=== PATIENT | female | born 1955 | race Caucasian/White ===

== ENCOUNTER → 2020-05-09 10:31 | Outpatient (CLI) | payer OTHER, SELFPAY ==
--- NOTE | ~2020-05-09 | MM_ITS ---
EXAMINATION: MM screening [facility] BI w nicky HISTORY: Screening mammogram TECHNIQUE: Craniocaudal and mediolateral oblique 3-D tomosynthesis images were obtained and synthetic 2-D images were generated. CAD analysis was submitted and interpreted. COMPARISON: 05/07/2019, 04/10/2018, 04/08/2017 BREAST PARENCHYMAL COMPOSITION: There are scattered areas of fibroglandular density. FINDINGS: There is no evidence of suspicious mass, calcification, or architectural distortion to sugg est malignancy in either breast. There has been no suspicious interval change. IMPRESSION: 1. No mammographic evidence of malignancy. 2. Recommend routine screening mammography in one year. BI-RADS Category 1: Negative Reviewed, dictated and finalized at location A. L SUPERINTENDENT
== END ==
PROVIDERS: PCP Family Medicine Adolescent Medicine; Visit Provider Obstetrics & Gynecology
DX: Z12.31 Encounter for screening mammogram for malignant neoplasm of breast (principal)
CPT/HCPCS: 77063; 77067

== ENCOUNTER 2020-08-06 09:36 | Emergency (ER) | payer MEDICARE, OTHER, SELFPAY ==
--- NOTE | ~2020-08-06 | CT_ITS ---
EXAMINATION: CT abdomen pelvis w con DATE: 08/06/2020 10:52 INDICATION: Abdominal pain. Diarrhea. Hematochezia. TECHNIQUE: Computed tomography (CT) of the abdomen and pelvis was performed with 100 mL Omnipaque 350 intravenous contrast. Automated exposure control and iterative reconstruction technique were employe d. The dose-length product was 187.22 mGy-cm. COMPARISON: None. FINDINGS: The visualized portions of the lung bases are clear without pneumonia or pleural effusion. The heart size is normal. No pericardial effusion. There is mild intrahepatic biliary duct dilatation , likely secondary to cholecystectomy. The spleen, pancreas, adrenal glands, and kidneys are normal. There is wall thickening from the transverse colon to the rectum, consistent with colitis. The append ix is normal. There are no dilated loops of bowel. There are no pathologically enlarged lymph nodes. There is no free intraperitoneal fluid. There is severe lumbar spondylosis. IMPRESSION: 1. Wall thickening from the transverse colon to the rectum, consistent with colitis. Reviewed, dictated and finalized at location A. BAKER IMPRESSION: 1. Wall thickening from the transverse colon to the rectum, consistent with col itis.
[2020-08-06 09:40] VITALS: BP 109/63; PULSE 76; RESP 20; TEMP 36.2; O2SAT 100
[2020-08-06 09:56] LABS: Basophils Absolute Auto 0.1 K/mm3 (0.0-0.1); Basophils Percent Auto 0.5 % (0.2-1.2); Eosinophils Absolute Auto 0.2 K/mm3 (0-0.3); Eosinophils Percent Auto 1.3 % (0-4.4); Hemoglobin 13.5 g/dL (12.0-15.0); Immature Granulocyte Absolute 0.04 K/mm3 (0.00-0.031); Immature Granulocyte Percent A 0.3 % (0-0.5); Lymphocytes Absolute Auto 2.29 K/mm3 (0.9-3.2); Lymphocytes Percent Auto 18.1 % (18.3-44.2); Mean Corpuscular HGB Conc 31.4 g/dl (32-36); Mean Corpuscular Hemoglobin 30.4 pg (26-34); Mean Corpuscular Volume 96.8 fl (80-100); Mean Platelet Volume 10.1 fl (7.4-10.4); Monocytes Absolute Auto 0.9 K/mm3 (0.1-0.6); Monocytes Percent Auto 6.7 % (2.6-8.5); Neutrophils Absolute Auto 9.3 K/mm3 (1.3-6.7); Neutrophils Percent Auto 73.1 % (45.5-73.1); Platelet Count Result 291 k/mm3 (150-375); Red Blood Count 4.44 M/mm3 (4.2-5.4); Red Cell Distribution Width 13.3 % (11.5-14.5); White Blood Count 12.7 K/mm3 (4.5-10.0)
[2020-08-06 10:19] LABS: Add Urine Microscopic? YES; Appearance Urine Cloudy (Clear); Bacteria Urine Trace /hpf; Bilirubin Urine Negative (Negative); Blood Urine Negative (Negative); Color Urine Yellow (Yellow); Glucose Urine UA Negative (Negative); Ketones Urine Negative (Negative); Leukocyte Esterase Ur Negative LEU/UL (Negative); Mucus Urine Heavy /lpf; Nitrate Urine Negative (Negative); Protein Urine Negative (Negative); RBC Urine 0-2 /hpf (0-2); Specific Grav Ur 1.013 (1.001-1.035); Squamous Epithelial Cell Urine Many /hpf (Few); Urobilinogen Urine Negative mg/dL (<2.0); WBC Urine 0-3 /hpf
[2020-08-06 10:24] LABS: Alanine Aminotransferase 17 U/L (4-35); Albumin Level 3.7 g/dL (3.5-5.1); Alkaline Phosphatase 57 U/L (38-126); Anion Gap 5 mmol/L (8-16); Aspartate Amino Transferase 20 U/L (14-36); Bilirubin,Total 0.5 mg/dL (0.2-1.3); Blood Urea Nitrogen 10 mg/dL (7-17); Calcium 8.9 mg/dL (8.4-10.2); Carbon Dioxide 27 mmol/L (22-30); Chloride 108 mmol/L (98-107); Estimated CRCL calculation 58 ml/min; Estimated Glomerular Filt Rate > 60; Glucose 137 mg/dL (65-105); Lipase 68 U/L (23-300); Potassium 3.9 mmol/L (3.4-5.0); Sodium 140 mmol/L (137-145)
--- NOTE | 2020-08-06 10:28 | ED.NAVMDI ---
HPI - Nausea/Vomiting/Diarrhea General Chief complaint: Nausea/Vomiting/Diarrhea Stated complaint: diarrhea Time Seen by Provider: 08/06/20 10:09 Source: patient Mode of arrival: ambulatory Limitations: no limitations History of Present Illness HPI Narrative: This is a 64-year-old female that presents the emergency department for diarrhea x3 days. Associated with crampy abdominal pain and blood in the stool. Reports she is having multiple episodes of loose stools a day. Reports nausea and vomiting as well. Denies fever, or dysuria. Related Data Home Medications Medication Instructions Recorded Confirmed diclofenac sodium 75 mg 75 mg PO BID 03/13/20 03/13/20 tablet,delayed release escitalopram oxalate 20 mg tablet 20 mg PO DAILY 03/13/20 03/13/20 methimazole 10 mg tablet 10 mg PO DAILY 03/13/20 03/13/20 omeprazole 20 mg capsule,delayed 20 mg PO DAILY 03/13/20 03/13/20 release Allergies Allergy/AdvReac Type Severity Reaction Status Date / Time No Known Allergies Allergy Verified 08/06/20 09:47 Review of Systems Review of Systems: Narrative: CONSTITUTIONAL: Denies fever GASTROINTESTINAL: Reports abdominal pain, nausea, vomiting, and diarrhea. GENITOURINARY: Denies dysuria All systems reviewed & are unremarkable except as noted in HPI and below PMFSH Past Medical History Medical History (Updated 08/06/20 @ 12:10 by Bharti Gallegos PA-C) History of depression History of gastroesophageal reflux (GERD) Surgical History Surgical History (Updated 08/06/20 @ 10:30 by Bharti Gallegos PA-C) History of cholecystectomy History of hysterectomy Family History Family History Sibling Family history of coronary artery disease Mother Family history of malignant neoplasm of breast in first degree relative Hypertension Social History Social History Smoking status: Former smoker Second hand tobacco smoke exposure: No Smoking end date: 06/30/14 Alcohol intake: current Gender identity (if verbalized by the patient): Female Exam Narrative: Exam Narrative: GENERAL: Well-appearing, well-nourished, and in no acute distress. HEAD: Normocephalic, atraumatic. EYES: EOMI. ENT: Mucous membranes moist. Oropharynx without tonsillar hypertrophy exudate or other lesions. CHEST: Clear to auscultation. No respiratory distress. No wheezes rales or rhonchi HEART: Regular rate and rhythm. No murmur heard. Normal peripheral pulses. ABDOMEN: Soft, nondistended, normal active bowel sounds. Mild tenderness to palpation throughout the abdomen, without guarding EXTREMITIES: Normal range of motion. No edema. SKIN: Warm, dry, no rash. NEURO: No focal deficits. Alert and oriented x3. PSYCH: Normal mood and affect RECTAL: Several external hemorrhoids, nonthrombosed. No active bleeding. Hemoccult negative Course Consultations Consultation #1: Spoke with Dr. Bartlett about patient and workup. Patient will be started on Levaquin and Flagyl. Instructed on clear liquid diet for the next day or two. Will call to make an appointment for follow up. Would like stool studies sent Date: 08/06/20 Time: 12:06 Vital Signs Vital signs: Vital Signs Temperature 97.1 F L 08/06/20 09:40 Pulse Rate 76 08/06/20 09:40 Respiratory Rate 20 08/06/20 09:40 Blood Pressure 109/63 08/06/20 09:40 Pulse Oximetry 100 08/06/20 09:40 Temperature 97.1 F L 08/06/20 09:40 Pulse Rate 83 08/06/20 10:34 Respiratory Rate 20 08/06/20 09:40 Blood Pressure 101/70 08/06/20 10:34 Pulse Oximetry 100 08/06/20 09:40 MDM - Nausea/Vomiting/Diarrhea MDM Narrative Medical decision making narrative: Patient presents to the ER for crampy abdominal pain and diarrhea. Was also reporting blood in stool. She is afebrile and nontoxic-appearing. Patient was orthostatic on arrival, hydrated while in the ED. CBC with mild leuko
[2020-08-06 10:32] VITALS: BP 117/52; PULSE 65
[2020-08-06 10:33] VITALS: BP 113/58; PULSE 72
[2020-08-06 10:34] VITALS: BP 101/70; PULSE 83
[2020-08-06 10:46] LABS: Prothrombin Time 13.3 Seconds (11.1-14.7)
[2020-08-06 10:47] LABS: Partial Thromboplastin Time 27.9 SECONDS (22.3-36.8)
[2020-08-06] MEDS: ONDANSETRON INJ 4 MG/2 ML VIAL IV PUSH (11:09)
[2020-08-06] MEDS: SODIUM CHLORIDE 0.9% IV 1,000 ML 999 ML IV CONT (11:09)
== END 2020-08-06 12:22 | disposition home or self-care (01) ==
PROVIDERS: Physician Assistant; Emergency Provider Emergency Medicine; PCP Family Medicine Adolescent Medicine
DX: K52.9 Noninfective gastroenteritis and colitis, unspecified (principal); K21.9 Gastro-esophageal reflux disease without esophagitis; F32.9 Major depressive disorder, single episode, unspecified; Z87.891 Personal history of nicotine dependence
CPT/HCPCS: 36415; 74177; 80053; 81001; 83690; 85025; 85610; 85730; 96361; 96374; 96375; 99284; J0131; J2405; J7030; Q9967

== ENCOUNTER → 2021-05-11 13:33 | Outpatient (CLI) | payer MEDICARE, OTHER, SELFPAY ==
--- NOTE | ~2021-05-11 | MM_ITS ---
EXAMINATION: MM screening [facility] BI w nicky HISTORY: Screening mammogram TECHNIQUE: Craniocaudal and mediolateral oblique 3-D tomosynthesis images were obtained and synthetic 2-D images were generated. Bilateral rotated lateral cc views. CAD analysis was submitted and interp reted. COMPARISON: 05/09/2020, 05/07/2019, 04/10/2018 bilateral screening mammogram examinations BREAST PARENCHYMAL COMPOSITION: The breasts are heterogeneously dense, which may obscure small masses . FINDINGS: There is no evidence of suspicious mass, calcification, or architectural distortion to sugg est malignancy in either breast. There has been no suspicious interval change. IMPRESSION: 1. No mammographic evidence of malignancy. 2. Recommend routine screening mammography in one year. BI-RADS Category 1: Negative Reviewed, dictated and finalized at location A. ING FASTENER
== END ==
PROVIDERS: PCP Family Medicine Adolescent Medicine; Visit Provider Obstetrics & Gynecology
DX: Z12.31 Encounter for screening mammogram for malignant neoplasm of breast (principal)
CPT/HCPCS: 77063; 77067

== ENCOUNTER 2021-05-16 10:00 | Outpatient (RCR) | payer MEDICARE, OTHER, SELFPAY ==
--- NOTE | 2021-04-12 15:02 | PTOPEVAL ---
INITIAL PHYSICAL THERAPY EVALUATION and PLAN OF CARE Thank you for referring Vilma Carlisle to [facility].? Vilma is scheduled to be seen for physical therapy? 1x/week for 5 weeks. Please review, sign, date and return this plan of care SO. I agree with and certify that the following plan of care is medically necessary. Referring Physician Date Admitting Provider: Attending Provider: Munir Holman MD Referring Provider: *PT Outpatient Evaluation Start: 04/12/21 13:30 Freq: Status: Active Protocol: Document 04/12/21 13:30 BAILEY (Rec: 04/12/21 15:01 BAILEY [id number]) Therapy Assessment Status Assessment Status Assessment Status Evaluation Outpatient Past Medical History Past Medical History Source of Past Medical History Recalled from Previous Visit, Confirmed with Patient/Family Neurological History Hx Neurological Disorders No Significant History Cardiovascular History Hx Cardiac Disorders No Significant History Respiratory History Hx Respiratory Disorders No Significant History Gastrointestinal History Hx Cholecystectomy Yes Hx Diverticulitis Yes Hx Gastroesophageal Reflux Disease Yes Hx Irritable Bowel Yes Genitourinary History Hx Genitourinary Disorders No Significant History Musculoskeletal History Hx Arthritis Yes: ankylosis spondylitis Hx Spinal Surgery Yes: 2 back surgeries Endocrine History Hx Hyperthyroidism Yes Reproductive History Hx Other Reproductive Disorders Yes: hysterectomy Psychosocial History Hx Anxiety Yes Hx Depression Yes Evaluation Information Problem Diagnosis other difficulties with micturition, pelvic and perineal pain Onset couple of months ago Subjective Information Vilma reports noticing a couple Query Text:As Reported By Patient/ of months ago - that she had Family the sensation that she needed to go bathroom all of the time . MD had her decrease urinary frequency - which has helped. She does have IBS - lately more loose stool than constipation - but she does have hemorrhoids. Does do exercises regularly for her back - pelvic pressure not as bad. But after her walk/run - ~4 miles 6 days/wk - will feel increase in sensation with pelvic floor region.
--- NOTE | 2021-05-16 10:57 | PTOPEVAL ---
PHYSICAL THERAPY DISCHARGE SUMMARY Thank you for referring Vilma Carlisle to [facility].? Vilma has completed 6 treatments in PT for pelvic floor strengthening and urge incontinence strategies. She has met goals set. She is to continue with her HEP as well as continue to perform levator ani contraction with current work out routine for her back. I agree with and certify that the following plan of care is medically necessary. Referring Physician Date Admitting Provider: Attending Provider: Munir Holman MD Referring Provider: Therapy Assessment Status Assessment Status Assessment Status Discharge Evaluation Information Problem Diagnosis other difficulties with micturition, pelvic and perineal pain Subjective Information Vilma reports that urination is Query Text:As Reported By Patient/ 99.9% better. Sleeping Family through the night - not getting up. Vaginal pressure sensation - varies - notices it more when up walking, shopping, etc. Did notice the sensation in the morning one time this week - which is unusual - mornings are usually the best time of day for her. Pain Assessment Timing of Pain Assessment Timing of Pain Assessment Assessment Self Report Self Report Pain Level 0 Pain Score Pain Score 0: Self Report Pelvic Health Evaluation Pelvic Floor Assessment Sustained Levator Ani Strength 3/5 - 10 ct hold Quick Levator Ani Contraction in 15 20 Seconds Rehab Teaching Rehab Teaching Teaching Topic Rehab Teaching Topic Components Anatomy/Physiology,Exercise, Home Program,Positioning As Pertains To Safety,Technique Recipient Patient Learning Preferences Demonstration,Discussion Barriers to Learning None Readiness to Learn Excellent Response Verbalizes Understanding Method Demonstration,Discussion Additional Rehab Teaching Comments review of HEP - which she is to continue with PT Clinical Summary Clinical Summary Protocol: PTEVCODE PT Clinical Summary Pelvic Organ Prolapse Distress Inventory - 33.3% Urinary Distress Inventory - 17% Vilma has done well in PT. She has increased levator ani strength and is doing well with urge strategies. She is
== END 2021-06-15 10:01 | disposition home or self-care (01) ==
LOC: ANHHIPT 10:00
PROVIDERS: PCP Family Medicine Adolescent Medicine; Visit Provider Obstetrics & Gynecology
DX: R10.2 Pelvic and perineal pain (principal); R39.198 Other difficulties with micturition
CPT/HCPCS: 97110; 97161

== ENCOUNTER → 2021-07-06 13:21 | Outpatient (CLI) | payer MEDICARE, OTHER, SELFPAY ==
--- NOTE | ~2021-07-06 | DEXA_ITS ---
Bone Density Report Name: VIJAYA KOEHLER Age: 65 Sex: Female Ethnicity: White Date of : 1955 Indication: osteopenia; monitoring treatment; height loss; hysterectomy; Referring Provider: OZIEL LOPES Study: Bone densitometry was performed. Exam Date: July 06, 2021 Accession number: [id number] Bone Density: Region BMD T-score Z-score Classification AP Spine (L1-L4) 1.007 -0.4 1.5 Normal Femoral Neck (Left) 0.592 -2.3 -0.8 Osteopenia Total Hip (Left) 0.808 -1.1 0.2 Osteopenia Femoral Neck (Right) 0.606 -2.2 -0.6 Osteopenia Total Hip (Right) 0.835 -0.9 0.4 Normal Total Hip Mean 0.822 -1.0 0.3 Normal World Health Organization criteria for BMD impression classify patients as: Normal (T-score at or above -1.0), Osteopenia (T-score between -1.0 and -2.5), or Osteoporosis (T-score at or below -2.5). 10-year Fracture Risk: FRAX not reported because: Treated for osteoporosis Previous Exams: Region Exam Age BMD T-score BMD Change BMD Change Date g/cm2 vs Baseline vs Previous AP Spine(L1-L4) 07/06/2021 65 1.007 -0.4 0.015 -0.057* 05/07/2019 63 1.064 0.2 0.072* -0.003 04/08/2017 61 1.067 0.2 0.075* 0.020 03/08/2015 59 1.047 0.0 0.055* 0.061* 02/27/2013 57 0.986 -0.6 -0.006 -0.056* 02/25/2011 55 1.042 0.0 0.050* 0.050* 01/11/2009 53 0.992 -0.5 Total Hip(Left) 07/06/2021 65 0.808 -1.1 0.026 -0.004 05/07/2019 63 0.812 -1.1 0.030* -0.018 04/08/2017 61 0.830 -0.9 0.048* 0.018 03/08/2015 59 0.812 -1.1 0.030* 0.024 02/27/2013 57 0.788 -1.3 0.006 -0.015 02/25/2011 55 0.803 -1.1 0.021 0.021 01/11/2009 53 0.782 -1.3 Total Hip(Right) 07/06/2021 65 0.835 -0.9 0.067* 0.039* 05/07/2019 63 0.796 -1.2 0.028* -0.022 04/08/2017 61 0.818 -1.0 0.050* 0.032* 03/08/2015 59 0.786 -1.3 0.018 0.004 02/27/2013 57 0.782 -1.3 0.014 0.001 02/25/2011 55 0.780 -1.3 0.013 0.013 01/11/2009 53 0.768 -1.4 *Denotes significance at 95% confidence level, LSC for AP Spine = 0.022 g/cm2, LSC for Total Hip = 0.027 g/cm2 Clinical Information Provided by Patient: Is being treated for osteoporosis Has used
== END ==
PROVIDERS: Visit Provider Obstetrics & Gynecology
DX: Z78.0 Asymptomatic menopausal state (principal); M85.852 Other specified disorders of bone density and structure, left thigh; M85.851 Other specified disorders of bone density and structure, right thigh
CPT/HCPCS: 77080

== ENCOUNTER 2022-05-10 11:47 | Outpatient (CLI) | payer MEDICARE, OTHER, SELFPAY ==
--- NOTE | 2022-05-10 12:50 | ECG_ITS ---
Measurements Intervals [place] Rate: 55 P: 56 [place]: 151 QRS: 55 QRSD: 89 T: 45 QT: 425 QTc: 410 Interpretive Statements SINUS BRADYCARDIA BASELINE ARTIFACT- I, III BORDERLINE ECG NO PREVIOUS ECG AVAILABLE FOR COMPARISON Electronically Signed On 05-10-2022 13:26:13 LIME MIXER by William Enrique D.O.
[2022-05-10 13:11] LABS: Basophils Absolute Auto 0.1 K/mm3 (0.0-0.1); Basophils Percent Auto 0.6 % (0.2-1.2); Eosinophils Absolute Auto 0.2 K/mm3 (0-0.3); Eosinophils Percent Auto 2.4 % (0-4.4); Hematocrit 38.6 % (37.0-47.0); Hemoglobin 12.2 g/dL (12.0-15.0); Immature Granulocyte Absolute 0.02 K/mm3 (0.00-0.031); Immature Granulocyte Percent A 0.2 % (0-0.5); Lymphocytes Absolute Auto 3.55 K/mm3 (0.9-3.2); Lymphocytes Percent Auto 38.1 % (18.3-44.2); Mean Corpuscular HGB Conc 31.6 g/dl (32-36); Mean Corpuscular Hemoglobin 30.4 pg (26-34); Mean Corpuscular Volume 96.3 fl (80-100); Mean Platelet Volume 9.8 fl (7.4-10.4); Monocytes Absolute Auto 0.7 K/mm3 (0.1-0.6); Monocytes Percent Auto 7.7 % (2.6-8.5); Neutrophils Absolute Auto 4.8 K/mm3 (1.3-6.7); Platelet Count Result 273 k/mm3 (150-375); Red Blood Count 4.01 M/mm3 (4.2-5.4); Red Cell Distribution Width 13.7 % (11.5-14.5); White Blood Count 9.3 K/mm3 (4.5-10.0)
[2022-05-10 13:25] LABS: Alanine Aminotransferase 25 U/L (6-35); Albumin Level 4.1 g/dL (3.5-5.1); Alkaline Phosphatase 60 U/L (38-126); Anion Gap 6 mmol/L (8-16); Aspartate Amino Transferase 27 U/L (14-36); Bilirubin,Total 0.8 mg/dL (0.2-1.3); Blood Urea Nitrogen 20 mg/dL (7-17); Calcium 8.5 mg/dL (8.4-10.2); Carbon Dioxide 28 mmol/L (22-30); Chloride 101 mmol/L (98-107); Estimated Glomerular Filt Rate > 60; Glucose 86 mg/dL (65-110); Potassium 4.1 mmol/L (3.4-5.0); Sodium 135 mmol/L (137-145)
[2022-05-10 13:28] LABS: INR 1.1; Prothrombin Time 13.3 Seconds (11.1-14.7)
[2022-05-10 13:29] LABS: Partial Thromboplastin Time 29.2 SECONDS (22.3-36.8)
== END 2022-05-10 11:48 | disposition home or self-care (01) ==
LOC: ANHSURGERY 11:52
PROVIDERS: PCP Family Medicine Adolescent Medicine; Visit Provider Urology
DX: N81.10 Cystocele, unspecified (principal); E78.00 Pure hypercholesterolemia, unspecified; Z01.818 Encounter for other preprocedural examination; R94.31 Abnormal electrocardiogram [ECG] [EKG]
CPT/HCPCS: 36415; 80053; 85025; 85610; 85730; 86850; 86900; 86901; 87086; 93005

== ENCOUNTER 2022-05-20 00:55 | Day surgery (SDC) | payer MEDICARE, OTHER, SELFPAY ==
[2022-05-10 12:11] VITALS: BP 123/54; PULSE 62; RESP 16; TEMP 36.7; O2SAT 100; BMI 23.3
--- NOTE | 2022-05-10 12:25 | PC.NURSE ---
Report to the Outpatient Waiting Room, entrance under the green pavilion located off [facility], at time _10:30AM on date __05/20/22 . Planned Procedure Time: __12:30PM . Time changes happen often and if your time is changed the preop area will call you the afternoon before. - You and your visitor will be asked to self-screen and do not enter if you have any COVID symptoms. - We encourage only one visitor and NO visitors under age 16 are allowed at this time. Your visitor will receive communication by the phone number that is given day of service. - The patient visitor is requested to social distance or may leave the building when not with patient due to restrictions. - A mask is required within the hospital. Patients may have clear liquids (water, carbonated beverages, clear teas, apple juice) until 3 hours prior to surgery with a maximum of 20 ounces. - No food from midnight until time of surgery Take the following medications with a SIP of water the morning of surgery: __ALPRAZOLAM NEEDED, ESCITALOPRAM Medications to discontinue per physician ____HOLD ALL VITAMINS/SUPPLEMENTS 3 DAYS PRE-OP-LAST DOSE 05/16/22. HOLD DICLOFENAC 7 DAYS PRE-OP PER DR MIRELES(PER PT)- LAST DOSE 05/13/22____ Please no make-up, nail romansh, hairspray, perfume, deodorant, or body powder the day of surgery. No jewelry (including any body piercings) or valuables the day of surgery, leave them at home. Please take a shower or bath the night before, or the morning of, surgery with an antibacterial soap. Wear comfortable, loose fitting clothing. Children are encouraged to wear pajamas. - Jewelry must be removed prior to entering the operating room. Rings and piercings that are not removed may be cut off. - The hospital will not accept responsibility for valuables. - Please leave all valuables, including medications, at home the day of surgery. If you are going home after surgery, a licensed company driver must drive you home. - NO public transportation without another adult. - We recommend that an adult stay with you for 24 hours following discharge. - We also recommend that you do not drive, make important decision, drink alcoholic beverages, or take any drugs that were not prescribed by your health care provider for at least 24 hours after your discharge time. Follow any additional instructions given to you from your surgeon. If you or anyone in your household have experienced Covid symptoms in the past week, please notify your surgeon or the nurse liaison at the phone number below for possible testing. Telephone instructions given to __PATIENT and asked if any additional questions and then verbalized understanding. Patient advised to call surgeon office or pre surgery nurse liaison [phone] if any additional questions.
--- NOTE | 2022-05-12 14:12 | PM.IMHP ---
H&P: HPI History of Present Illness Date/Time: 05/12/22 14:12 Chief Complaint: prolapse Narrative: 66-year-old with pelvic organ prolapse. She is not happy with the pessary. She has no stress incontinence. She is presenting for a surgical procedure Review of Systems Review of Systems: All systems reviewed & are unremarkable except as noted in HPI and below PMFSH Past Medical History Medical History History of depression History of gastroesophageal reflux (GERD) [facility] Surgical History Surgical History History of cholecystectomy History of hysterectomy Family History Family History Sibling Family history of coronary artery disease Mother Family history of malignant neoplasm of breast in first degree relative Hypertension Social History Social History Smoking packs per day: 1 Smoking cigarettes per day: 20.0 Years smoked: 20 Smoking pack-years: 20.00 Smoking status: Former smoker Tobacco type: cigarettes Second hand tobacco smoke exposure: No Smoking end date: 12/28/01 Alcohol intake: current Drinks per week: 2 Substance use: never Additional living arrangements comments: GIA Gender identity (if verbalized by the patient): Female Spiritual care concerns: No Meds Home Medications and Allergies Home Medications Medication Instructions Recorded Confirmed Type diclofenac sodium 75 mg 75 mg PO BID 03/13/20 05/10/22 History tablet,delayed release calcium carbonate 600 mg calcium 600 mg PO BID 03/22/21 05/10/22 History (1,500 mg) tablet (Calcium) golimumab 12.5 mg/mL intravenous See Rx Instructions .Route .COMPLEX 03/22/21 05/10/22 History solution (Simponi ARIA) methimazole 5 mg tablet 5 mg PO DAILY #90 tabs 12/03/21 05/10/22 Rx alprazolam 0.25 mg tablet 0.25 mg PO TID PRN anxiety #20 tabs 01/10/22 05/10/22 Rx oxyquinoline 0.025 %-sodium lauryl See Rx Instructions vaginal 03/12/22 05/10/22 Rx sulfate 0.01 % vaginal gel .COMPLEX #113.4 grams (Trimo-Abernathy Jelly) estradiol 1 mg tablet 1 mg PO DAILY #90 tabs 04/18/22 05/10/22 Rx atorvastatin 20 mg tablet 20 mg PO DAILY #90 tabs 05/03/22 05/10/22 Rx escitalopram oxalate 20 mg tablet See Rx Instructions .Route 05/09/22 05/10/22 Rx .COMPLEX #90 tabs omeprazole 20 mg capsule,delayed See Rx Instructions .Route 05/09/22 05/10/22 Rx release .COMPLEX #90 caps acetaminophen 650 mg 650 mg PO Q12H PRN Pain 05/10/22 05/10/22 History tablet,extended release (Tylenol Arthritis Pain) fluticasone propionate 50 See Rx Instructions .Route 05/10/22 05/10/22 History mcg/actuation nasal .COMPLEX PRN Congestion spray,suspension zolpidem 10 mg tablet 5 mg PO QHS 05/10/22 05/10/22 History Allergies Allergy/AdvReac Type Severity Reaction Status Date / Time No Known Allergies Allergy Verified 05/10/22 11:59 Exam Narrative: no acute distress normal breathing cystocele a +2 loss of apical support -1 Assessment and Plan Assessment and plan (1) Prolapse of vaginal vault after hysterectomy: Code(s): N99.3 - Prolapse of vaginal vault after hysterectomy Status: Acute Assessment and Plan: robotic colpopexy. Understands the risks of bleeding, infection, recurrence, persistence, damage surrounding organs, vaginal mesh extrusion, urinary tract mesh erosion, postoperative incontinence. Agrees to proceed
--- NOTE | 2022-05-17 16:09 | WPDANESEPPF ---
Anes - Initial Pre Proc Eval Procedure: Operation Date: 05/20/22 12:30 Proposed Procedures p Robotic Sacrocolpopexy, Urethral Sling - Erik Lynch MD Date/Time: 05/17/22 16:09 Surgeon: Erik Lynch MD Pre Op Diagnosis: prolapse of vaginal vault Patient Data Age: 66 Gender: F Height: 1.61 m Weight: 60.7 kg Last Vital Signs Temp 36.7 C 05/10/22 12:11 Pulse 62 05/10/22 12:11 Resp 16 05/10/22 12:11 BP 123/54 L 05/10/22 12:11 Pulse Ox 100 05/10/22 12:11 O2 Del Method Room Air 05/10/22 12:11 Allergies Allergy/AdvReac Type Severity Reaction Status Date / Time No Known Allergies Allergy Verified 05/20/22 11:03 Home Medications Medication Instructions Recorded Confirmed Type diclofenac sodium 75 mg 75 mg PO BID 03/13/20 05/10/22 History tablet,delayed release calcium carbonate 600 mg calcium 600 mg PO BID 03/22/21 05/10/22 History (1,500 mg) tablet (Calcium) golimumab 12.5 mg/mL intravenous See Rx Instructions .Route .COMPLEX 03/22/21 05/10/22 History solution (Simponi ARIA) methimazole 5 mg tablet 5 mg PO DAILY #90 tabs 12/03/21 05/10/22 Rx alprazolam 0.25 mg tablet 0.25 mg PO TID PRN anxiety #20 tabs 01/10/22 05/20/22 Rx oxyquinoline 0.025 %-sodium lauryl See Rx Instructions vaginal 03/12/22 05/10/22 Rx sulfate 0.01 % vaginal gel .COMPLEX #113.4 grams (Trimo-Abernathy Jelly) estradiol 1 mg tablet 1 mg PO DAILY #90 tabs 04/18/22 05/10/22 Rx atorvastatin 20 mg tablet 20 mg PO DAILY #90 tabs 05/03/22 05/10/22 Rx escitalopram oxalate 20 mg tablet See Rx Instructions .Route 05/09/22 05/20/22 Rx .COMPLEX #90 tabs omeprazole 20 mg capsule,delayed See Rx Instructions .Route 05/09/22 05/10/22 Rx release .COMPLEX #90 caps acetaminophen 650 mg 650 mg PO Q12H PRN Pain 05/10/22 05/10/22 History tablet,extended release (Tylenol Arthritis Pain) fluticasone propionate 50 See Rx Instructions .Route 05/10/22 05/10/22 History mcg/actuation nasal .COMPLEX PRN Congestion spray,suspension zolpidem 10 mg tablet 5 mg PO QHS 05/10/22 05/10/22 History Patient hx anesthesia problems: none Family hx anesthesia problems: none Results Review: All pre-operative results and documents have been reviewed as part of the pre-operative evaluation. [facility] Past Medical History Medical History (Updated 05/17/22 @ 16:10 by Hugo Bustos MD) Ankylosing spondylitis Anxiety History of depression History of gastroesophageal reflux (GERD) Major depressive disorder, recurrent, mild Normal colonoscopy 04/19 [facility] Osteopenia Surgical History Surgical History History of cholecystectomy History of hysterectomy Family History Family History Sibling Family history of coronary artery disease Mother Family history of malignant neoplasm of breast in first degree relative Hypertension Social History Social History Smoking packs per day: 1 Smoking cigarettes per day: 20.0 Years smoked: 20 Smoking pack-years: 20.00 Smoking status: Former smoker Tobacco type: cigarettes Second hand tobacco smoke exposure: No Smoking end date: 12/28/01 Alcohol intake: current Drinks per week: 2 Substance use: never Living arrangements: with family Additional living arrangements comments: GIA Gender identity (if verbalized by the patient): Female Spiritual care concerns: No Anes - Eval Final PreProcedure Day of Procedure 05/17/22 16:09 Patient weight: normal Heart: regular rate and rhythm Lungs: clear to auscultation and normal air movement Airway: Mallampati scale class II Neurological: alert and oriented Last oral intake: >/= 8 hours ASA classification: III Emergent: no Anesthetic plan: proceed Anesthesia type and monitoring: general ETT Results Revi
[2022-05-20] VITALS (11 sets, daily range): BP systolic 120–143; BP diastolic 60–74; PULSE 57–83; RESP 12–20; TEMP 36.2–36.7; O2SAT 94–100
--- NOTE | 2022-05-20 07:16 | WPDHPUPDATE1 ---
History and Physical Update Update Date/Time: 05/20/22 07:16 History and Physical has been reviewed, including an updated exam of the patient. There are NO changes in the patient's condition. Risks, benefits, and alternatives have been discussed and questions answered. Patient agrees to proceed with procedure.
[2022-05-20] MEDS: LACTATED RINGERS 1,000 ML 30 ML IV CONT ×2 (11:03→14:30)
[2022-05-20] MEDS: ceFAZolin 2 GM/D5W 50 ML 2 GM/50 ML BAG IVPB (12:17)
--- NOTE | 2022-05-20 14:23 | P.OP_ITS ---
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 She desires surgical correction. She understands risks of bleeding, infection, diskitis, damage to surrounding organs, damage to the bowel or urinary tract, recurrence of prolapse, dyspareunia, vaginal mesh exposure, urinary tract mesh exposure, obstructive voiding requiring secondary procedure, hip and leg pain, postoperative stress incontinence, and other perioperative intraoperative and postoperative complications. She is to proceed Findings See below Description of Procedure She was correctly identified. Informed consent obtained. She is brought to the operating room. She was given general anesthesia. She was placed in the lithotomy position. She was given appropriate perioperative antibiotics. She was prepped and draped in a sterile fashion. A time-out performed. I anesthetized the skin 3 fingerbreadths cephalad to the umbilicus. I incised the skin. I located the fascia. I grasped the fascia with Katiana clamps. I incised the fascia sharply and a Lockhart type technique. I placed Vicryl sutures for later fascial closure. I placed a midline trocar. Under direct vision placed 2 additional trocars in the right upper quadrant and 2 additional trocars in the left upper quadrant. She was placed in steep Trendelenburg. The robot was docked. I sat at the console. With the Sizer in the vagina and created a plane on the anterior and posterior vaginal wall for several cm taking great care not to injure the vagina, bladder, or rectum. I introduced the mesh into the vagina. I sewed the anterior leaflet of mesh on the anterior vaginal wall and posterior leaf of the mesh on the posterior vaginal wall with several suture s of 2 0 [place]-Tarik taking great care not to go through and through. I then opened up the peritoneum over the sacral promontory. I carried this incision into the cul-de-sac. I freed up the edges for later retroperitonealization of the mesh. I located the anterior longitudinal ligament of the sacrum. I cleaned off any fatty tissues. I then tensioned my mesh appropriately. I did a vaginal exam to ensure prolapse reduction without undue tension. I then sewed the proximal leaflet of mesh onto the ligament with several sutures of 2 0 [place]- Tarik. I then used a 2 0 Monocryl to meticulously retroperitonealized all mesh. I allowed the colon to go back into its normal anatomic location. There is no sign of impingement. The abdomen was exited and the trocars removed. The fascial sutures were tied down. The wounds were all irrigated and closed with 4 O Monocryl and skin glue. She was then repositioned for cystoscopy. The bladder showed no evidence of surgical artifact or tumor. Both ureters were seen to excrete clear yellow urine and wires were passed up both ureters to document patency. I cut the excess sling material. I closed incisions with glue. She was awakened and transferred to the PACU in stable condition. Implants Sacral colpopexy mesh Urethral sling Estimated Blood Loss 10 Packing No Pathology None sent Complications No immediate complications Condition Stable Disposition PACU
[2022-05-20] MEDS: fentaNYL CITRATE INJ (*CRX) 100 MCG/2 ML VIAL 25 MCG IV PUSH ×4 (15:03→15:25)
== END 2022-05-20 16:55 | disposition home or self-care (01) ==
PROVIDERS: PCP Family Medicine Adolescent Medicine; Visit Provider Urology
PROC: (CPT 57425; principal; 2022-05-20 12:30)
DX: N99.3 Prolapse of vaginal vault after hysterectomy (principal); K21.9 Gastro-esophageal reflux disease without esophagitis; F32.A Depression, unspecified; F41.9 Anxiety disorder, unspecified; M85.80 Other specified disorders of bone density and structure, unspecified site; Z87.891 Personal history of nicotine dependence
CPT/HCPCS: 57425; 57288; A9270; C1758; C1769; C1781; C9290; J0461; J0690; J1100; J1170; J2250; J2370; J2405; J2704; J3010; J7030; J7120

== ENCOUNTER → 2022-07-04 10:51 | Outpatient (CLI) | payer MEDICARE, OTHER, SELFPAY ==
--- NOTE | ~2022-07-04 | MMUS_ITS ---
EXAMINATION: MM diagnostic sahil BI w nicky, US breast LT limited HISTORY: Palpable lump in the upper outer quadrant of the left breast TECHNIQUE: Craniocaudal, mediolateral, and mediolateral oblique 3-D tomosynthesis images of the breas ts were performed and synthetic 2-D images were generated. CAD analysis was submitted and interpreted . High resolution limited left breast ultrasound was performed. COMPARISON: 05/11/2021, 05/09/2020, 05/09/2019 BREAST PARENCHYMAL COMPOSITION: The breasts are heterogeneously dense, which may obscure small masses . FINDINGS: MAMMOGRAPHIC FINDINGS: No suspicious mass, calcification, or architectural distortion are identified in either breast to sug gest malignancy. There has been no suspicious interval change. No mammographic correlate is identifie d for the reported palpable abnormality of concern of the left breast. ULTRASOUND: There is no evidence of focal abnormal solid or cystic mass in the vicinity of the reported palpable abnormality of concern of the left breast. IMPRESSION: 1. No specific mammographic or sonographic correlate is identified for the reported palpable abnormal ity of concern. Further evaluation at this time should be based on clinical assessment. Continued fol low-up physical examination is recommended. 2. Recommend routine screening mammography in one year. BI-RADS Category 1: Negative Reviewed, dictated and finalized at location A. NCED NURSING PROFESSOR IMPRESSION: 1. No specific mammographic or sonographic correlate is identified for the repo rted palpable abnormality of concern. Further evaluation at this time should be based on clinical assessment. Continued follow-up physical examination is dylon mmended. 2. Recommend routine screening mammography in one year. BI-RADS Category 1: Negative
== END ==
PROVIDERS: PCP Family Medicine Adolescent Medicine; Visit Provider Obstetrics & Gynecology
DX: N63.21 Unspecified lump in the left breast, upper outer quadrant (principal)
CPT/HCPCS: 76642; 77062; 77066; G0279

== ENCOUNTER 2022-08-28 14:27 | Emergency (ER) | payer MEDICARE, OTHER, SELFPAY ==
[2022-08-28] VITALS (16 sets, daily range): BP systolic 109–136; BP diastolic 53–75; PULSE 52–72; RESP 9–27; TEMP 35.7–37.3; O2SAT 84–100
--- NOTE | ~2022-08-28 | CT_ITS ---
EXAMINATION: CTA chest PE protocol DATE: 08/28/2022 21:59 INDICATION: Transient alteration of awareness TECHNIQUE: Computed tomography angiography (CTA) of the chest was performed with 100 mL Omnipaque-350 intravenous contrast timed to evaluate the pulmonary arteries. Coronal maximum intensity projection 3D-reconstructions were created by the technologist. The dose-length product (DLP) was 156.44 mGy-cm. Automated exposure control and iterative reconstruction technique were employed. COMPARISON: None. FINDINGS: The pulmonary arteries are well-opacified. No pulmonary embolism is identified. The lungs a re free of acute opacities. No pleural effusion or pneumothorax. No pathologically enlarged thoracic lymph nodes are identified. The heart size is normal. There is a moderate-sized sliding hiatal hernia . The gallbladder is surgically absent. There is mild dependent atelectasis. IMPRESSION: 1. No pulmonary embolism or acute cardiopulmonary abnormality. Reviewed, dictated and finalized at location F. ERTIBLE TOP INSTALLER
--- NOTE | ~2022-08-28 | XR_ITS ---
EXAMINATION: XR chest 1V portable INDICATION: Transient alteration of awareness TECHNIQUE: Portable AP chest at 2015 hours COMPARISON: 10/27/2006 FINDINGS: The lungs are free of acute opacities. No pleural effusion or pneumothorax. The cardiomedia stinal silhouette is normal. The visualized bones and soft tissues are unremarkable. Surgical clips i n the right upper quadrant are likely from prior cholecystectomy. IMPRESSION: 1. No acute cardiopulmonary abnormality. Reviewed, dictated and finalized at location F. ORMANCE MAKEUP ARTIST
--- NOTE | 2022-08-28 15:10 | ECG_ITS ---
Measurements Intervals [place] Rate: 50 P: 57 DC: 138 QRS: 69 QRSD: 93 T: 49 QT: 450 QTc: 414 Interpretive Statements SINUS BRADYCARDIA BASELINE ARTIFACT- I, III, AVR, AVL, V1 BORDERLINE ECG COMPARED TO ECG 05/10/2022 13:10:39 NO SIGNIFICANT CHANGES Electronically Signed On 08-28-2022 15:39:17 FARM MANAGEMENT TEACHER by William Enrique D.O.
[2022-08-28 15:30] LABS: Basophils Absolute Auto 0.1 K/mm3 (0.0-0.1); Basophils Percent Auto 0.3 % (0.2-1.2); Eosinophils Absolute Auto 0.2 K/mm3 (0-0.3); Eosinophils Percent Auto 1.2 % (0-4.4); Hematocrit 38.8 % (37.0-47.0); Hemoglobin 12.4 g/dL (12.0-15.0); Immature Granulocyte Absolute 0.05 K/mm3 (0.00-0.031); Immature Granulocyte Percent A 0.3 % (0-0.5); Lymphocytes Absolute Auto 2.32 K/mm3 (0.9-3.2); Mean Corpuscular Hemoglobin 30.4 pg (26-34); Mean Corpuscular Volume 95.1 fl (80-100); Mean Platelet Volume 10.5 fl (7.4-10.4); Monocytes Absolute Auto 1.2 K/mm3 (0.1-0.6); Monocytes Percent Auto 8.5 % (2.6-8.5); Neutrophils Absolute Auto 10.7 K/mm3 (1.3-6.7); Neutrophils Percent Auto 73.7 % (45.5-73.1); Platelet Count Result 239 k/mm3 (150-375); Red Blood Count 4.08 M/mm3 (4.2-5.4); Red Cell Distribution Width 13.8 % (11.5-14.5); White Blood Count 14.5 K/mm3 (4.5-10.0)
[2022-08-28 15:48] LABS: Alanine Aminotransferase 31 U/L (6-35); Alkaline Phosphatase 55 U/L (38-126); Anion Gap 2 mmol/L (8-16); Aspartate Amino Transferase 31 U/L (14-36); Bilirubin,Total 0.6 mg/dL (0.2-1.3); Blood Urea Nitrogen 16 mg/dL (7-17); Calcium 8.8 mg/dL (8.4-10.2); Carbon Dioxide 32 mmol/L (22-30); Chloride 102 mmol/L (98-107); Estimated CRCL calculation 56 ml/min; Estimated Glomerular Filt Rate > 60; Glucose 96 mg/dL (65-110); Potassium 4.2 mmol/L (3.4-5.0); Sodium 136 mmol/L (137-145)
--- NOTE | 2022-08-28 20:15 | ED.GENADULT ---
HPI - General Adult General Chief complaint: Syncope Stated complaint: surgery today, syncope after got home Time Seen by Provider: 08/28/22 20:03 Source: RN notes reviewed History of Present Illness HPI narrative: Patient presents emergency department from home for syncopal episode. Patient states syncopal episode occurred just prior to arrival approximately 1:30 PM today. Patient had a cystoscopy sling procedure done this morning by Dr. Lynch states that she had returned home she states upon returning home she had taken her [place] and had gone to sleep. States that she had woken up at approximately 1 and had laid in bed and was talking her states she then got up to go to the bathroom and gone to the bathroom and sat down on the toilet she states she she had gone to the bathroom got up off the toilet and then was walking back out and was going to be taking her pain medication when she began to feel dizzy then had a syncopal episode. Per the patient's who is present also gives history the patient was caught before she fell the patient had a brief loss of consciousness and was back to being awake they called Dr. Lynch's office and was recommended come in for further evaluation. Patient is currently laying in bed and has no complaints of pain other than being sore in the pelvic region from her surgery she denies any fevers or chills chest pain shortness of breath abdominal pain or any other symptoms Related Data Home Medications Medication Instructions Recorded Confirmed calcium carbonate 600 mg calcium 600 mg PO BID 03/22/21 08/20/22 (1,500 mg) tablet (Calcium) golimumab 12.5 mg/mL intravenous See Rx Instructions .Route .COMPLEX 03/22/21 08/20/22 solution (Simponi ARIA) acetaminophen 650 mg 650 mg PO Q12H PRN Pain 05/10/22 08/20/22 tablet,extended release (Tylenol Arthritis Pain) fluticasone propionate 50 See Rx Instructions .Route 05/10/22 08/20/22 mcg/actuation nasal .COMPLEX PRN Congestion spray,suspension meloxicam 7.5 mg tablet 7.5 mg PO DAILY 08/20/22 08/20/22 Allergies Allergy/AdvReac Type Severity Reaction Status Date / Time No Known Allergies Allergy Verified 08/20/22 09:47 Review of Systems Review of Systems: Gen.: Denies fevers or chills ENT: Denies congestion Respiratory: Denies shortness of breath or cough CV: Reports syncope GI: Denies abdominal pain nausea, emesis or diarrhea denies burning, urgency, frequency or hematuria Musculoskeletal: Denies back pain or muscle pain Neuro: Denies numbness, tingling, weakness or focal weakness Skin: Denies rash Except as documented, all other systems reviewed and negative PMFSH Past Medical History Medical History Ankylosing spondylitis Anxiety History of depression History of gastroesophageal reflux (GERD) Major depressive disorder, recurrent, mild Normal colonoscopy 04/19 [facility] Osteopenia Surgical History Surgical History History of cholecystectomy History of hysterectomy Family History Family History Sibling Family history of coronary artery disease Mother Family history of malignant neoplasm of breast in first degree relative Hypertension Social History Social History Smoking packs per day: 1 Smoking cigarettes per day: 20.0 Years smoked: 20 Smoking pack-years: 20.00 Smoking status: Former smoker Tobacco type: cigarettes Second hand tobacco smoke exposure: No Smoking end date: 12/28/01 Alcohol intake: current Drinks per week: 2 Substance use: never Living arrangements: with family Additional living arrangements comments: HUSB Gender identity (if verbalized by the patient): Female Spiritual care concerns: No Exam Narrative: APPE
[2022-08-28] MEDS: SODIUM CHLORIDE 0.9% IV 1,000 ML 999 ML IV CONT (20:28)
[2022-08-28 21:02] LABS: Prothrombin Time 13.2 Seconds (11.1-14.7)
[2022-08-28 21:03] LABS: Partial Thromboplastin Time 29.2 SECONDS (22.3-36.8)
[2022-08-28 21:26] LABS: Appearance Urine Clear (Clear); Bilirubin Urine Negative (Negative); Blood Urine Trace-intact (Negative); Color Urine Yellow (Yellow); Glucose Urine UA Negative (Negative); Ketones Urine Negative (Negative); Leukocyte Esterase Ur Negative LEU/UL (Negative); Nitrate Urine Negative (Negative); Protein Urine Negative (Negative); Specific Grav Ur 1.015 (1.001-1.035); pH Urine 8.5 (5.0-9.0)
[2022-08-28 21:31] LABS: Add Urine Microscopic? NO
[2022-08-28 21:38] LABS: Troponin I < 0.012 ng/mL (0.000-0.034)
[2022-08-28 21:47] LABS: Bacteria Urine Trace /hpf; Squamous Epithelial Cell Urine Rare /hpf (Few); WBC Urine 0-3 /hpf
[2022-08-29 00:02] LABS: Troponin I < 0.012 ng/mL (0.000-0.034)
[2022-08-29 00:36] VITALS: BP 132/78; PULSE 69; RESP 16; O2SAT 99
== END 2022-08-29 00:38 | disposition home or self-care (01) ==
PROVIDERS: Emergency Medicine; Emergency Provider Emergency Medicine; PCP Family Medicine Adolescent Medicine
DX: R55 Syncope and collapse (principal); Z98.890 Other specified postprocedural states; F33.0 Major depressive disorder, recurrent, mild; F41.9 Anxiety disorder, unspecified; M85.80 Other specified disorders of bone density and structure, unspecified site; Z87.891 Personal history of nicotine dependence
CPT/HCPCS: 36415; 71045; 71275; 80053; 81003; 84484; 85025; 85610; 85730; 93005; 96360; 96361; 99284; J7030; Q9967

== ENCOUNTER 2022-09-11 10:26 | Outpatient (CLI) | payer MEDICARE, OTHER, SELFPAY ==
--- NOTE | ~2022-09-11 | US_ITS ---
EXAMINATION: US thyroid DATE: 09/11/2022 11:35 INDICATION: Thyrotoxicosis with diffuse goiter TECHNIQUE: Multiple ultrasound images of the thyroid were obtained. COMPARISON: 05/20/2018 FINDINGS: The right thyroid lobe measures 5.4 x 2.8 x 2.8 cm. The left thyroid lobe measures 4.2 x 1.7 x 1.9 c m. Again seen are multiple bilateral thyroid nodules. The largest is a 2.8 x 1.7 x 2.0 cm solid wide r than tall hypoechoic nodule with smooth margins and without echogenic foci (TI-RADS 4, moderately s uspicious , FNA if >=1.5 cm, annual followup is >=1 cm) , previously measuring 2.4 x 1.4 x 1.9 cm . The next largest is a 1.8 x 1.8 x 1.6 cm predominantly solid hypoechoic nodule in the lateral right t hyroid with smooth well-defined margins and without echogenic foci (TI-RADS 5, highly suspicious , FN A if >=1.0 cm, annual followup is >0.5 cm) which previously measured 1.9 x 1.3 x 1.1 cm and previousl y biopsied on 06/05/2018. Also unchanged is a similar appearing 1.3 x 0.5 cm TI RADS 5 nodule the righ t side of the thyroid isthmus. 1.7 cm also completely cystic TI RADS 1 nodule in the inferior right t hyroid. No significant interval change in a 1.3 x 0.9 x 0.7 cm TI RADS 5 solid hypoechoic nodule with echogenic foci in the deep left thyroid previously measuring 1.2 x 0.9 x 0.5 cm, also with interval biopsy. The remaining bilateral thyroid nodules all measure less than 1 cm . IMPRESSION: 1. Stable appearance of a multinodular goiter with no significant interval change including of the pr eviously biopsied 2 largest TI RADS 5 nodules. Correlate with pathology from the prior biopsies which is not currently available on the electronic medical record. Reviewed, dictated and finalized at location B. IMPRESSION: 1. Stable appearance of a multinodular goiter with no significant interval jacob ge including of the previously biopsied 2 largest TI RADS 5 nodules. Correlate with pathology from the prior biopsies which is not currently available on the electronic medical record.
== END 2022-09-11 10:27 | disposition home or self-care (01) ==
PROVIDERS: PCP Family Medicine Adolescent Medicine; Visit Provider Physician Assistant
DX: E05.00 Thyrotoxicosis with diffuse goiter without thyrotoxic crisis or storm (principal); E04.2 Nontoxic multinodular goiter
CPT/HCPCS: 76536

== ENCOUNTER 2022-09-24 10:30 | Outpatient (CLI) | payer MEDICARE, OTHER, SELFPAY ==
--- NOTE | 2022-09-27 11:44 | WPDHOLTEREM ---
Holter/Event Monitor Holter/Event Monitor Date of procedure: 09/24/22 Holter/Event Procedure: 48 Hr Holter Monitor Indications: Palpitations Conclusion: 1. 48 hour holter monitor on 09/24/22. 2. Underlying rhythm is sinus rhythm. HR range 44-118 bpm; average HR 56 bpm. 3. There are 17 premature supraventricular complexes and 1 supraventricular couplet. No supraventricular tachycardia. 4. No premature ventricular complexes. No ventricular tachycardia. 5. No sinoatrial or atrioventricular blocks. No significant pauses greater than 2 seconds. 6. Patient reports symptoms of lightheadedness, rapid heart beat which demonstrate sinus rhythm, HR range 65-88 bpm.
== END 2022-09-24 10:31 | disposition home or self-care (01) ==
LOC: ANHCARD 10:31
PROVIDERS: PCP Family Medicine Adolescent Medicine; Visit Provider Physician Assistant
DX: R00.2 Palpitations (principal); R55 Syncope and collapse
CPT/HCPCS: 93225; 93226

== ENCOUNTER 2023-07-10 13:29 | Outpatient (CLI) | payer MEDICARE, OTHER, SELFPAY ==
--- NOTE | ~2023-07-10 | NM_ITS ---
EXAMINATION: NM thyroid scan w uptake DATE: 07/11/2023 14:24 INDICATION: Multinodular goiter. Rule out toxic nodule. COMPARISON: Ultrasound dated 09/11/2022 TECHNIQUE: 368 microcuries I-123 was administered orally in capsule form. Scintigraphic images of th e thyroid gland were obtained at 24 hours. Thyroid uptake was calculated by the technologist. FINDINGS: The thyroid uptake is 30.7% (normal 10-30%), with the right lobe measuring 26.3% uptake and the left 4.9%. The asymmetric increased uptake in the right thyroid appears to be located primarily at the lat eral mid to lower right thyroid which appears to correspond in location to the 2.8 cm TI RADS 4 right thyroid mass suggesting a hyperfunctioning nodule. IMPRESSION: 1. Markedly asymmetric thyroid scintigraphy with elevated 24-hour iodine uptake with the region of i ncreased activity appearing to localize to the region of a 2.8 cm likely hyperfunctioning TI RADS 4 t hyroid mass. Reviewed, dictated and finalized at location A. T METAL INSTALLER IMPRESSION: 1. Markedly asymmetric thyroid scintigraphy with elevated 24-hour iodine uptak e with the region of increased activity appearing to localize to the region of a 2.8 cm likely hyperfunctioning TI RADS 4 thyroid mass.
== END 2023-07-10 13:30 | disposition home or self-care (01) ==
LOC: ANHIMG 13:30
PROVIDERS: PCP Family Medicine Adolescent Medicine; Visit Provider Internal Medicine
DX: E04.2 Nontoxic multinodular goiter (principal); E05.20 Thyrotoxicosis with toxic multinodular goiter without thyrotoxic crisis or storm
CPT/HCPCS: 78014; A9516

== ENCOUNTER 2023-07-23 14:53 | Outpatient (CLI) | payer MEDICARE, OTHER, SELFPAY ==
--- NOTE | ~2023-07-23 | US_ITS ---
US thyroid INDICATION: Thyroid goiter TECHNIQUE: Real-time sonographic images of the thyroid gland were obtained. COMPARISON: Comparison to multiple prior studies sequentially, with oldest reviewed study dated 05/01. FINDINGS: The right thyroid lobe measures 5 x 3 x 2 cm. The left thyroid lobe measures 5 x 2 x 1.3 c m. Thyroid gland is diffusely heterogeneous containing multiple bilateral thyroid masses. Largest com plex hypoechoic mass of the right lobe measures 2.8 x 1.7 x 2.1 cm compared with 1.9 x 2.4 x 1.4 cm o n 05/20/2018. This mass is solid, hypoechoic, wider than tall, smoothly marginated without echogenic foci, TR 4. Also in the right lobe there is a slightly hyperechoic 2.3 x 1.7 x 1.7 cm mass with solid appearance, wider than tall, smoothly marginated with punctate echogenic foci, TR 5. This compared 1.8 x 1.1 x 1 .3 cm on 05/20/2018. There are multiple small subcentimeter hypoechoic masses of the left thyroid lob e, TR 4, without significant change from prior studies. IMPRESSION: 1. Enlarging dominant right thyroid masses. Ultrasound-guided fine-needle aspiration biopsies recomm ended. Reviewed, dictated and finalized at location L. ARCH ASST IMPRESSION: 1. Enlarging dominant right thyroid masses. Ultrasound-guided fine-needle aspi ration biopsies recommended.
== END 2023-07-23 14:54 | disposition home or self-care (01) ==
LOC: ANHIMG 14:55
PROVIDERS: PCP Family Medicine Adolescent Medicine; Visit Provider Internal Medicine
DX: E04.2 Nontoxic multinodular goiter (principal); E05.90 Thyrotoxicosis, unspecified without thyrotoxic crisis or storm
CPT/HCPCS: 76536

== ENCOUNTER 2023-08-25 16:38 | Emergency (ER) | payer MEDICARE, OTHER, SELFPAY ==
--- NOTE | ~2023-08-25 | XR_ITS ---
EXAMINATION: XR chest 2V Exam Date/Time: 08/25/2023 17:00 AOC AIRSPACE CONTROL OFFICER HISTORY: Chest pain, LEFT SIDED PAIN, IRREGULAR EKG AT [facility] OFFICE Comparison: 08/28/2022. RESULT: Lines, tubes, and devices: Cholecystectomy clips. Lungs and pleura: Clear. Cardiomediastinal silhouette: Stable. Other: No acute osseous or upper abdominal finding. IMPRESSION: No acute cardiopulmonary process. Reviewed, dictated and finalized at location K. AIRSPACE CONTROL OFFICER
--- NOTE | 2023-08-25 16:41 | ECG_ITS ---
Measurements Intervals [place] Rate: 72 P: 58 [place]: 138 QRS: 48 QRSD: 90 T: 36 QT: 382 QTc: 418 Interpretive Statements SINUS RHYTHM NORMAL ELECTROCARDIOGRAM COMPARED TO ECG 08/28/2022 15:19:18 HEART RATE INCREASED, NO OTHER DIFFERENCE Electronically Signed On 08-25-2023 18:40:30 CADMIUM PLATER by Kwadwo Teran M.D.
[2023-08-25 16:45] VITALS: BP 149/65; PULSE 75; RESP 16; TEMP 36.8; O2SAT 99
--- NOTE | 2023-08-25 16:52 | ED.CHESTPAIN ---
HPI - Chest Pain General Chief Complaint: Chest Pain <LATANYA Delacruz Last Filed: 08/25/23 17:04> Stated Complaint: Chest pain <LATANYA Delacruz Last Filed: 08/25/23 17:04> Time Seen by Provider: 08/25/23 16:50 <LATANYA Delacruz Last Filed: 08/25/23 17:04> Focused HPI: Patient is a 68 y/o female, with PMH of HLD, hyperthyroidism, who presents to the ED with c/o CP. Patient reports she has had intermittent pain in her mid sternal and left sided chest since Friday. She describes the pain as a deep ache and heaviness, extending into and down her left arm. Also reports intermittent tingling in her L hand. Pain is intermittent, no significant aggravating or alleviating factors, no worsening with exertion. She had a more severe episode of the chest pain this morning. She went to her primary care doctor's office this afternoon and was referred to the ED for further evaluation. She states she was told her EKG was abnormal in the office. Patient denies any current pain. Denies SOB, pain/swelling in BLE, cough, cold sx's, fevers. Denies Hx of HTN, DM. She is a former smoker. FHx of cardiac disease is brother (at age 38) and sister (72). GENERAL: Well-appearing, well-nourished, and in no acute distress. HEAD: Normocephalic, atraumatic. CHEST: Clear to auscultation. ?No respiratory distress. HEART: Regular rate and rhythm.? MSK: No lower extremity edema. No calf tenderness. NEURO: ?Alert and oriented x3. Patient screened in triage and initial orders placed.? ?Additional care and disposition to be based upon?diagnostic testing and treatment. <LATANYA Dleacruz Last Filed: 08/25/23 17:04> Source: patient <LATANYA Delacruz Last Filed: 08/25/23 17:04> Mode of arrival: ambulatory <LATANYA Delacruz Filed: 08/25/23 17:04> Limitations: no limitations <Bárbara Montgomery PA-C - Last Filed: 08/25/23 17:04> Related Data Home Medications: Home Medications Medication Instructions Recorded Confirmed calcium carbonate 600 mg calcium 600 mg PO BID 03/22/21 08/25/23 (1,500 mg) tablet (Calcium) golimumab 12.5 mg/mL intravenous See Rx Instructions .Route .COMPLEX 03/22/21 08/25/23 solution (Simponi ARIA) acetaminophen 650 mg 650 mg PO Q12H PRN Pain 05/10/22 08/25/23 tablet,extended release (Tylenol Arthritis Pain) diclofenac sodium 25 mg 25 mg PO BID 03/27/23 08/25/23 tablet,delayed release <LATANYA Delacruz Last Filed: 08/25/23 17:04> Allergies/Adverse Reactions: Allergies Allergy/AdvReac Type Severity Reaction Status Date / Time No Known Allergies Allergy Verified 08/25/23 16:07 <Bárbara Montgomery PA-C - Last Filed: 08/25/23 17:04> Review of Systems Review of Systems: All systems as dictated in HPI <LATANYA Dunlap Last Filed: 08/26/23 01:43> [facility] Past Medical History Medical History: Medical History Ankylosing spondylitis History of depression History of gastroesophageal reflux (GERD) Major depressive disorder, recurrent, mild Normal colonoscopy 04/19 [facility] Osteopenia Palpitations Thyrotoxicosis, unspecified without thyrotoxic crisis or storm <LATANYA Delacruz Last Filed: 08/25/23 17:04> Surgical History Surgical History: Surgical History History of cholecystectomy History of hysterectomy <LATANYA Delacruz Last Filed: 08/25/23 17:04> Family History Family History: Family History Sibling Family history of coronary artery disease Mother Family history of malignant neoplasm of breast in first degree relative Hypertension <Bárbara Montgomery PA-C - Last Filed: 08/25/23 17:04> Social History Social Histo
[2023-08-25 17:16] LABS: Basophils Absolute Auto 0.1 K/mm3 (0.0-0.1); Basophils Percent Auto 0.6 % (0.2-1.2); Eosinophils Absolute Auto 0.2 K/mm3 (0-0.3); Eosinophils Percent Auto 2.1 % (0-4.4); Hematocrit 36.3 % (37.0-47.0); Hemoglobin 11.5 g/dL (12.0-15.0); Immature Granulocyte Absolute 0.03 K/mm3 (0.00-0.031); Immature Granulocyte Percent A 0.3 % (0-0.5); Lymphocytes Absolute Auto 3.52 K/mm3 (0.9-3.2); Lymphocytes Percent Auto 32.4 % (18.3-44.2); Mean Corpuscular HGB Conc 31.7 g/dl (32-36); Mean Corpuscular Hemoglobin 30.3 pg (26-34); Mean Corpuscular Volume 95.8 fl (80-100); Mean Platelet Volume 10.3 fl (7.4-10.4); Monocytes Absolute Auto 0.8 K/mm3 (0.1-0.6); Monocytes Percent Auto 7.7 % (2.6-8.5); Neutrophils Absolute Auto 6.2 K/mm3 (1.3-6.7); Neutrophils Percent Auto 56.9 % (45.5-73.1); Platelet Count Result 255 k/mm3 (150-375); Red Blood Count 3.79 M/mm3 (4.2-5.4); Red Cell Distribution Width 13.2 % (11.5-14.5); White Blood Count 10.9 K/mm3 (4.5-10.0)
[2023-08-25 17:27] LABS: Alanine Aminotransferase 20 U/L (6-35); Albumin Level 3.6 g/dL (3.5-5.1); Alkaline Phosphatase 70 U/L (38-126); Anion Gap 7 mmol/L (8-16); Aspartate Amino Transferase 22 U/L (14-36); Bilirubin,Total 0.4 mg/dL (0.2-1.3); Blood Urea Nitrogen 24 mg/dL (7-17); Calcium 8.4 mg/dL (8.4-10.2); Carbon Dioxide 23 mmol/L (22-30); Chloride 107 mmol/L (98-107); Estimated CRCL calculation 43 ml/min; Estimated Glomerular Filt Rate > 60; Glucose 102 mg/dL (65-110); Lipase 94 U/L (23-300); Magnesium 2.2 mg/dL (1.6-2.3); Potassium 4.1 mmol/L (3.4-5.0); Sodium 137 mmol/L (137-145)
[2023-08-25 17:30] LABS: Partial Thromboplastin Time 28.7 SECONDS (22.3-36.8)
[2023-08-25 17:41] LABS: Troponin I < 0.012 ng/mL (0.000-0.034)
[2023-08-25 18:00] LABS: Thyroid Stimulating Hormone < 0.015 uIU/mL (0.465-4.680)
--- NOTE | 2023-08-25 20:01 | ECG_ITS ---
Measurements Intervals [place] Rate: 64 P: 58 [place]: 149 QRS: 36 QRSD: 105 T: 36 QT: 415 QTc: 430 Interpretive Statements SINUS RHYTHM COMPARED TO ECG 08/25/2023 16:46:49 NO SIGNIFICANT CHANGES Electronically Signed On 08-26-2023 12:25:32 CRECHE ATTENDANT by Joana Barnett M.D.
[2023-08-25 20:20] LABS: D Dimer 0.34 ug/mL (<0.48)
[2023-08-25 20:24] LABS: Troponin I < 0.012 ng/mL (0.000-0.034)
[2023-08-25 20:36] VITALS: BP 129/70; PULSE 94; RESP 18; O2SAT 100
== END 2023-08-25 20:46 | disposition home or self-care (01) ==
PROVIDERS: Emergency Medicine; Emergency Provider Physician Assistant; PCP Family Medicine Adolescent Medicine
DX: R07.89 Other chest pain (principal); E78.5 Hyperlipidemia, unspecified; I10 Essential (primary) hypertension; E11.9 Type 2 diabetes mellitus without complications; Z79.899 Other long term (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; Z87.891 Personal history of nicotine dependence
CPT/HCPCS: 36415; 71046; 80053; 83690; 83735; 84443; 84484; 85025; 85380; 85610; 85730; 93005; 99284

== ENCOUNTER 2023-09-12 12:29 | Outpatient (CLI) | payer MEDICARE, OTHER, SELFPAY ==
--- NOTE | ~2023-09-12 | US_ITS ---
EXAMINATION: 1. US FNA additional 2. US FNA w image guidance DATE: 09/12/2023 13:40 INDICATION: Multinodular goiter. TECHNIQUE: The procedure and its benefits and risks were discussed with the patient. Risks specifically discusse d included bleeding. The patient verbalized understanding of the risks and agreed to proceed. The nec k was prepped and draped in the usual sterile manner. 1% lidocaine was used for local anesthesia. 7 passes were made with a 25G needle into the lesion in lateral right thyroid lobe under ultrasound gu idance. 7 passes were made with a 25-gauge needle into the lesion in medial right thyroid lobe under ultrasou nd guidance. There were no immediate complications. FINDINGS: Grayscale ultrasound images demonstrate needles advanced into a 2.3 cm nodule in lateral right thyroi d lobe for biopsy. Grayscale ultrasound images demonstrate needles advanced into a 2.8 cm nodule in m edial right thyroid lobe for biopsy. IMPRESSION: 1. Ultrasound-guided fine needle aspiration of a nodule in lateral right thyroid lobe. 2. Ultrasound-guided fine needle aspiration of a nodule in medial right thyroid lobe. Reviewed, dictated and finalized at location A. IMPRESSION: 1. Ultrasound-guided fine needle aspiration of a nodule in lateral right thyro id lobe. 2. Ultrasound-guided fine needle aspiration of a nodule in medial right thyroid lobe.
== END 2023-09-12 12:30 | disposition home or self-care (01) ==
LOC: ANHIMG 12:29
PROVIDERS: PCP Family Medicine Adolescent Medicine; Visit Provider Internal Medicine
DX: E04.2 Nontoxic multinodular goiter (principal)
CPT/HCPCS: 10005; 10006; 88172; 88173; 88305

== ENCOUNTER 2023-12-12 14:47 | Outpatient (CLI) | payer MEDICARE, OTHER, SELFPAY ==
--- NOTE | ~2023-12-12 | MM_ITS ---
EXAMINATION: MM screening sahil BI w nicky HISTORY: Screening TECHNIQUE: Craniocaudal and mediolateral oblique 3-D tomosynthesis images were obtained and synthetic 2-D images were generated. CAD analysis was submitted and interpreted. COMPARISON: Comparison to multiple prior studies sequentially, with oldest reviewed study dated 03/30. BREAST PARENCHYMAL COMPOSITION: Not dense: There are scattered areas of fibroglandular density. FINDINGS: There is no evidence of suspicious mass, calcification, or architectural distortion to sugg est malignancy in either breast. There has been no suspicious interval change. IMPRESSION: 1. No mammographic evidence of malignancy. 2. Recommend routine screening mammography in one year. BI-RADS Category 1: Negative Reviewed, dictated and finalized at location B.
== END 2023-12-12 14:48 ==
LOC: MICIMG 14:48
PROVIDERS: PCP Obstetrics & Gynecology; Visit Provider Family Medicine Adolescent Medicine
DX: Z12.31 Encounter for screening mammogram for malignant neoplasm of breast (principal)
CPT/HCPCS: 77063; 77067

== ENCOUNTER 2024-02-06 13:43 | Outpatient (CLI) | payer MEDICARE, OTHER, SELFPAY ==
--- NOTE | ~2024-02-06 | MR_ITS ---
EXAMINATION: MR pituitary wo/w con DATE: 02/06/2024 14:39 INDICATION: Abnormal results of thyroid function studies. TECHNIQUE: Magnetic resonance imaging (MRI) of the brain and brainstem was performed without and with 12 mL MultiHance intravenous contrast. COMPARISON: None. FINDINGS: The pituitary is normal in size with height of 6 mm and concave superior margin. There is n o intracranial hemorrhage, acute infarction, or abnormal intracranial mass lesion. The ventricles are normal in size. The paranasal sinuses are clear. There are likely changes of ocular lens replacement surgeries. The mastoid air cells are normal. IMPRESSION: 1. Normal brain. Normal pituitary. Reviewed, dictated and finalized at location A.
--- NOTE | ~2024-02-06 | US_ITS ---
EXAMINATION: US thyroid DATE: 02/06/2024 14:54 INDICATION: Multinodular goiter. TECHNIQUE: Multiple ultrasound images of the thyroid were obtained. COMPARISON: Ultrasound 07/23/2023, 09/12/23, 06/05/18 FINDINGS: The right thyroid lobe measures 5.1 x 3.2 x 2.8 cm. The left thyroid lobe measures 3.8 x 1.7 x 1.3 c m. In the right thyroid lobe, there is a 2.8 cm predominantly solid, hypoechoic, wider than tall nod ule with smooth margin without echogenic foci (TI-RADS TR4), stable from 09/12/23 when biopsy was courtney gn. In the right thyroid lobe, there is a 2.0 cm predominantly solid, hypoechoic, wider than tall nod ule with smooth margin and punctate echogenic foci (TR5), stable from 09/12/23 when biopsy was benign. In the left thyroid lobe, there is a 10 mm solid, hypoechoic, wider than tall nodule with smooth mar gin and punctate echogenic foci (TR5), stable from 06/05/18 when biopsy was benign. There are multiple subcentimeter nodules in the thyroid. IMPRESSION: 1. Multinodular goiter, likely not clinically significant. No follow-up is needed. Reviewed, dictated and finalized at location A. IMPRESSION: 1. Multinodular goiter, likely not clinically significant. No follow-up is need ed.
== END 2024-02-06 13:44 ==
PROVIDERS: PCP Family Medicine Adolescent Medicine; Visit Provider Internal Medicine
DX: E04.2 Nontoxic multinodular goiter (principal); E05.10 Thyrotoxicosis with toxic single thyroid nodule without thyrotoxic crisis or storm; E05.90 Thyrotoxicosis, unspecified without thyrotoxic crisis or storm; M85.80 Other specified disorders of bone density and structure, unspecified site; R94.6 Abnormal results of thyroid function studies
CPT/HCPCS: 70553; 76536; A9577

== ENCOUNTER 2024-05-13 09:06 | Outpatient (CLI) | payer MEDICARE, OTHER, SELFPAY ==
--- NOTE | ~2024-05-13 | DEXA_ITS ---
Bone Density Report Name: VIJAYA KOEHLER Age: 68 Sex: Female Ethnicity: White Date of : 1955 Indication: hyperparathyroidism; height loss; inflammatory bowel disease; hysterectomy; Referring Provider: OZIEL LOPES Study: Bone densitometry was performed. Exam Date: May 13, 2024 Accession number: [id number] Bone Density: Region BMD T-score Z-score Classification AP Spine(L1-L4) 1.016 -0.3 1.7 Normal Femoral Neck (Left) 0.710 -1.2 0.5 Osteopenia Total Hip (Left) 0.854 -0.7 0.7 Normal Femoral Neck (Right) 0.675 -1.6 0.2 Osteopenia Total Hip (Right) 0.858 -0.7 0.7 Normal Total Hip Mean 0.856 -0.7 0.7 Normal World Health Organization criteria for BMD impression classify patients as: Normal (T-score at or above -1.0), Osteopenia (T-score between -1.0 and -2.5), or Osteoporosis (T-score at or below -2.5). 10-year Fracture Risk(1): Major Osteoporotic Fracture 9.6% Hip Fracture 1.3% Reported Risk Factors: [place] (), Neck BMD=0.675, BMI=24.0 (1) FRAX(R) Version 3.08. Fracture probability calculated for an untreated patient. Fracture probability may be lower if the patient has received treatment. Clinical Information Provided by Patient: Has used the following medications: HRT (i.e. estrogen/hormone therapy), Vitamin D, Calcium Has the following medical conditions: Inflammatory bowel diseases, Hyperparathyroidism, Hysterectomy Patient maximum height was 64.5 Menopause Age: 43 Drinks caffeinated beverages Onset of menses at age 12 Number of children 2 Impression: The patient has low bone mass, based on the Right Femoral Neck T-score. The patient has an estimated ten-year risk of hip fracture of 1.3% and an estimated ten-year risk of major fracture of 9.6%, based on the WHO FRAX algorithm. Discussion: BONE DENSITY IS LOW AT ONE OR MORE SKELETAL SITES. This patient's lowest T-score is low at one or more skeletal sites. It meets the World Health Organization's (WHO) criteria for ?low bone mass? (T-score between -1.0 and -2.5). The patient's 10-year risk of fracture as calculated by FRAX is less than the threshold where pharmacological therapy is recommended by the National Osteoporosis Foundation (NOF). However, all treatment decisions require clinical judgment and consideration of individual patient factors, including patient preferences, comorbidities, previous drug use, risk factors not captured in the FRAX model (e.g., frailty, falls, vitamin D deficiency, increased bone turnover, interval significant decline in bone density) and possible under or overestimation of fracture risk by FRAX. The patient should follow a healthful lifestyle (good nutrition with adequate calcium and vitamin D, and appropriate weight-bearing exercise). Follow-Up: Consider repeating this study in 2 to 3 years to reassess this patient's status, or sooner if there is some new clinical indication. Reported by: CARMELLA on 05/13/2024 9:58:00 AM. Reviewed, dictated and finalized at location ABoby MORSE
== END 2024-05-13 09:07 | disposition home or self-care (01) ==
PROVIDERS: PCP Family Medicine Adolescent Medicine; Visit Provider Obstetrics & Gynecology
DX: M85.852 Other specified disorders of bone density and structure, left thigh (principal); M85.851 Other specified disorders of bone density and structure, right thigh; Z78.0 Asymptomatic menopausal state
CPT/HCPCS: 77080

== ENCOUNTER 2024-07-30 09:41 | Outpatient (CLI) | payer MEDICARE, OTHER, SELFPAY ==
--- NOTE | 2024-07-30 09:50 | ECHO_ITS ---
Patient Info Name: Vilma Carlisle Age: 68 years : 1955 Gender: Female Ht: 63 in Wt: 137 lbs BSA: 1.67 m2 HR: 61 bpm BP: 132 / 69 mmHg Technical Quality: Fair Exam Date: 07/30/2024 9:59 AM Exam Location: Echo Lab Patient Status: Outpatient Admit Date: 07/30/2024 Staff Ordering Physician: Nishant Meehan MD Applied Psychology Professor: Tona Jerome RDCS Attending Provider: Nishant Meehan MD Referring Physician: Shefali MEEHAN; Exam Type: CA echo doppler color flow Study Info Indications - PALPITATIONS - TACHYCARDIA Complete two-dimensional, color flow and Doppler transthoracic echocardiogram is performed. Summary 1. Complete two-dimensional, color flow and Doppler transthoracic echocardiogram is performed. 2. Left ventricular chamber dimension is normal. 3. Left ventricular systolic function is normal, estimated at 65-70%. 4. The left ventricular diastolic function is grade I diastolic dysfunction. 5. E/e' 8 is minimally elevated. 6. Left atrial chamber dimension is mildly enlarged. 7. There is mild aortic valve sclerosis. 8. There is trace mitral valve regurgitation. Left Ventricle E/e' 8 is minimally elevated. Left ventricular chamber dimension is normal. Left ventricular systolic function is normal, estimated at 65-70%. The left ventricular diastolic function is grade I diastolic dysfunction. Right Ventricle Right ventricular systolic function is normal and with normal TAPSE 2.5 cm. Right ventricular chamber dimension is normal. Left Atria Left atrial chamber dimension is mildly enlarged. Right Atria Right atrial chamber dimension is normal. Aortic Valve The aortic valve is trileaflet. There is mild aortic valve sclerosis. There is no aortic valve stenosis. There is no aortic valve regurgitation. Pulmonic Valve There is no pulmonic regurgitation. Mitral Valve There is no mitral valve stenosis. There is trace mitral valve regurgitation. Tricuspid Valve There is no tricuspid valve regurgitation. Pericardium/Pleural There is no pericardial effusion. Inferior Vena Cava Normal inferior vena cava with >50% collapse upon inspiration consistent with normal right atrial pressure, 5 mmHg. Aorta The aortic root size at the sinus of Valsalva is normal. Left Ventricular Outflow Tract Name Value Normal LVOT 2D LVOT Diameter 1.9 cm LVOT Doppler LVOT Peak Gradient 7 mmHg LVOT Mean Gradient 4 mmHg LVOT VTI 30 cm LVOT VTI/AV VTI Ratio 0.7 LVOT Stroke Volume 80 ml LVOT CO 4.6 l/min LVOT CI 2.8 l/min/m2 Pulmonic Valve Name Value Normal RVOT Doppler RVOT Peak Gradient 3 mmHg PV Doppler PV Peak Gradient 4 mmHg Mitral Valve Name Value Normal MV Doppler MV Peak Gradient 7 mmHg MV Mean Gradient 2 mmHg MV Decel [place] 400 cm/s2 MV PHT 53 ms MV Area (PHT) 4.2 cm2 4.0-5.0 MV Area (Cont Eq VTI) 2.0 cm2 MV Diastolic Function MV E Peak Velocity 73 cm/s MV A Peak Velocity 111 cm/s MV E/A 0.7 MV Decel Time 182 ms MV Annular TDI MV E/e' (Septal) 8.0 <=8.0 MV E/e' (Lateral) 8.6 <=8.0 MV E/e' (Average) 8.3 Tricuspid Valve Name Value Normal Estimated PAP/RSVP RA Pressure 5 mmHg <=5 Aorta Name Value Normal Ascending Aorta Ao Root Diameter (MM) 2.8 cm Ao Root Diam Index (MM) 1.7 cm/m2 Aortic Valve Name Value Normal AV Doppler AV Peak Velocity 155 cm/s AV Peak Gradient 10 mmHg AV Mean Gradient 5 mmHg AV VTI 41 cm AV Area (Cont Eq VTI) 2.0 cm2 >=3.0 AV Area (Cont Eq Nicanor) 2.3 cm2 AV Regurgitation 2D LVOT Area 2.7 cm2 Ventricles Name Value Normal LV Dimensions 2D/MM IVS Diastolic Thickness (2D) 0.9 cm 0.6-1.0 LVID Diastole (2D) 4.3 cm 3.8-5.2 LVIW Diastolic Thickness (2D) 1.1 cm 0.6-0.9 LVID Systole (2D) 2.6 cm 2.2-3.5 LVOT Diameter 1.9 cm LV Mass (2D Cubed) 136.39 g 67.00-162.00 LV Mass Index (2D Cubed) 82 g/m2 43-95 Relative Wall Thickness (2D) 0.52 LV Fractional Shortening/Ejection Fraction 2D/MM LV Fractional Shortening (2D) 39 % 27-45 LV EF (2D Teicholz) 69 % 54-74 LV Diastolic Volume (4C MOD) 77 ml LV EF (4C MOD) 63 % LV Diastolic Volume (2C MOD) 55 ml LV EF (2C MOD) 70 % LV Diastolic Volume (BP MOD) 65 ml 46-106 LV Diastolic Volume Index (BP MOD) 39 ml/m2 29-61 LV Systolic Volume (BP MOD) 22 ml 14-42 LV Systolic Volume Index (BP MOD) 13 ml/m2 8-24 LV EF (BP MOD) 67 % 54-74 LV Diastolic Length (4C) 7.4 cm LV Systolic Length (4C) 5.7 cm LV Stroke Volume (4C MOD) 48 ml Atria Name Value Normal LA Dimensions LA Dimension (MM) 3.6 cm 2.7-3.8 LA Volume (4C A-L) 54 ml LA Volume (BP A-L) 53 ml RA Dimensions RA Area (4C) 10.1 cm2 <=18.0 Report Signatures
--- OUTSIDE RECORDS SUMMARY | 2024-07-30 09:56 | XMS_ITS | Clinical Summary ---
Author Organization [facility] Address [address] [place] [address] Care Team Providers Care Leaflet Or Newspaper Deliverer Name Role Phone Nishant Meehan MD Primary Care Provider + Source Comments [facility],non-[facility] Affiliates and Associated Physician Practices is amultiple site organization consisting of ambulatory clinics and hospital sitesin [place], [place], [place] and [place]. This disclosure is being madepursuant to the Care Everywhere program and may not contain all information available regarding this patient. Last updated 18.[facility] Social History Tobacco Use Types Packs/Day Years Used Date Smoking Tobacco: Never Assessed Sex and Gender Information Value Date Recorded Sex Assigned at Not on file Gender Identity Not on file Sexual Orientation Not on file Plan of Treatment Upcoming Encounters Date Type Department Care Team (Late st Contact Info) Description 07/30/2024 2:00 PM SUPERVISOR GLUING Office Visit [facility] - ENT [address] [place] [phone] Gary Carolina MD [address] [place] [address] [place] [address] Health Maintenance Due Date Last Done Comments BONE DENSITY TESTING 1955 COLOGUARD (AGES 45-75) - COL ON CA SCREENING 1955 COLON MONITORING 1955 COLONOSCOPY - COLON CA SCREENING 1955 CT COLONOGRAPHY - COLON CA SCREENING 1955 Colorectal Cancer Screening 1955 FIT - COLON CA SCREENING 1955 FLEX SIG - COLON CA SCREENING 1955 LIPID TESTING 1955 MAMMOGRAM 1955 MEDICARE AWV ? 12 MONTHS 1955 HEPATITIS C SCREENING 08/02/1973 DTAP/TDAP/TD VACCINES (1 - Tdap) 1974 PNEUMOCOCCAL VACCINE 50+ (1 of 1 - PCV) 2005 ZOSTER VACCINE (1 of 2) 2005 COVID-19 VACCINE (1 - 2023-2 5 season) 2024 INFLUENZA VACCINE (#1) 2024 DEPRESSION SCREENING 06/30/2024 Respiratory Syncytial Virus (RSV) Vaccine Pt: or over 60 yrs (1 - 1-dose 75+ series) 2030 HEPATITIS B VACCINE Aged Out No longe r eligible based on patient's age to complete this topic HIB VACCINE Aged Out No longer eligi ble based on patient's age to complete this topic HPV VACCINE Aged Out No longer eligi ble based on patient's age to complete this topic MENINGOCOCCAL (Group B) VACCINE Aged Out No longer eligible based on patient's age to complete this topic MENINGOCOCCAL VACCINE Aged Out No keeley vanesa eligible based on patient's age to complete this topic Care Teams Leaflet Or Newspaper Deliverer Relationship Specialty Start Date End Date Nishant Meehan MD [address] [address] [facility] - General 10/20/15
--- OUTSIDE RECORDS SUMMARY | 2024-07-30 09:56 | XMS_ITS | Referral Summary ---
Author Organization [facility] Address [address] [place] [address] Care Team Providers Care Swing Tender Name Role Phone Nishant Meehan MD Primary Care Provider + Source Comments [facility],non-owned Affiliates and Associated Physician Practices is amultiple site organization consisting of ambulatory clinics and hospital sitesin [place], [place], [place] and [place]. This disclosure is being madepursuant to the Care Everywhere program and may not contain all information available regarding this patient. Last updated 18.[facility] [employer] Social History Tobacco Use Types Packs/Day Years Used Date Smoking Tobacco: Never Assessed Sex and Gender Information Value Date Recorded Sex Assigned at Not on file Gender Identity Not on file Sexual Orientation Not on file Plan of Treatment Upcoming Encounters Date Type Department Care Team (Late st Contact Info) Description 07/30/2024 2:00 PM INVASIVE CARDIOLOGIST Office Visit [facility] - ENT [address] [place] [phone] Gary Carolina MD [address] [place] [address] [place] [address] Care Teams Swing Tender Relationship Specialty Start Date End Date Nishant Meehan MD [address] [address] PCP - General 10/20/15
--- OUTSIDE RECORDS SUMMARY | 2024-07-30 09:56 | XMS_ITS | Clinical Summary ---
Author Organization [facility] Address [address] [place] [address] Care Team Providers Care [employer] Salesperson Name Role Phone Nishant Meehan MD Primary Care Prov ider Missy Rdz MD Unavailable [phone] Ryan Ghosh MD Unavailable [phone] Allergies No known active allergies Medications zolpidem (AMBIEN) 10 mg tabletIndication s:Sleep-Onset Insomnia Take 1 tablet (10 mg total) by mouth nightly as needed for sleep Active estradiol (ESTRACE) 1 mg tablet Take 1 tablet (1 mg total) by mouth daily Active methIMAzole (TAPAZOLE) 10 mg tablet Take 1 tablet (10 mg total) by mouth 2 (two) times a day Active escitalopram (LEXAPRO) 20 mg tablet Take 1 tablet (20 mg total) by mouth every morning Active calcium carbonate/vitami n D3 (CALCIUM 600 + D,3, ORAL) Take 2 capsules by mouth daily. Active atorvastatin (LIPITOR) 20 mg tablet Take 1 tablet (20 mg total) by mouth daily Active fluticasone propionate (FLONASE) 50 mcg/actuation nasal spray 3 Active nabumetone (RELAFEN) 750 mg tablet TAKE 1 TABLET (750 MG) BY ORAL ROUTE 2 TIMES PER DAY NEEDED 3 Active omeprazole (PriLOSEC) 20 mg capsule Take by mouth daily Active benzonatate (TESSALON) 200 mg capsuleIndicatio ns:Acute non-recurrent pansinusitis Take 1 capsule (200 mg total) by mouth 3 (three) times a day as needed for cough 30 capsule 4 Active Additional Information Patient not taking.Reported on 07/06/2024 acetaminophen ER (Tylenol Arthritis Pain) 650 mg 8 hr tablet take 2 tablets (1,300 mg) by oral route every 8 hours swallowing whole with water. Do not break, crush, dissolve and/or chew. 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 Overview (10/03/2016): CHR LYMPHOCYT THYROIDIT Encounters Date Type Department Care Team Description 07/29/2024 2:04 PM APPLICATIONS CHEMIST - 07/29/2024 11:59 PM APPLICATIONS CHEMIST Hospital Encounter [id number] [place] [phone] Discharge Disposition: Discharge to home or self care 07/06/2024 2:00 PM APPLICATIONS CHEMIST Consult [facility] 2 Radiation Oncology [address] [place] [address] Missy Rdz MD Hyperthyroidism (Primary Dx); 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 06/11/2024 Telephone [facility] 2 Radiation Oncology [address] [place] [address] Radha Cole MA from Last 3 Months Surgical History Surgery Date Site/Laterality Comments CHOLECYSTECTOMY 06/30/2009 - 06/29/2010 DILATION AND CURETTAGE, DIAG NOSTIC / THERAPEUTIC LUMBAR LAMINECTOMY x2 HYSTERECTOMY BUNIONECTOMY Bilateral GANGLION CYST EXCISION Left wrist TONSILLECTOMY BLADDER SUSPENSION Medical History Medical History Date Comments Spinal stenosis of lumbar region Osteopenia Hyperthyroidism pain in neck fro m nodule bx friday06/05/18 IBS (irritable bowel syndrome) Osteoarthritis Postmenopausal GERD (gastroesophageal reflux disease) Anxiety and depression Family History Medical History Relation Name Comments Heart attack Brother Heart attack Father Cancer Mother's Sister Leukemia Sister Relation Name Status Comments Brother Father Mother's Sister Sister Alive Social History Tobacco Use Types Packs/Day Years Used Date Smoking Tobacco: Former Cigarettes 1 41 1 2019 Smokeless Tobacco: Never Chew Tobacco Cessation:Counseling Given: Not Answered Alcohol Use Standard Drinks/Week Comments Yes 1 (1 standard drink = 0.6 oz pur e alcohol) AUDIT-C Answer Date Recorded Q1: How often do you have a drink containing alc ohol? 2-4 times a month 07/06/2024 Average Number of Drinks Not on file 025 Frequency of Binge Drinking Not on file 12/2024 Comments No Sex and Gender Information Value Date Recorded Sex Assigned at Not on file Legal Sex Female 11:32 PM APPLICATIONS CHEMIST Gender Identity Not on file Sexual Orientation Not on file Obstetrics History Last Filed Vital Signs Vital Sign Reading Time Taken Comments Blood Pressure 115/81 07/06/2024 2:05 PM APPLICATIONS CHEMIST Pulse 62 07/06/2024 2:05 PM APPLICATIONS CHEMIST Temperature 36.8 ??C (98.3 ??F) 11/10/2023 11:36 AM C DT Respiratory Rate 18 11/10/2023 11:36 AM CDT Oxygen Saturation 99% 07/06/2024 2:05 PM APPLICATIONS CHEMIST Inhaled Oxygen Concentration - - Weight 64.5 kg (142 lb 3.2 oz) 07/06/2024 2:05 P M APPLICATIONS CHEMIST Height 160 cm (5' 2.99 ) 11/10/2023 11:36 AM CDT Body Mass Index 25.2 11/10/2023 11:36 AM CDT Plan of Treatment Health Maintenance Due Date Last Done Comments Breast Cancer Screening-Mammogram 1955 Colon Cancer Screening-Colonoscopy 1955 Depression Screening 1955 Hepatitis C Screening 1955 Osteoporosis Screening-Bone Density Scan 1955 DTaP/Tdap/Td Vaccine (1 - Tdap) 1966 Hepatitis B Screening 1973 Lung Cancer Screening 2005 Zoster Vaccine (1 of 2) 2005 Pneumococcal vaccine 65+ (1 of 1 - PCV) 2020 Well Visit 65+ 2020 Covid-19 Vaccine (6 - 2023-2 5 season) 2024 03/06/2022, 10/02/2021, 02/15/2021, Additional history exists Influenza Vaccine (#1) 2024 , 03/27/2021, 02/28/2020, Additional history exists Fall Risk Assessment 07/06/2025 07/06/2024 Procedures Procedure Name Priority Date/Time Associated Diagnosis Comments EGFR Routine 07/29/2024 10:12 AM APPLICATIONS CHEMIST DIFFERENTIAL AUTO Routine 07/29/2024 10: 12 AM APPLICATIONS CHEMIST HEPATIC FUNCTION PANEL Routine 07/29/2024 10:12 AM APPLICATIONS CHEMIST CREATININE Routine 07/29/2024 10:12 AM APPLICATIONS CHEMIST CBC WITH AUTO DIFFERENTIAL Routine 07/29/2024 10:12 AM APPLICATIONS CHEMIST from Last 3 Months Results * eGFR (07/29/2024 10:12 AM APPLICATIONS CHEMIST) eGFR 79 >=60 mL/min/1. 73 m2 Comment: Interpretive Data Reference Interval Normal ?>/= 90 mL/min/1.73m2 Mildly decreased* ? 60 - 89 mL/min/1.73m2 Mildly to moderately decreased ?45 - 59 mL/min/1.73m2 Moderately to severely decreased ??30 - 44 mL/min/1.73m2 Severely decreased ?15 - 29 mL/min/1.73m2 Kidney Failure ?< 15 ??mL/min/1.73m2 *Relative to young adult level Estimated glomerular filtration rate is determined by the 2020 CKD-EPI equation recommended by the National Kidney Foundation (A Unifying Approach to GFR Estimation: Recommendations of the NKF-ASK Task Force on Reassessing the Inclusion of Race in Diagnosing Kidney Disease, JASN 2020). The CKD-EPI equation should not be used for patients with unstable renal function and has not been validated in children and those over 70. Current interpretive data was last reviewed 2021. Blood 07/29/2024 10:1 2 AM APPLICATIONS CHEMIST 07/29/2024 6:41 PM APPLICATIONS CHEMIST us Sterling Sandoval MD LAB BLOOD ORDERABLES Fin al Result [facility] [address] Department [place] [address] * Differential, auto (07/29/2024 10:12 AM APPLICATIONS CHEMIST) Neutrophil abs 3.9 1.5 - 6.5 K/cumm Imm gran abs 0.0 0.0 - 0.1 K/cumm [facility] Lymphocyte abs 2.8 0.8 - 3.3 K/cumm [facility] Monocyte abs 0.7 0.2 - 0.8 K/cumm [facility] Eosinophil abs 0.2 0.0 - 0.5 K/cumm [facility] Basophil abs 0.1 0.0 - 0.1 K/cumm [facility] Neutrophil pct 50.4 % [facility] Comment: Interpretive Data Percent cell count reference ranges are not reported, since discordance with absolute values may lead to misinterpretation of CBC data. Current Interpretive Data was last revised on 2017. Imm gran pct 0.3 % [facility] Comment: Interpretive Data Percent cell count reference ranges are not reported, since discordance with absolute values may lead to misinterpretation of CBC data. Current Interpretive Data was last revised on 2017. Lymphocyte pct 36.8 % [facility] Comment: Interpretive Data Percent cell count reference ranges are not reported, since discordance with absolute values may lead to misinterpretation of CBC data. Current Interpretive Data was last revised on 2017. Monocyte pct 9.5 % [facility] Comment: Interpretive Data Percent cell count reference ranges are not reported, since discordance with absolute values may lead to misinterpretation of CBC data. Current Interpretive Data was last revised on 2017. Eosinophil pct 2.2 % [facility] Comment: Interpretive Data Percent cell count reference ranges are not reported, since discordance with absolute values may lead to misinterpretation of CBC data. Current Interpretive Data was last revised on 2017. Basophil pct 0.8 % [facility] Comment: Interpretive Data Percent cell count reference ranges are not reported, since discordance with absolute values may lead to misinterpretation of CBC data. Current Interpretive Data was last revised on 2017. Blood 07/29/2024 10:1 2 AM APPLICATIONS CHEMIST 07/29/2024 4:08 PM APPLICATIONS CHEMIST us Sterling Sandoval MD LAB BLOOD ORDERABLES Fin al Result [facility] [address] Department [place] [address] * (ABNORMAL) CBC with auto differential (07/29/2024 10:12 AM APPLICATIONS CHEMIST) WBC 7.7 3.8 - 9.9 K/cumm Hgb 12.0 11.9 - 15.5 g/dL [facility] Hct 39.6 35.6 - 45.5 % [facility] Plt 288 150 - 400 K/cumm [facility] MPV 11.1 9.1 - 12.3 fL [facility] RBC 4.08 3.90 - 5.20 M/cumm [facility] MCV 97.1(H) 81.3 - 96.4 fL [facility] MCH 29.4 27.1 - 33.3 pg [facility] MCHC 30.3(L) 32.3 - 35.7 g/dL [facility] RDW CV 14.2 11.1 - 14.9 % [facility] RDW SD 50.5(H) 35.7 - 48.1 fL [facility] NRBC abs 0.00 0.00 - 0.01 K/cumm [facility] Blood 07/29/2024 10:1 2 AM APPLICATIONS CHEMIST 07/29/2024 4:08 PM APPLICATIONS CHEMIST Sterling Sandoval MD LAB BLOOD ORDERABLES Fin al Result Performing Organization Address City/[facility] Co de Phone Number [facility] [address] [facility] [place] [address] * Creatinine (07/29/2024 10:12 AM APPLICATIONS CHEMIST) Creatinine 0.81 0.60 - 1.10 mg/dL Blood 07/29/2024 10:1 2 AM APPLICATIONS CHEMIST 07/29/2024 4:11 PM APPLICATIONS CHEMIST Sterling Sandoval MD LAB BLOOD ORDERABLES Fin al Result Performing Organization Address [facility] de Phone Number [facility] [address] [facility] [place] [address] * Hepatic function panel (07/29/2024 10:12 AM APPLICATIONS CHEMIST) Bilirubin, total 0.4 0.1 - 1.2 mg/dL Bilirubin, direct <0.2 0.1 - 0.3 mg/dL [facility] Protein, pl 6.7 6.5 - 8.5 g/dL [facility] Albumin 4.0 3.5 - 5.0 g/dL [facility] Alk phos 74 40 - 130 Units/L [facility] ALT 16 7 - 45 Units/L [facility] AST 16 10 - 45 Units/L [facility] Blood 07/29/2024 10:1 2 AM APPLICATIONS CHEMIST 07/29/2024 4:11 PM APPLICATIONS CHEMIST Sterling Sandoval MD LAB BLOOD ORDERABLES Fin al Result [facility] [address] Department [place] [address] from Last 3 Months Insurance [facility] MEDICARE [facility] Care Teams [employer] Salesperson Relationship Specialty Start Date End Date Nishant Meehan MD [address] [place] [address] PCP - General Family Medicine 02/20/23 [place] [address] [place] [address] Radiation Oncologist Radiation Oncology 06/21/24 Ryan Ghosh MD [address] [address] Consulting Physician Internal Medicine 06/21/24
--- OUTSIDE RECORDS SUMMARY | 2024-07-30 09:56 | XMS_ITS | Referral Summary ---
Author Organization [facility] Address [address] [place] [phone] Care Team Providers Care Dairy Frozen Manager Name Role Phone Nishant Meehan MD Primary Care Prov ider Missy Rdz MD Unavailable [phone] Ryan Ghosh MD Unavailable [phone] Encounters Date Type Department Care Team Description 07/29/2024 2:04 PM TIRE TRIMMER HAND - 07/29/2024 11:59 PM TIRE TRIMMER HAND Hospital Encounter [facility] [address] [place] [address] Discharge Disposition: Discharge to home or self care 07/06/2024 2:00 PM TIRE TRIMMER HAND Consult [facility] Building 2 Radiation Oncology [address] [place] [address] Missy Rdz MD Hyperthyroidism (Primary Dx); 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 06/11/2024 Telephone [facility] 2 Radiation Oncology [address] [place] [address] Radha Cole MA from Last 3 Months Allergies No known active allergies Medications zolpidem [...] thyroiditis 10/21/2010 Overview (10/03/2016): CHR LYMPHOCYT THYROIDIT Social History Tobacco Use Types Packs/Day Years Used Date Smoking Tobacco: Former Cigarettes 1 41 1 979 - 2019 Smokeless Tobacco: Never Chew Tobacco Cessation:Counseling [...] on file Legal Sex Female 11:32 PM TIRE TRIMMER HAND Gender Identity Not on file Sexual Orientation Not on file Last Filed Vital Signs Vital Sign Reading Time Taken Comments Blood Pressure 115/81 07/06/2024 2:05 PM TIRE TRIMMER HAND Pulse 62 07/06/2024 2:05 PM TIRE TRIMMER HAND Temperature 36.8 ??C (98.3 ??F) 11/10/2023 11:36 AM C DT Respiratory Rate 18 11/10/2023 11:36 AM CDT Oxygen Saturation 99% 07/06/2024 2:05 PM TIRE TRIMMER HAND Inhaled Oxygen Concentration - - Weight 64.5 kg (142 lb 3.2 oz) 07/06/2024 2:05 P M TIRE TRIMMER HAND Height 160 cm (5' 2.99 ) 11/10/2023 11:36 AM CDT Body Mass Index 25.2 11/10/2023 11:36 AM CDT Plan of Treatment Not on file Procedures Procedure Name Priority Date/Time Associated Diagnosis Comments EGFR Routine 07/29/2024 10:12 AM TIRE TRIMMER HAND DIFFERENTIAL AUTO Routine 07/29/2024 10: 12 AM TIRE TRIMMER HAND HEPATIC FUNCTION PANEL Routine 07/29/2024 10:12 AM TIRE TRIMMER HAND CREATININE Routine 07/29/2024 10:12 AM TIRE TRIMMER HAND CBC WITH AUTO DIFFERENTIAL Routine 07/29/2024 10:12 AM TIRE TRIMMER HAND from Last 3 Months Results * eGFR (07/29/2024 10:12 AM TIRE TRIMMER HAND) eGFR 79 >=60 mL/min/1. 73 m2 Comment: [...] reviewed 2021. Blood 07/29/2024 10:1 2 AM TIRE TRIMMER HAND 07/29/2024 6:41 PM TIRE TRIMMER HAND us Sterling Sandoval MD LAB BLOOD ORDERABLES Fin al Result [facility] [address] Department [place] [address] * Differential, auto (07/29/2024 10:12 AM TIRE TRIMMER HAND) Neutrophil abs 3.9 1.5 - 6.5 K/cumm Imm gran abs 0.0 0.0 - 0.1 K/cumm [facility] Lymphocyte abs 2.8 0.8 - 3.3 K/cumm [facility] Monocyte abs 0.7 0.2 - 0.8 K/cumm [facility] Eosinophil abs 0.2 0.0 - 0.5 K/cumm [facility] Basophil abs 0.1 0.0 - 0.1 K/cumm [facility] Neutrophil pct 50.4 % [facility] Comment: Interpretive Data Percent cell count reference ranges are not reported, since discordance with absolute values may lead to misinterpretation of CBC data. Current Interpretive Data was last revised on 2017. Imm gran pct 0.3 % [facility] Comment: Interpretive Data Percent cell count reference ranges are not reported, since discordance with absolute values may lead to misinterpretation of CBC data. Current Interpretive Data was last revised on 2017. Lymphocyte pct 36.8 % [facility] Comment: Interpretive Data Percent cell count reference ranges are not reported, since discordance with absolute values may lead to misinterpretation of CBC data. Current Interpretive Data was last revised on 2017. Monocyte pct 9.5 % [facility] Comment: Interpretive Data Percent cell count reference ranges are not reported, since discordance with absolute values may lead to misinterpretation of CBC data. Current Interpretive Data was last revised on 2017. Eosinophil pct 2.2 % [facility] Comment: Interpretive Data Percent cell count reference ranges are not reported, since discordance with absolute values may lead to misinterpretation of CBC data. Current Interpretive Data was last revised on 2017. Basophil pct 0.8 % [facility] Comment: Interpretive Data Percent cell count reference ranges are not reported, since discordance with absolute values may lead to misinterpretation of CBC data. Current Interpretive Data was last revised on 2017. Blood 07/29/2024 10:1 2 AM TIRE TRIMMER HAND 07/29/2024 4:08 PM TIRE TRIMMER HAND us Sterling Sandoval MD LAB BLOOD ORDERABLES Fin al Result [facility] [address] Department [place] [address] * (ABNORMAL) CBC with auto differential (07/29/2024 10:12 AM TIRE TRIMMER HAND) WBC 7.7 3.8 - 9.9 K/cumm Hgb 12.0 11.9 - 15.5 g/dL [facility] Hct 39.6 35.6 - 45.5 % [facility] Plt 288 150 - 400 K/cumm [facility] MPV 11.1 9.1 - 12.3 fL [facility] RBC 4.08 3.90 - 5.20 M/cumm [facility] MCV 97.1(H) 81.3 - 96.4 fL [facility] MCH 29.4 27.1 - 33.3 pg [facility] MCHC 30.3(L) 32.3 - 35.7 g/dL [facility] RDW CV 14.2 11.1 - 14.9 % [facility] RDW SD 50.5(H) 35.7 - 48.1 fL [facility] NRBC abs 0.00 0.00 - 0.01 K/cumm [facility] Blood 07/29/2024 10:1 2 AM TIRE TRIMMER HAND 07/29/2024 4:08 PM TIRE TRIMMER HAND us Sterling Sandoval MD LAB BLOOD ORDERABLES Fin al Result Performing Organization Address City/[facility] Co de Phone Number [facility] [address] [facility] [place], [place] [id number] * Creatinine (07/29/2024 10:12 AM TIRE TRIMMER HAND) Creatinine 0.81 0.60 - 1.10 mg/dL Blood 07/29/2024 10:1 2 AM TIRE TRIMMER HAND 07/29/2024 4:11 PM TIRE TRIMMER HAND us Sterling Sandoval MD LAB BLOOD ORDERABLES Fin al Result Performing Organization Address City/[facility]/ZIP Co de Phone Number [facility] [address] [facility] [place] [address] * Hepatic function panel (07/29/2024 10:12 AM TIRE TRIMMER HAND) Bilirubin, total 0.4 0.1 - 1.2 mg/dL Bilirubin, direct <0.2 0.1 - 0.3 mg/dL [facility] Protein, pl 6.7 6.5 - 8.5 g/dL [facility] Albumin 4.0 3.5 - 5.0 g/dL [facility] Alk phos 74 40 - 130 Units/L [facility] ALT 16 7 - 45 Units/L [facility] AST 16 10 - 45 Units/L [facility] Blood 07/29/2024 10:1 2 AM TIRE TRIMMER HAND 07/29/2024 4:11 PM TIRE TRIMMER HAND Sterling Sandoval MD LAB BLOOD ORDERABLES Fin al Result [facility] [address] Department [place] [address] from Last 3 Months Insurance [facility] PPO MEDICARE [facility] MEDICARE [facility] Care Teams Dairy Frozen Manager Relationship Specialty Start Date End Date Nishant Meehan MD [address] [place] [address] PCP - General Family Medicine 02/20/23 Missy Rdz MD [address] [address] Radiation Oncologist Radiation Oncology 06/21/24 Ryan Ghosh MD [address] [address] Consulting Physician Internal Medicine 06/21/24
--- OUTSIDE RECORDS SUMMARY | 2024-07-30 09:56 | XMS_ITS | Patient Health Summary ---
Author Organization [facility] Address [address] [facility] [place] [address] Care Team Providers Care Movie Projectionist Name Role Phone Nishant Meehan MD Primary Care Provider + Note from [facility],non-owned Affiliates and Associated Physician Practices is amultiple site organization consisting of ambulatory clinics and hospital sitesin [place], [place], [place] and [place]. This disclosure is being madepursuant to the Care Everywhere program and may not contain all information available regarding this patient. Last updated 18.[facility] Social History Tobacco Use Types Packs/Day Years Used Date Smoking Tobacco: Never Assessed Sex and Gender Information Value Date Recorded Sex Assigned at Not on file Gender Identity Not on file Sexual Orientation Not on file Procedures * DERMATOPATHOLOGY(Performed 08/18/2014) Results * PATHOLOGY TISSUE FOR DERMATOLOGY (08/18/2014 12:00 AM MEDICINAL CHEMIST) Result CASE: [id number] PATIENT: VIJAYA CARLISLE PATHOLOGIC DIAGNOSIS: A. 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 Left cheek inferior: SYRINGOMA APPROXIMATES MARGIN CLINICAL DATA: A: R/O syringioma vs other adnexal neoplasm. B: R/O fibrofolliculosus trichodiscomas. GROSS DESCRIPTION: A: ??Received is one formalin filled container labeled with the patients name and designated left cheek superior. The specimen consists of a punch biopsy measuring [id number], the margin is inked green. Jar 0. B: ??Received is one formalin filled container labeled with the patients name and designated left cheek inferior. The specimen consists of a punch biopsy measuring [id number], the margin is inked green. Jar 0. MICROSCOPIC DESCRIPTION: SPECIMEN ??A Embedded in a fibrous stroma, there are small duct-like spaces that are lined predominantly by two rows of epithelial cells. ??Some of these duct-like structures have comma-like tails. ??There is amorphous eosinophilic material within the spaces. This lesion is present at the margin of the specimen. SPECIMEN ??B Embedded in a fibrous stroma, there are small duct-like spaces that are lined predominantly by two rows of epithelial cells. ??Some of these duct-like structures have comma-like tails. ??There is amorphous eosinophilic material within the spaces. Lesion approximates the lateral margin of the specimen. Electronically signed out by Indira Montanez M.D. 08/22/2014 2:08:22PM [facility] Comment: Performed at: Dermatopathology Laboratory [facility] Department of Dermatology [address] [place] [address] [place] [address] Phone number: [phone] FAX: [phone] 08/18/2014 08/19/2014 Hany Kothari MD LAB - PATHOLOGY/CYTO LOGY ORDERABLES [facility] [address] [place] [address]. [facility] [place] [address], [facility] [phone] Care Teams Movie Projectionist Relationship Specialty Start Date End Date Nishant Meehan MD [address] [place] [id number] PCP - General 10/20/15
--- OUTSIDE RECORDS SUMMARY | 2024-07-30 09:56 | XMS_ITS | Clinical Summary ---
Author Organization [facility] Address [address] [facility] [address] [place] [address] Phone Care Team Providers Care Manager Channel Name Role Phone Nishant Meehan MD Primary Care Provider + Leonel Bartlett DO Unavailable [phone] Allergies No known active allergies Medications calcium 600 MG Tablet Take 600 mg by mouth 2 times daily. Active diclofenac (VOLTAREN) 75 MG Tablet Delayed Response Take 75 mg by mouth 2 times daily. Active estradiol (ESTRACE) 0.5 MG Tablet Take 1 mg by mouth daily. Hazardous: Medication requires special safe handling and disposal. Active methIMAzole (TAPAZOLE) 5 MG Tablet Take by mouth daily. 7 Active Acetaminophen (TYLENOL ARTHRITIS PAIN PO) Take by mouth 2 times daily as needed. Active escitalopram (LEXAPRO) 20 MG Tablet daily. 8 Active omeprazole (PRILOSEC) 20 MG CAPSULE DELAYED RELEASE Take 1 Cap by mouth daily. 90 Cap 3 9 Active levoFLOXacin (LEVAQUIN) 750 MG Tablet 1 Active zolpidem (AMBIEN) 10 MG Tablet Take 10 mg by mouth nightly as needed. Active hydrocortisone 2.5 % CreamIndications :Hemorrhoids, unspecified hemorrhoid type Apply to rectum as needed up to 2 x a day 30 g 5 1 Active Golimumab (SIMPONI ARIA IV) by Intravenous route Every 3 months. Active metroNIDAZOLE (FLAGYL) 500 MG TabletIndication s:Colitis Take 1 Tablet by mouth 3 times daily. 30 Tablet Active Additional Information Patient not taking.Reported on 02/15/2021 atorvastatin (LIPITOR) 20 MG Tablet Take 20 mg by mouth daily. Active Bacillus Coagulans-Inulin (ALIGN PREBIOTIC-PROBIO TIC PO) Take by mouth daily. Active Active Problems Problem Noted Date Diagnosed Date Irritable bowel syndrome wit h both constipation and diarrhea 08/09/2020 Colitis 08/09/2020 Hemorrhoids 08/09/2020 Immunizations Immunization Administration Dates Next Due Covid-19, Mrna, Lnp-s, PF, 1 00 mcg/0.5 mL Dose (Moderna) 09/09/2020,08/12/2020 Influenza Vaccine greater than 3 yrs 03/24/2015 Influenza Vaccine, Quadrivalent, PF 02/28/2020 Influenza, Seasonal, Injectable, Undefined 03/24 Family History Medical History Relation Name Comments Heart Attack Brother Heart Disease Brother Liver Cancer Father Cancer Maternal Uncle unknown Hypertension Mother Relation Name Status Comments Brother Father Maternal Uncle Mother Alive Social History Tobacco Use Types Packs/Day Years Used Date Smoking Tobacco: Former Cigarettes 0.5 25 1 - 2017 Smokeless Tobacco: Never Tobacco Cessation:Counseling Given: No Alcohol Use Standard Drinks/Week Comments Yes 0 (1 standard drink = 0.6 oz pur e alcohol) 1x weekly Sexually Active Control Partners Comments Yes Comments No Sex and Gender Information Value Date Recorded Sex Assigned at Not on file Legal Sex Female 11:10 PM CDT Gender Identity Not on file Sexual Orientation Not on file Occupation Industry Job Start Date Job End Date retired Not on file Not on file Not on file Last Filed Vital Signs Vital Sign Reading Time Taken Comments Blood Pressure 120/70 04/10/2021 9:38 AM CDT Pulse 46 04/10/2021 9:38 AM CDT Temperature 37 ??C (98.6 ??F) 04/10/2021 9:38 AM CDT Respiratory Rate 12 04/10/2021 9:38 AM CDT Oxygen Saturation 96% 04/10/2021 9:38 AM CDT Inhaled Oxygen Concentration - - Weight 56.7 kg (125 lb) 03/22/2021 3:00 PM CDT Height 160 cm (5' 3 ) 03/22/2021 3:00 PM CDT Body Mass Index 22.14 03/22/2021 3:00 PM CDT Plan of Treatment Health Maintenance Due Date Last Done Comments DEXA Bone Density 1955 Hepatitis C Virus (HCV) Screening 1955 TdaP Immunization 1955 Zoster Immunization (1 of 2) 1974 Cologuard 2005 Immunochemical Fecal Occult Blood 2005 Mammogram 2005 Pneumococcal Immunization (50+ years) (1 of 1 - PCV) 2005 Respiratory Syncytial Virus (RSV) Immunization (Adult) (1 - Risk 60-74 years 1-dose series) 2015 Influenza Immunization (#1) 2024 092 01/2021, 02/28/2020, 03/24/2015 SARS-COV-2 Immunization ( season) 2024 10/02/2021, 02/15/2021, 09/09/2020, Additional history exists Colonoscopy 04/10/2026 04/10/2021, 10/12/2015 Colorectal Cancer Screening 04/10/2026 04/10/2021, 10/12/2015 Hepatitis B Immunization Aged Out No longer eligible based on patient's age to complete this topic Meningococcal Immunization (ACWY) Aged Out No longer eligible based on patient's age to complete this topic Rotavirus Immunization Aged Out No lo nger eligible based on patient's age to complete this topic Procedures Procedure Name Priority Date/Time Associated Diagnosis Comments COLONOSCOPY Routine 10/12/2015 from Last 3 Months or Most Recently Relevant to Health Maintenance Results * COLONOSCOPY (10/12/2015) us Leonel Bartlett DO PROCEDURE/MINOR SURGICAL ORDERA BLES Final Result from Last 3 Months or Most Recently Relevant to Health Maintenance Insurance MEDICARE COMMERCIAL GENERIC Care Teams Manager Channel Relationship Specialty Start Date End Date Nishant Meehan MD [address] [place] [address] PCP - General Family Medicine 08/10/15 Leonel Bartlett DO [address] [place] [address] Gastroenterology 10/31/15
--- OUTSIDE RECORDS SUMMARY | 2024-07-30 09:56 | XMS_ITS | Encounter Summary ---
Author Organization [facility] Healthcare Address [address] [place] [address] Care Team Providers Care Outpatient Physical Therapist Assistant Name Role Phone Nishant Meehan MD Primary Care Prov ider Missy Rdz MD Unavailable [phone] Ryan Ghosh MD Unavailable [phone] Encounter Details Date Type Department Care Team (Latest Contact Info) Description 07/29/2024 2:04 PM MULTI MEDIA SPECIALIST - 07/29/2024 11:59 PM MULTI MEDIA SPECIALIST Hospital Encounter [facility] [address] [place] [address] Discharge Disposition: Discharge to home or self care Social History Tobacco Use Types Packs/Day Years Used Date Smoking Tobacco: Former Cigarettes 1 41 1 979 - 2019 Smokeless Tobacco: Never Chew Alcohol Use Standard Drinks/Week Comments Yes 1 [...] on file Legal Sex Female 11:32 PM MULTI MEDIA SPECIALIST Gender Identity Not on file Sexual Orientation Not on file documented as of this encounter Medications at Time of Discharge acetaminophen ER (Tylenol Arthritis Pain) 650 mg 8 hr tablet take 2 tablets (1,300 mg) by oral route every 8 hours swallowing whole with water. Do not break, crush, dissolve and/or chew. Oral 3 atorvastatin (LIPITOR) 20 mg tablet Take 1 tablet (20 mg total) by mouth daily benzonatate (TESSALON) 200 mg capsuleIndications :Acute non-recurrent pansinusitis Take 1 capsule (200 mg total) by mouth 3 (three) times a day as needed for cough 30 capsule 11/10/2023 calcium carbonate/vitamin D3 (CALCIUM 600 + D,3, ORAL) Take 2 capsules by mouth daily. diclofenac DR (VOLTAREN) 75 mg EC tablet 1 TABLET NEEDED ORALLY TWICE A DAY NEEDED 90 DAYS 06/21/2024 escitalopram (LEXAPRO) 20 mg tablet Take 1 tablet (20 mg total) by mouth every morning estradiol (ESTRACE) 1 mg tablet Take 1 tablet (1 mg total) by mouth daily fluticasone propionate (FLONASE) 50 mcg/actuation nasal spray 12/22/2022 methIMAzole (TAPAZOLE) 10 mg tablet Take 1 tablet (10 mg total) by mouth 2 (two) times a day nabumetone (RELAFEN) 750 mg tablet TAKE 1 TABLET (750 MG) BY ORAL ROUTE 2 TIMES PER DAY NEEDED 02/07/2023 omeprazole (PriLOSEC) 20 mg capsule Take by mouth daily triamcinolone (KENALOG) 0.1 % paste place a small amount to the affected area by mucous membrane route once daily at bedtime Mouth/Throat 1 08/15/2021 zolpidem (AMBIEN) 10 mg tabletIndications: Sleep-Onset Insomnia Take 1 tablet (10 mg total) by mouth nightly as needed for sleep documented as of this encounter Discharge Disposition Disposition Code Departure Means Destination Discharge to home or self care documented in this encounter Plan of Treatment Not on file documented as of this encounter Procedures Procedure Name Priority Date/Time Associated Diagnosis Comments EGFR Routine 07/29/2024 10:12 AM MULTI MEDIA SPECIALIST DIFFERENTIAL AUTO Routine 07/29/2024 10: 12 AM MULTI MEDIA SPECIALIST CBC WITH AUTO DIFFERENTIAL Routine 07/29/2024 10:12 AM MULTI MEDIA SPECIALIST CREATININE Routine 07/29/2024 10:12 AM MULTI MEDIA SPECIALIST HEPATIC FUNCTION PANEL Routine 07/29/2024 10:12 AM MULTI MEDIA SPECIALIST documented in this encounter Results * eGFR (07/29/2024 10:12 AM MULTI MEDIA SPECIALIST) eGFR 79 >=60 mL/min/1. 73 m2 Comment: [...] of Race in Diagnosing Kidney Disease, JASN 202). The CKD-EPI equation should not be used for patients with unstable renal function and has not been validated in children and those over 70. Current interpretive data was last reviewed 2021. Blood 07/29/2024 10:1 2 AM MULTI MEDIA SPECIALIST 07/29/2024 6:41 PM MULTI MEDIA SPECIALIST us Sterling Sandoval MD LAB BLOOD ORDERABLES Fin al Result [facility] [address] Department [place] [address] * Differential, auto (07/29/2024 10:12 AM MULTI MEDIA SPECIALIST) Neutrophil abs 3.9 1.5 - 6.5 K/cumm Imm gran abs 0.0 0.0 - 0.1 K/cumm [facility] Lymphocyte abs 2.8 0.8 - 3.3 K/cumm [facility] Monocyte abs 0.7 0.2 - 0.8 K/cumm [facility] Eosinophil abs 0.2 0.0 - 0.5 K/cumm [facility] Basophil abs 0.1 0.0 - 0.1 K/cumm [facility] Neutrophil pct 50.4 % [facility] Comment: Interpretive Data Percent cell count reference ranges are not reported, since discordance with absolute values may lead to misinterpretation of CBC data. Current Interpretive Data was last revised on 2017. Imm gran pct 0.3 % [facility] Comment: Interpretive Data Percent cell count reference ranges are not reported, since discordance with absolute values may lead to misinterpretation of CBC data. Current Interpretive Data was last revised on 2017. Lymphocyte pct 36.8 % [facility] Comment: Interpretive Data Percent cell count reference ranges are not reported, since discordance with absolute values may lead to misinterpretation of CBC data. Current Interpretive Data was last revised on 2017. Monocyte pct 9.5 % [facility] Comment: Interpretive Data Percent cell count reference ranges are not reported, since discordance with absolute values may lead to misinterpretation of CBC data. Current Interpretive Data was last revised on 2017. Eosinophil pct 2.2 % [facility] Comment: Interpretive Data Percent cell count reference ranges are not reported, since discordance with absolute values may lead to misinterpretation of CBC data. Current Interpretive Data was last revised on 2017. Basophil pct 0.8 % [facility] Comment: Interpretive Data Percent cell count reference ranges are not reported, since discordance with absolute values may lead to misinterpretation of CBC data. Current Interpretive Data was last revised on 2017. Blood 07/29/2024 10:1 2 AM MULTI MEDIA SPECIALIST 07/29/2024 4:08 PM MULTI MEDIA SPECIALIST Sterling Sandoval MD LAB BLOOD ORDERABLES Fin al Result Performing Organization Address City/[facility] Co de Phone Number [facility] [address] Department [place] [address] * Hepatic function panel (07/29/2024 10:12 AM MULTI MEDIA SPECIALIST) [facility] Bilirubin, total 0.4 0.1 - 1.2 mg/dL Bilirubin, direct <0.2 0.1 - 0.3 mg/dL [facility] Protein, pl 6.7 6.5 - 8.5 g/dL [facility] Albumin 4.0 3.5 - 5.0 g/dL [facility] Alk phos 74 40 - 130 Units/L [facility] ALT 16 7 - 45 Units/L [facility] AST 16 10 - 45 Units/L [facility] Blood 07/29/2024 10:1 2 AM MULTI MEDIA SPECIALIST 07/29/2024 4:11 PM MULTI MEDIA SPECIALIST Sterling Sandoval MD LAB BLOOD ORDERABLES Fin al Result Performing Organization Address [facility] Co de Phone Number [facility] [address] Department [place] [address] * Creatinine (07/29/2024 10:12 AM MULTI MEDIA SPECIALIST) [facility] Creatinine 0.81 0.60 - 1.10 mg/dL Blood 07/29/2024 10:1 2 AM MULTI MEDIA SPECIALIST 07/29/2024 4:11 PM MULTI MEDIA SPECIALIST Sterling Sandoval MD LAB BLOOD ORDERABLES Fin al Result Performing Organization Address [facility] Co de Phone Number [facility] [address] Department [place] [address] * (ABNORMAL) CBC with auto differential (07/29/2024 10:12 AM MULTI MEDIA SPECIALIST) [facility] WBC 7.7 3.8 - 9.9 K/cumm Hgb 12.0 11.9 - 15.5 g/dL [facility] Hct 39.6 35.6 - 45.5 % [facility] Plt 288 150 - 400 K/cumm [facility] MPV 11.1 9.1 - 12.3 fL [facility] RBC 4.08 3.90 - 5.20 M/cumm [facility] MCV 97.1(H) 81.3 - 96.4 fL [facility] MCH 29.4 27.1 - 33.3 pg [facility] MCHC 30.3(L) 32.3 - 35.7 g/dL [facility] RDW CV 14.2 11.1 - 14.9 % [facility] RDW SD 50.5(H) 35.7 - 48.1 fL [facility] NRBC abs 0.00 0.00 - 0.01 K/cumm [facility] Blood 07/29/2024 10:1 2 AM MULTI MEDIA SPECIALIST 07/29/2024 4:08 PM MULTI MEDIA SPECIALIST Sterling Sandoval MD LAB BLOOD ORDERABLES Fin al Result [facility] [address] Department [place] [address] documented in this encounter Visit Diagnoses Not on filedocumented in this encounter Care Teams Outpatient Physical Therapist Assistant Relationship Specialty Start Date End Date Nishant Meehan MD [address] [place] [address] PCP - General Family Medicine 02/20/23 Missy Rdz MD [address] [facility] [address] [place] [address] Radiation Oncologist Radiation Oncology 06/21/24 Ryan Ghosh MD [address] [facility] [address] [place] [address] Consulting Physician Internal Medicine 06/21/24 documented as of this encounter
== END 2024-07-30 09:42 | disposition home or self-care (01) ==
LOC: ANHCARD 09:42
PROVIDERS: PCP Family Medicine Adolescent Medicine; Visit Provider Family Medicine Adolescent Medicine
DX: R00.0 Tachycardia, unspecified (principal); R00.2 Palpitations
CPT/HCPCS: 93306

== ENCOUNTER 2025-03-02 20:00 | Emergency (ER) | payer MEDICARE, OTHER, SELFPAY ==
--- NOTE | ~2025-03-02 | CT_ITS ---
EXAMINATION: CT abdomen pelvis w con DATE: 03/02/2025 22:15 INDICATION: Diffuse abdominal pain and diarrhea TECHNIQUE: Computed tomography (CT) of the abdomen and pelvis was performed with 100 mL Omnipaque-350 intravenous contrast. Automated exposure control and iterative reconstruction technique were employed. The dose-length product was 215.62 mGy-cm. COMPARISON: CT dated 08/06/2020 FINDINGS: Minimal dependent atelectasis. Heart size normal. No pericardial or pleural effusion. Small sliding-type hiatal hernia. Mild intra and extra hepatic biliary ductal dilation which may be related to prior cholecystectomy with surgical clips at the gallbladder fossa. Spleen, pancreas, bilateral adrenal glands and kidneys are normal. There is diffuse edematous wall thickening of the colon consistent with colitis. Small bowel and appendix are normal. Bladder is normal. The uterus is not identified and has likely been surgically resected. No free intraperitoneal gas or fluid. No pathologically enlarged abdominal or pelvic lymphadenopathy. Small of atherosclerotic calcification at the normal caliber infrarenal abdominal aorta with no hemodynamically significant stenosis. Severe lower lumbar spondylosis. IMPRESSION: 1. Diffuse colitis which could be infectious, inflammatory or less likely ischemic in etiology. Reviewed, dictated and finalized at location A. IMPRESSION: 1. Diffuse colitis which could be infectious, inflammatory or less likely ische annalise in etiology.
--- OUTSIDE RECORDS SUMMARY | 2025-03-02 19:15 | XMS_ITS | Encounter Summary ---
Author Organization [facility] Healthcare Address [address] [place] [address] Care Team Providers Care Electronic Assembler Group Leader Name Role Phone Nishant Meehan MD Primary Care Prov ider Missy Rdz MD Unavailable [phone] Ryan Ghosh MD Unavailable [phone] Reason for Visit * Reason Comments Nausea And Vomitting Present x 3 daysPt states she's not able to keep food/fluids down Diarrhea Generalized Body Aches Encounter Details Date Type Department Care Team (Late st Contact Info) Description 03/02/2025 7:15 PM CDT Office Visit 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 Gender Identity Not on file Sexual Orientation Not on file documented as of this encounter Last Filed Vital Signs Vital Sign Reading Time Taken Comments Blood Pressure 164/83 03/02/2025 7:11 PM CDT Pulse 88 03/02/2025 7:11 PM CDT Temperature 37.2 C (98.9 F) 03/02/2025 7:11 PM CDT Respiratory Rate 18 03/02/2025 7:11 PM CDT Oxygen Saturation 97% 03/02/2025 7:11 PM CDT Inhaled Oxygen Concentration - - Weight 61.5 kg (135 lb 8 oz) 03/02/2025 7:11 PM CDT Height 160 cm (5' 2.99) 03/02/2025 7:11 PM CDT Body Mass Index 24.01 03/02/2025 7:11 PM CDT documented in this encounter Plan of Treatment Not on file documented as of this encounter Procedures Procedure Name Priority Date/Time Associated Diagnosis Comments POC INFLUENZA A/B, COVID-19 ANTIGEN Routine 03/02/2025 7:24 PM CDT Nausea and vomiting, unspecified vomiting type Abdominal pain documented in this encounter Results * POC Influenza A/B, COVID-19 antigen (03/02/2025 7:24 PM CDT) Influenza A Ag, POC Negative Negative [facility] Influenza B Ag, POC Negative Negative [facility] COVID-19 Ag POC Presumptive Negative Presumptive Negative, Invalid [facility] Nasal 03/02/2025 7:24 PM CDT us Ronel Aaron NP POINT OF CARE TEST ORDERAB LES Final Result [facility] [address] [place] [address], [facility] documented in this encounter Visit Diagnoses Diagnosis Nausea and vomiting, unspecified vomiting type- Primary Abdominal pain Abdominal pain, unspecified site Diarrhea, unspecified type Decreased urination Oliguria and anuria documented in this encounter Additional Health Concerns Infection Onset Date Last Indicated Resolved Time COVID: Suspected 03/02/2025 03/02/2025 03/02/2025 7:40 PM CDT documented as of this encounter Care Teams Electronic Assembler Group Leader Relationship Specialty Start Date End Date Nishant Meehan MD PCP - General Family Medicine 02/20/23 Missy Rdz MD [address] [address] Radiation Oncologist Radiation Oncology 06/21/24 Ryan Ghosh MD [address] [facility] [address] [place] [address] Consulting Physician Internal Medicine 06/21/24 documented as of this encounter
--- OUTSIDE RECORDS SUMMARY | 2025-03-02 20:02 | XMS_ITS | Clinical Summary ---
Author Organization [facility] Address [address] [facility] [address] [place] [address] Phone Care Team Providers Care Pump Installer Name Role Phone Nishant Meehan MD Primary Care Provider + Leonel Bartlett DO Unavailable [phone] Allergies No known active allergies Medications calcium [...] 46 04/10/2021 9:38 AM CDT Temperature 37 C (98.6 F) 04/10/2021 9:38 AM CDT Respiratory Rate 12 04/10/2021 9:38 AM CDT Oxygen Saturation 96% 04/10/2021 9:38 AM CDT Inhaled Oxygen Concentration - - Weight 56.7 kg (125 lb) 03/22/2021 3:00 PM CDT Height 160 cm (5' 3) 03/22/2021 3:00 PM CDT Body Mass Index 22.14 03/22/2021 3:00 PM CDT Plan of Treatment Health Maintenance Due Date Last Done Comments Hepatitis C Virus (HCV) Screening 1955 TdaP Immunization 1955 Zoster Immunization (1 of 2) 1974 Cologuard 2000 Immunochemical Fecal Occult Blood 2000 Pneumococcal Immunization (50+ years) (1 of 1 - PCV) 2005 Respiratory Syncytial Virus (RSV) Immunization (Adult) (1 - Risk 60-74 years 1-dose series) 2015 Influenza Immunization (#1) 2025 09/2 01/2021, 02/28/2020, 03/24/2015, Additional history exists SARS-COV-2 Immunization (2024- season) 2025 10/02/2021, 02/15/2021, 09/09/2020, Additional history exists Colonoscopy 04/10/2026 04/10/2021, 10/12/2015 Colorectal Cancer Screening 04/10/2026 Hepatitis B Immunization Aged Out No longer eligible based on patient's age to complete this topic Human Papillomavirus (HPV) Immunization Aged Out No longer eligible based [...] Maintenance Insurance MEDICARE COMMERCIAL GENERIC Care Teams Pump Installer Relationship Specialty Start Date End Date Nishant Meehan MD PCP - General Family Medicine 08/10/15 Leonel Bartlett DO Gastroenterology 10/31/15
--- OUTSIDE RECORDS SUMMARY | 2025-03-02 20:02 | XMS_ITS | Patient Health Record ---
Author Organization [facility] Address [address] [place] [address] Care Team Providers Care Retrieval Specialist Name Role Phone Mendez HEDRICK, Nishant Primary Care Provider Unav ailable Sterling Dixon Unavailable [phone] Sterling Dixon MD Unavailable Unavailabl e Allergies No Known Allergies Results Component Value Reference Range Notes CBC w auto diff Reviewed date:04/09/2024 07:56:54 AM Interpretation: Performing Lab:[facility] , [facility]. [facility] [address] Notes/Report: WBC 7.5 3.8-9.9 K/cumm Hgb 12.7 11.9-15.5 g/dL Hct 41.9 35.6-45.5 % Platelet Ct 311 150-400 K/cumm MPV 11.3 9.1-12.3 fL RBC 4.29 3.90-5.20 M/cumm MCV 97.7 81.3-96.4 fL MCH 29.6 27.1-33.3 pg MCHC 30.3 32.3-35.7 g/dL RDW CV 14.6 11.1-14.9 % RDW SD 52.5 35.7-48.1 fL NRBC Abs Auto 0.00 0.00-0.01 K/cumm Creatinine Reviewed date:04/09/2024 07:56:54 AM Interpretation: Performing Lab:[facility] , [address] [facility] [place] [address] Notes/Report: Creatinine 0.81 0.60-1.10 mg/dL Hep Func Panel Reviewed date:04/09/2024 07:56:54 AM Interpretation: Performing Lab:[facility] , [address] [place] [address]. [facility] [address] Notes/Report: Total Bilirubin 0.5 0.1-1.2 mg/dL Bilirubin, Direct 0.2 0.1-0.3 mg/dL Plasma Total Protein 6.8 6.5-8.5 g/dL Albumin 4.1 3.5-5.0 g/dL Alkaline Phosphatase 77 40-130 Units/L ALT 20 7-45 Units/L AST 15 10-45 Units/L QTB Gold Reviewed date:04/12/2024 05:12:57 AM Interpretation: Performing Lab:[facility] , [address] [place] [address]. [facility] [address] Notes/Report: QuantiFERON TB Gold Negative Negative No interferon-gamma response to M. tuberculosis antigens was detected. Latent infection with M. tuberculosis is unlikely. A single negative result does not exclude infection with M. tuberculosis. In patients at high risk for M.tuberculosis infection, a second test should be considered in accordance with the 2017 ATS/IDSA/CDC Clinical Practice Guidelines for Diagnosis of Tuberculosis in Adults and Children [Lewinsohn DM et. al. Clin. Infect. Dis. 2017;64(2):111-115]. The reference range for the 'TB1 Ag minus Nil Result' and 'TB2 Ag minus Nil Result' is an Interferon-gamma level <0.35 IU/mL. TB-Nil 0.00 TB2-Nil 0.00 Mitogen-Nil 10.00 NIL 0.00 Test Performed by: [facility] [address] [place] [address] Assurance Services Manager Health Care: Rama Sanchez Ph.D.; CLIA# [id number] CBC w auto diff Reviewed date:07/29/2024 11:14:48 PM Interpretation: Performing Lab:[facility] , [address] [place] [address]. [facility] [address] Notes/Report: WBC 7.7 3.8-9.9 K/cumm Hgb 12.0 11.9-15.5 g/dL Hct 39.6 35.6-45.5 % Platelet Ct 288 150-400 K/cumm MPV 11.1 9.1-12.3 fL RBC 4.08 3.90-5.20 M/cumm MCV 97.1 81.3-96.4 fL MCH 29.4 27.1-33.3 pg MCHC 30.3 32.3-35.7 g/dL RDW CV 14.2 11.1-14.9 % RDW SD 50.5 35.7-48.1 fL NRBC Abs Auto 0.00 0.00-0.01 K/cumm Creatinine Reviewed date:07/29/2024 11:14:52 PM Interpretation: Performing Lab:[facility] , [address] [place] [address]. [facility] [address] Notes/Report: Creatinine 0.81 0.60-1.10 mg/dL Hep Func Panel Reviewed date:07/29/2024 11:14:41 PM Interpretation: Performing Lab:[facility] , [address] [place] [address]. [facility] [address] Notes/Report: Total Bilirubin 0.4 0.1-1.2 mg/dL Bilirubin, Direct <0.2 0.1-0.3 mg/dL Plasma Total Protein 6.7 6.5-8.5 g/dL Albumin 4.0 3.5-5.0 g/dL Alkaline Phosphatase 74 40-130 Units/L ALT 16 7-45 Units/L AST 16 10-45 Units/L CBC w auto diff Reviewed date:09/24/2024 06:47:11 AM Interpretation: Performing Lab:[facility] , [address] [place] [address]. [place] [address] Notes/Report: WBC 7.7 3.8-9.9 K/cumm Hgb 12.4 11.9-15.5 g/dL Hct 40.0 35.6-45.5 % Platelet Ct 303 150-400 K/cumm MPV 11.3 9.1-12.3 fL RBC 4.12 3.90-5.20 M/cumm MCV 97.1 81.3-96.4 fL MCH 30.1 27.1-33.3 pg MCHC 31.0 32.3-35.7 g/dL RDW CV 14.7 11.1-14.9 % RDW SD 52.9 35.7-48.1 fL NRBC Abs Auto 0.00 0.00-0.01 K/cumm Creatinine Reviewed date:09/24/2024 06:47:17 AM Interpretation: Performing Lab:[facility] , [address] [place] [address]. [facility] [address] Notes/Report: Creatinine 0.71 0.60-1.10 mg/dL Hep Func Panel Reviewed date:09/24/2024 06:47:05 AM Interpretation: Performing Lab:[facility] , [address] [place] [address]. [facility] [address] Notes/Report: Total Bilirubin 0.5 0.1-1.2 mg/dL Bilirubin, Direct 0.2 0.1-0.3 mg/dL Plasma Total Protein 7.0 6.5-8.5 g/dL Albumin 4.0 3.5-5.0 g/dL Alkaline Phosphatase 75 40-130 Units/L ALT 17 7-45 Units/L AST 17 10-45 Units/L Differential Automated Reviewed date:04/09/2024 07:56:54 AM Interpretation: Performing Lab:[facility] , [address] [place] [address]. [facility] [address] Notes/Report: Neut Abs 4.0 1.5-6.5 K/cumm ImmGran Abs 0.0 0.0-0.1 K/cumm Lymphocyte Abs 2.6 0.8-3.3 K/cumm [place] Abs 0.6 0.2-0.8 K/cumm Eos Abs 0.2 0.0-0.5 K/cumm Baso Abs 0.1 0.0-0.1 K/cumm Neut Pct 52.8 Interpretive Data Percent cell count reference ranges are not reported, since discordance with absolute values may lead to misinterpretation of CBC data. Current Interpretive Data was last revised on 2017. ImmGran Pct 0.4 Interpretive Data Percent cell count reference ranges are not reported, since discordance with absolute values may lead to misinterpretation of CBC data. Current Interpretive Data was last revised on 2017. Lymph Pct 35.3 Interpretive Data Percent cell count reference ranges are not reported, since discordance with absolute values may lead to misinterpretation of CBC data. Current Interpretive Data was last revised on 2017. [place] Pct 7.9 Interpretive Data Percent cell count reference ranges are not reported, since discordance with absolute values may lead to misinterpretation of CBC data. Current Interpretive Data was last revised on 2017. Eos Pct 2.9 Interpretive Data Percent cell count reference ranges are not reported, since discordance with absolute values may lead to misinterpretation of CBC data. Current Interpretive Data was last revised on 2017. Baso Pct 0.7 Interpretive Data Percent cell count reference ranges are not reported, since discordance with absolute values may lead to misinterpretation of CBC data. Current Interpretive Data was last revised on 2017. eGFR Reviewed date:04/09/2024 07:56:54 AM Interpretation: Performing Lab:[facility] , [address] [facility] [facility] [address] Notes/Report: eGFR 79 >=60 mL/min/1.73 m2 Interpretive Data Reference Interval Normal >/= 90 mL/min/1.73m2 Mildly decreased* 60 - 89 mL/min/1.73m2 Mildly to moderately decreased 45 - 59 mL/min/1.73m2 Moderately to severely decreased 30 - 44 mL/min/1.73m2 Severely decreased 15 - 29 mL/min/1.73m2 Kidney Failure < 15 mL/min/1.73m2 *Relative to young adult level Estimated glomerular [...] Current interpretive data was last reviewed 2021. eGFR Reviewed date:01/26/2025 07:54:56 PM Interpretation: Performing Lab:[facility] , [address] [facility]. [place] [address] Notes/Report: eGFR 88 >=60 mL/min/1.73 m2 Interpretive Data Reference Interval Normal >/= 90 mL/min/1.73m2 Mildly decreased* 60 - 89 mL/min/1.73m2 Mildly to moderately decreased 45 - 59 mL/min/1.73m2 Moderately to severely decreased 30 - 44 mL/min/1.73m2 Severely decreased 15 - 29 mL/min/1.73m2 Kidney Failure < 15 mL/min/1.73m2 *Relative to young adult level Estimated glomerular filtration rate is determined by the 2020 CKD-EPI equation recommended by the National Kidney Foundation (A Unifying Approach to GFR Estimation: Recommendations of the NKF-ASK Task Force on Reassessing the Inclusion of Race in Diagnosing Kidney Disease, JASN 2021). The CKD-EPI equation should not be used for patients with unstable renal function and has not been validated in children and those over 70. Current interpretive data was last reviewed 2021. eGFR Reviewed date:07/29/2024 11:15:52 PM Interpretation: Performing Lab:[facility] , [address] [place] [address]. [place] [address] Notes/Report: eGFR 79 >=60 mL/min/1.73 m2 Interpretive Data Reference Interval Normal >/= 90 mL/min/1.73m2 Mildly decreased* 60 - 89 mL/min/1.73m2 Mildly to moderately decreased 45 - 59 mL/min/1.73m2 Moderately to severely decreased 30 - 44 mL/min/1.73m2 Severely decreased 15 - 29 mL/min/1.73m2 Kidney Failure < 15 mL/min/1.73m2 *Relative to young adult level Estimated glomerular filtration rate is determined by the 2020 CKD-EPI equation recommended by the National Kidney Foundation (A Unifying Approach to GFR Estimation: Recommendations of the NKF-ASK Task Force on Reassessing the Inclusion of Race in Diagnosing Kidney Disease, JASN 2021). The CKD-EPI equation should not be used for patients with unstable renal function and has not been validated in children and those over 70. Current interpretive data was last reviewed 2021. Differential Automated Reviewed date:07/29/2024 11:15:47 PM Interpretation: Performing Lab:[facility] , [address] [place] [address]. [place] [address] Notes/Report: Neut Abs 3.9 1.5-6.5 K/cumm ImmGran Abs 0.0 0.0-0.1 K/cumm Lymphocyte Abs 2.8 0.8-3.3 K/cumm [place] Abs 0.7 0.2-0.8 K/cumm Eos Abs 0.2 0.0-0.5 K/cumm Baso Abs 0.1 0.0-0.1 K/cumm Neut Pct 50.4 Interpretive Data Percent cell count reference ranges are not reported, since discordance with absolute values may lead to misinterpretation of CBC data. Current Interpretive Data was last revised on 2017. ImmGran Pct 0.3 Interpretive Data Percent cell count reference ranges are not reported, since discordance with absolute values may lead to misinterpretation of CBC data. Current Interpretive Data was last revised on 2017. Lymph Pct 36.8 Interpretive Data Percent cell count reference ranges are not reported, since discordance with absolute values may lead to misinterpretation of CBC data. Current Interpretive Data was last revised on 2017. [place] Pct 9.5 Interpretive Data Percent cell count reference ranges are not reported, since discordance with absolute values may lead to misinterpretation of CBC data. Current Interpretive Data was last revised on 2017. Eos Pct 2.2 Interpretive Data Percent cell count reference ranges are not reported, since discordance with absolute values may lead to misinterpretation of CBC data. Current Interpretive Data was last revised on 2017. Baso Pct 0.8 Interpretive Data Percent cell count reference ranges are not reported, since discordance with absolute values may lead to misinterpretation of CBC data. Current Interpretive Data was last revised on 2017. Sed Rate Reviewed date:01/26/2025 07:53:30 PM Interpretation: Performing Lab:[facility] , [address] [place] [address]. [place] [address] Notes/Report: ESR 10 1-30 mm/hr Hep Func Panel Reviewed date:01/26/2025 07:53:15 PM Interpretation: Performing Lab:[facility] , [facility]5 [facility]. [place] [address] Notes/Report: Total Bilirubin 0.4 0.1-1.2 mg/dL Bilirubin, Direct <0.2 0.1-0.3 mg/dL Plasma Total Protein 6.8 6.5-8.5 g/dL Albumin 3.9 3.5-5.0 g/dL Alkaline Phosphatase 84 40-130 Units/L ALT 17 7-45 Units/L AST 20 10-45 Units/L Creatinine Reviewed date:01/26/2025 07:53:24 PM Interpretation: Performing Lab:[facility] , [address] [place] [address] Notes/Report: Creatinine 0.74 0.60-1.10 mg/dL CBC w auto diff Reviewed date:01/27/2025 10:11:29 AM Interpretation: Performing Lab:[facility] , [address] [place] [address] Notes/Report: WBC 7.74 3.80-9.90 K/cumm Hgb 11.6 11.9-15.5 g/dL Hct 37.7 35.6-45.5 % Platelet Ct 319 150-400 K/cumm MPV 10.7 9.1-12.3 fL RBC 3.89 3.90-5.20 M/cumm MCV 96.9 81.3-96.4 fL MCH 29.8 27.1-33.3 pg MCHC 30.8 32.3-35.7 g/dL RDW CV 14.1 11.1-14.9 % RDW SD 50.1 35.7-48.1 fL NRBC Abs Auto 0.00 0.00-0.01 K/cumm C Reactive Protein Reviewed date:01/26/2025 07:54:39 PM Interpretation: Performing Lab:[facility] , [address] [place] [address] Notes/Report: C-Reactive Protein 5.2 <=10.0 mg/L Differential Automated Reviewed date:01/26/2025 07:54:46 PM Interpretation: Performing Lab:[facility] , [address] [place] [address] Notes/Report: Neut Abs 3.99 1.50-6.50 K/cumm ImmGran Abs 0.02 0.00-0.10 K/cumm Lymphocyte Abs 2.85 0.80-3.30 K/cumm [place] Abs 0.64 0.20-0.80 K/cumm Eos Abs 0.17 0.00-0.50 K/cumm Baso Abs 0.07 0.00-0.10 K/cumm Neut Pct 51.5 Interpretive Data Percent cell count reference ranges are not reported, since discordance with absolute values may lead to misinterpretation of CBC data. Current Interpretive Data was last revised on 2017. ImmGran Pct 0.3 Interpretive Data Percent cell count reference ranges are not reported, since discordance with absolute values may lead to misinterpretation of CBC data. Current Interpretive Data was last revised on 2017. Lymph Pct 36.8 Interpretive Data Percent cell count reference ranges are not reported, since discordance with absolute values may lead to misinterpretation of CBC data. Current Interpretive Data was last revised on 2017. [place] Pct 8.3 Interpretive Data Percent cell count reference ranges are not reported, since discordance with absolute values may lead to misinterpretation of CBC data. Current Interpretive Data was last revised on 2017. Eos Pct 2.2 Interpretive Data Percent cell count reference ranges are not reported, since discordance with absolute values may lead to misinterpretation of CBC data. Current Interpretive Data was last revised on 2017. Baso Pct 0.9 Interpretive Data Percent cell count reference ranges are not reported, since discordance with absolute values may lead to misinterpretation of CBC data. Current Interpretive Data was last revised on 2017. Iron Profile Reviewed date:01/27/2025 03:24:19 PM Interpretation: Performing Lab:[facility] , [address] [facility] [place] [place] [address] Notes/Report: Total Iron 84 35-145 mcg/dL Total Iron Bind Capacity 434 250-400 mcg/dL Transferrin Saturation 19 20-50 % Ferritin Reviewed date:01/27/2025 03:24:19 PM Interpretation: Performing Lab:[facility] , [address] [place] [address] Notes/Report: Ferritin 12 13-150 ng/mL eGFR Reviewed date:09/24/2024 06:51:16 AM Interpretation: Performing Lab:[facility] , [address] [facility] [place] [place] [address] Notes/Report: eGFR >90 >=60 mL/min/1.73 m2 Interpretive Data Reference Interval Normal >/= 90 mL/min/1.73m2 Mildly decreased* 60 - 89 mL/min/1.73m2 Mildly to moderately decreased 45 - 59 mL/min/1.73m2 Moderately to severely decreased 30 - 44 mL/min/1.73m2 Severely decreased 15 - 29 mL/min/1.73m2 Kidney Failure < 15 mL/min/1.73m2 *Relative to young adult level Estimated glomerular [...] Current interpretive data was last reviewed 2021. Differential Automated Reviewed date:09/24/2024 06:50:26 AM Interpretation: Performing Lab:[facility] , [address] [place] [address]. [facility] [address] Notes/Report: Neut Abs 3.7 1.5-6.5 K/cumm ImmGran Abs 0.0 0.0-0.1 K/cumm Lymphocyte Abs 2.9 0.8-3.3 K/cumm [place] Abs 0.8 0.2-0.8 K/cumm Eos Abs 0.2 0.0-0.5 K/cumm Baso Abs 0.1 0.0-0.1 K/cumm Neut Pct 48.6 Interpretive Data Percent cell count reference ranges are not reported, since discordance with absolute values may lead to misinterpretation of CBC data. Current Interpretive Data was last revised on 2017. ImmGran Pct 0.3 Interpretive Data Percent cell count reference ranges are not reported, since discordance with absolute values may lead to misinterpretation of CBC data. Current Interpretive Data was last revised on 2017. Lymph Pct 37.8 Interpretive Data Percent cell count reference ranges are not reported, since discordance with absolute values may lead to misinterpretation of CBC data. Current Interpretive Data was last revised on 2017. [place] Pct 9.8 Interpretive Data Percent cell count reference ranges are not reported, since discordance with absolute values may lead to misinterpretation of CBC data. Current Interpretive Data was last revised on 2017. Eos Pct 2.7 Interpretive Data Percent cell count reference ranges are not reported, since discordance with absolute values may lead to misinterpretation of CBC data. Current Interpretive Data was last revised on 2017. Baso Pct 0.8 Interpretive Data Percent cell count reference ranges are not reported, since discordance with absolute values may lead to misinterpretation of CBC data. Current Interpretive Data was last revised on 2017. eGFR Reviewed date:11/18/2024 08:15:25 PM Interpretation: Performing Lab:[facility] , [address] [facility]. [place] [address] Notes/Report: eGFR 82 >=60 mL/min/1.73 m2 Interpretive Data Reference Interval Normal >/= 90 mL/min/1.73m2 Mildly decreased* 60 - 89 mL/min/1.73m2 Mildly to moderately decreased 45 - 59 mL/min/1.73m2 Moderately to severely decreased 30 - 44 mL/min/1.73m2 Severely decreased 15 - 29 mL/min/1.73m2 Kidney Failure < 15 mL/min/1.73m2 *Relative to young adult level Estimated glomerular [...] Current interpretive data was last reviewed 2021. Hep Func Panel Reviewed date:11/18/2024 08:16:07 PM Interpretation: Performing Lab:[facility] , [address] [facility] [place] [place] [address] Notes/Report: Total Bilirubin 0.3 0.1-1.2 mg/dL Bilirubin, Direct <0.2 0.1-0.3 mg/dL Plasma Total Protein 6.1 6.5-8.5 g/dL Albumin 3.7 3.5-5.0 g/dL Alkaline Phosphatase 70 40-130 Units/L ALT 17 7-45 Units/L AST 17 10-45 Units/L Creatinine Reviewed date:11/18/2024 08:11:34 PM Interpretation: Performing Lab:[facility] , [address] [place] [address]. [facility] [address] Notes/Report: Creatinine 0.78 0.60-1.10 mg/dL CBC w auto diff Reviewed date:11/23/2024 02:24:27 PM Interpretation: Performing Lab:[facility] , [address] [place] [address]. [facility] [address] Notes/Report: WBC 6.47 3.80-9.90 K/cumm Hgb 11.5 11.9-15.5 g/dL Hct 37.2 35.6-45.5 % Platelet Ct 341 150-400 K/cumm MPV 10.6 9.1-12.3 fL RBC 3.83 3.90-5.20 M/cumm MCV 97.1 81.3-96.4 fL MCH 30.0 27.1-33.3 pg MCHC 30.9 32.3-35.7 g/dL RDW CV 14.6 11.1-14.9 % RDW SD 51.9 35.7-48.1 fL NRBC Abs Auto 0.00 0.00-0.01 K/cumm Differential Automated Reviewed date:11/18/2024 08:14:34 PM Interpretation: Performing Lab:[facility] , [address] [place] [address]. [facility] [address] Notes/Report: Neut Abs 3.21 1.50-6.50 K/cumm ImmGran Abs 0.02 0.00-0.10 K/cumm Lymphocyte Abs 2.38 0.80-3.30 K/cumm [place] Abs 0.70 0.20-0.80 K/cumm Eos Abs 0.12 0.00-0.50 K/cumm Baso Abs 0.04 0.00-0.10 K/cumm Neut Pct 49.6 Interpretive Data Percent cell count reference ranges are not reported, since discordance with absolute values may lead to misinterpretation of CBC data. Current Interpretive Data was last revised on 2017. ImmGran Pct 0.3 Interpretive Data Percent cell count reference ranges are not reported, since discordance with absolute values may lead to misinterpretation of CBC data. Current Interpretive Data was last revised on 2017. Lymph Pct 36.8 Interpretive Data Percent cell count reference ranges are not reported, since discordance with absolute values may lead to misinterpretation of CBC data. Current Interpretive Data was last revised on 2017. [place] Pct 10.8 Interpretive Data Percent cell count reference ranges are not reported, since discordance with absolute values may lead to misinterpretation of CBC data. Current Interpretive Data was last revised on 2017. Eos Pct 1.9 Interpretive Data Percent cell count reference ranges are not reported, since discordance with absolute values may lead to misinterpretation of CBC data. Current Interpretive Data was last revised on 2017. Baso Pct 0.6 Interpretive Data Percent cell count reference ranges are not reported, since discordance with absolute values may lead to misinterpretation of CBC data. Current Interpretive Data was last revised on 2017. Reason For Referral Reason 08.26.2024 Simdustini A peewee J1602 dx M45.9 2mg/kg every 8 wks. medicare[facility] [place] REQUIRED Diagnosis 1 Ankylosing spondylit is of unspecified sites in spine (M45.9) Referral Organization [facility] Referring Provider First Name Sterling Referring Provider Last Name Zack Referring Provider Speciality Rheumatolo gy Referred Organization [facility] Referred Provider Sterling Dixon Referred Address [address],[place], [place],[address], Referred Provider Specialty Rheumatology Procedure 1 INJECTION GOLIMUMAB 1 MG FOR IV USE (J1602) Referral Priority Routine Medications Medication SIG (Take, Route, Frequency, Duration) Notes Start Date End Date Status Estradiol 1 MG take 1 tablet (1 mg) by oral route once daily Oral 1 Active methIMAzole oral *Pick strength-f orm from [employer] for eRX* Active Escitalopram Oxalate 20 MG take 1 tablet (20 mg) by oral route once daily Oral 1 Active Diclofenac Sodium 75 MG 1 TABLET NEEDED ORALLY TWICE A DAY NEEDED 90 DAYS; Duration: 90 Active Tylenol 8 Hour Arthritis Pain 650 MG take 2 tablets (1,300 mg) by oral route every 8 hours swallowing whole with water. Do not break, crush, dissolve and/or chew. Oral 3 Active Omeprazole 20 MG take 1 capsule (20 mg) by oral route once daily before a meal Oral 1 Active Atorvastatin Calcium 20 MG take 1 tablet (20 mg) by oral route once daily Oral 1 Active Triamcinolone Acetonide 0.1 % place a small amount to the affected area by mucous membrane route once daily at bedtime Mouth/Throat 1 08/15/2021 Active Calcium 500 + D (D3) 500-125 mg-unit take 1 tablet by oral route 2 times a day oral 2 *Reorder from [employer] for eRx and Interaction Alerts* Active Problems Problem Type SNOMED Code ICD Code Onset Dates Problem Status W/U Status Risk Notes Problem Thyrotoxicosis (48027267) Thyrotoxicosis, unspecified without thyrotoxic crisis or storm (E05.90) Active confirmed 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, 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 Problem Ankylosing spondylitis (2489401) Ankylosing spondylitis of unspecified sites in spine (M45.9) 1 Active confirmed Problem Sciatica (60174560) Sciatica, unspecified side (M54.30) Active confirmed Vital Signs Heart Rate 71 /min 01/26/2025 Temperature 97.6 degrees Fahrenheit 01/26/2025 Blood pressure diastolic 72 mm Hg 01/26/2025 Oximetry 96 % 01/26/2025 Height-cm 162.56 cm 01/26/2025 Weight-kg 64.68 kg 01/26/2025 Height 64 in 01/26/2025 Blood pressure systolic 124 mm Hg 01/26/2025 Weight 142.6 lbs 01/26/2025 BMI 24.47 kg/m2 01/26/2025 Encounters Encounter Location Date Provider Diagnosis [facility] [address] [address] [place] [address] 04/08/2024 Sterling Dixon Ankylosing spondylitis of unspecified sites in spine M45.9 [facility] [address] [facility] [address] [place] [address] 04/08/2024 Sterling Dixon Ankylosing spondylitis of unspecified sites in spine M45.9 ; Sciatica, unspecified side M54.30 and 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 Z79.899 [facility] [address] [place] [address] 06/03/2024 Sterling DiValerio Ankylosing spondylitis of unspecified sites in spine M45.9 [facility] [address] [place] [address] 07/29/2024 Sterling DiValerio Ankylosing spondylitis of unspecified sites in spine M45.9 [facility] [address] [place] [address] 09/23/2024 Sterling DiValerio Ankylosing spondylitis of unspecified sites in spine M45.9 [facility] [address] [place] [address] 09/23/2024 Sterling DiValerio Ankylosing spondylitis of unspecified sites in spine M45.9 ; Sciatica, unspecified side M54.30 and 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 Z79.899 [facility] [address] [place] [address] 11/18/2024 Sterling DiValerio Ankylosing spondylitis M45.9 [facility] [address] [place] [address] 01/26/2025 Sterling DiValerio Ankylosing spondylitis of unspecified sites in spine M45.9 ; Sciatica, unspecified side M54.30 and 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 06/03/2024 Ankylosing spondylitis of unspecified sites in spine (ICD-10 - M45.9) 07/29/2024 Ankylosing spondylitis of unspecified sites in spine (ICD-10 - M45.9) 09/23/2024 Ankylosing spondylitis of unspecified sites in spine (ICD-10 - M45.9) 09/23/2024 Ankylosing spondylitis of unspecified sites in spine (ICD-10 - M45.9) Simponi Aria infusion protocol. 11/18/2024 Ankylosing spondylitis (ICD-10 - M45.9) 01/26/2025 Ankylosing spondylitis (ICD-10 - M45.9) 01/26/2025 Ankylosing spondylitis of unspecified sites in spine (ICD-10 - M45.9) Simponi Aria infusion protocol. 01/26/2025 Sciatica, unspecified side (ICD-10 - M54.30) 09/23/2024 Sciatica, unspecified side (ICD-10 - M54.30) 04/08/2024 Sciatica, unspecified side (ICD-10 - M54.30) 04/08/2024 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 (ICD-10 - Z79.899) 09/23/2024 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 (ICD-10 - Z79.899) 01/26/2025 Other [facility] (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 (ICD-10 - Z79.899) Plan Of Treatment Pending Test Test Name Order Date CBC With Differential/Platelet CBC With Differential/Platelet Hepatic Function Panel (7) 09/02/2023 Hepatic Function Panel (7) 07/08/2023 Creatinine 07/08/2023 Creatinine 09/02/2023 Next Appt Details Provider Name:Sterling Abbasi Susan tavarez, 04/05/2025 10:00:00 AM, [address], [place], [address], Provider Name:Sterling Abbasi Jaredtimmy daysi, 04/05/2025 02:15:00 PM, [address], [place], [address], Provider Name:Sterling Abbasi Susan tavarez, 05/31/2025 10:00:00 AM, [address], [place], [address], Insurance Providers Payer Name Payer Address Payer Phone Subscriber Number Group Number Insured Name Patient Relationship to Insured Coverage Start Date Coverage End Date Medicare [address] [address] [place] [address] [id number] Vilma Carlisle Self - patient is the insured [address] [address] [phone] [id number] Vilma Carlisle Self - patient is the insured Medical (General) History Medical History History ICD Code Ankylosing spondylitis, Date of Onset: 0 12/27/2020; Hyperthyroidism; Tiffanie's disease, 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
--- OUTSIDE RECORDS SUMMARY | 2025-03-02 20:03 | XMS_ITS | Clinical Summary ---
Author Organization [facility] [employer] Address [address] [place] [address] Care Team Providers Care Wildlife Ecologist Name Role Phone Nishant Meehan MD Primary Care Provider + Source Comments [facility],non-owned Affiliates and Associated Physician Practices is amultiple site organization consisting of ambulatory clinics and hospital sitesin [place], [place], [place] and [place]. This disclosure is being madepursuant to the Care Everywhere program and may not contain all information available regarding this patient. Last updated 18.[facility] [employer] Allergies No known active allergies Medications * Be aware that medications may not be up to date on this document. Alwaysverify current medications with the patient. acetaminophen CR (Tylenol 8 Hour) 650 MG tablet Take 1 (one) tablet by mouth every 6 hours as needed Active ALPRAZolam (Xanax) 0.25 MG tablet Take 1 (one) tablet by mouth 3 times daily as needed for Anxiety 4 Active atorvastatin (Lipitor) 20 MG tablet Take 1 (one) tablet by mouth once daily Active CALCIUM PO Take 600 mg by mouth 2 times daily Active dicyclomine (Bentyl) 20 MG tablet Take 1 (one) tablet by mouth as needed 5 Active escitalopram (Lexapro) 20 MG tablet Take 1 (one) tablet by mouth once daily Active estradiol (Estrace) 0.5 MG tablet Take 2 (two) tablets by mouth once daily Active fluticasone propionate (Flonase) 50 MCG/ACT nasal spray [place] 2 (two) sprays into each nostril 2 times daily 4 Active omeprazole (PriLOSEC) 20 MG capsule Take 1 (one) capsule by mouth daily before breakfast Active diclofenac sodium EC (Voltaren) 75 MG tablet Take 1 (one) tablet by mouth 2 times daily 4 Active zolpidem (Ambien) 10 MG tablet Take 1 (one) tablet by mouth nightly as needed Active Golimumab (SIMPONI ARIA IV) 1 Each by Intravenous route as directed Active oxyCODONE, immediate release, (Roxicodone) 5 MG tabletIndicatio ns:Multinodular goiter Take 1 (one) tablet by mouth every 6 hours as needed for Pain 12 tablet 5 Active Additional Information Patient not taking.Reported on 09/15/2024 valACYclovir (Valtrex) 1 GM tablet Take 1 (one) tablet by mouth as needed 5 Active Active Problems Problem Noted Date Diagnosed Date Multinodular goiter 08/02/2024 Encounters Date Type Department Care Team Description 01/27/2025 2:55 PM CDT Ancillary Procedure [facility] - Radiology [address] [place] [phone] Christopher Cotter MD Pain in both knees, unspecified chronicity 01/27/2025 2:40 PM CDT Office Visit [facility] [address] [place] [address], [address] [place] [id number] Christopher Cotter MD Pain in both knees, unspecified chronicity (Primary Dx) from Last 3 Months Immunizations Immunization Administration Dates Next Due INFLUENZA VACCINE, TRIV. (AF LURIA, FLUZONE TRIVALENT; 6MO+) (IIV3) 03/24/2015 INFLUENZA VACCINE, QUADR. (F LUZONE; FLULAVAL; FLUARIX; AFLURIA QUADRIVALENT; 6MO+), 0.5 ML (IIV4) 02/28/2020 Social History Tobacco Use Types Packs/Day Years Used Date Smoking Tobacco: Never Smokeless Tobacco: Never Tobacco Cessation:Counseling Given: Not Answered Alcohol Use Standard Drinks/Week Comments Yes 3 (1 standard drink = 0.6 oz pur e alcohol) socially AUDIT-C Answer Date Recorded Q1: How often do you have a drink containing alc ohol? 2-4 times a month 08/30/2024 Q2: How many drinks containi ng alcohol do you have on a typical day when you are drinking? 1 or 2 08/30/2024 Q3: How often do you have si x or more drinks on one occasion? 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 SPECIALIST Gender Identity Female 01/21/2025 8:59 AM CDT Sexual Orientation Not on file Last Filed Vital Signs Vital Sign Reading Time Taken Comments Blood Pressure 123/83 09/15/2024 9:59 AM CDT Pulse 66 09/15/2024 9:59 AM CDT Temperature 36.7 C (98 F) 08/30/2024 6:26 PM CONTRACT NEGOTIATION SPECIALIST Respiratory Rate 12 08/30/2024 6:50 PM CONTRACT NEGOTIATION SPECIALIST Oxygen Saturation 93% 08/30/2024 6:50 PM CONTRACT NEGOTIATION SPECIALIST Inhaled Oxygen Concentration - - Weight 63.5 kg (140 lb) 09/15/2024 9:59 AM CDT Height 160 cm (5' 3) 09/15/2024 9:59 AM CDT Body Mass Index 24.8 09/15/2024 9:59 AM CDT Plan of Treatment Health Maintenance Due Date Last Done Comments BONE DENSITY TESTING 1955 COLOGUARD (AGES 45-75) - COL ON CA SCREENING 1955 COLON MONITORING 1955 COLONOSCOPY - COLON CA SCREENING 1955 CT COLONOGRAPHY - COLON CA SCREENING 1955 Colorectal Cancer Screening 1955 FIT - COLON CA SCREENING 1955 FLEX SIG - COLON CA SCREENING 1955 MAMMOGRAM 1955 MEDICARE AWV 12 MONTHS 1955 HEPATITIS C SCREENING 08/02/1973 DTAP/TDAP/TD VACCINES (1 - Tdap) 1974 PNEUMOCOCCAL VACCINE 50+ (1 of 1 - PCV) 2005 ZOSTER VACCINE (1 of 2) 2005 COVID-19 VACCINE (3 - 2023-2 5 season) 2024 09/09/2020, 08/12/2020 INFLUENZA VACCINE (#1) 2025 , 03/24/2015 Respiratory Syncytial Virus (RSV) Vaccine Pt: or over 60 yrs (1 - 1-dose 75+ series) 2030 DEPRESSION SCREENING Completed 01/27/2025 HEPATITIS B VACCINE Aged Out No longe r eligible based on patient's age to complete this topic HIB VACCINE Aged Out No longer eligi ble based on patient's age to complete this topic HPV VACCINE Aged Out No longer eligi ble based on patient's age to complete this topic MENINGOCOCCAL (Group B) VACCINE SHARED DECISION-MAKING Aged Out No longer eligible based on patient's age to complete this topic MENINGOCOCCAL GROUPS A/C/Y/W VACCINE Aged Out No longer eligible b ased on patient's age to complete this topic Procedures Procedure Name Priority Date/Time Associated Diagnosis Comments XR KNEE BILAT 3VW Routine 01/27/2025 2:5 7 PM CDT Pain in both knees, unspecified chronicity from Last 3 Months Results * XR Knee Bilat 3Vw (01/27/2025 2:57 PM CDT) Narrative [facility] [address] - 01/27/2025 2:57 PM CDT Please see progress note in Epic for results. us Christopher Cotter MD DIAGNOSTIC IMAGING ORDERABLES Final Result [facility] [address] from Last 3 Months Insurance MEDICARE [facility] [place] [address] Care Teams Wildlife Ecologist Relationship Specialty Start Date End Date Nishant Meehan MD [address] [place] [address] PCP - General 10/20/15
[2025-03-02 20:11] VITALS: BP 154/64; PULSE 63; RESP 16; TEMP 36.7; O2SAT 97
[2025-03-02 20:48] LABS: Hematocrit 38.5 % (37.0-47.0); Hemoglobin 12.1 g/dL (12.0-15.0); Immature Granulocyte Percent A 0.2 % (0-0.5); Lymphocytes Absolute Auto 3.25 K/mm3 (0.9-3.2); Mean Corpuscular HGB Conc 31.4 g/dl (32-36); Mean Corpuscular Hemoglobin 29.1 pg (26-34); Mean Corpuscular Volume 92.5 fl (80-100); Nucleated Red Blood Cells Absolute Auto 0.000 K/mm3 (0.0-0.012); Nucleated Red Blood Cells Perc 0.0 % (0.0-0.2); Platelet Count Result 324 k/mm3 (150-375); Red Blood Count 4.16 M/mm3 (4.2-5.4); White Blood Count 10.0 K/mm3 (4.5-10.0)
[2025-03-02 20:52] LABS: Alanine Aminotransferase 21 U/L (6-35); Albumin Level 4.1 g/dL (3.5-5.1); Alkaline Phosphatase 85 U/L (38-126); Anion Gap 8 mmol/L (4-12); Aspartate Amino Transferase 26 U/L (14-36); Bilirubin,Total 0.7 mg/dL (0.2-1.3); Blood Urea Nitrogen 15 mg/dL (7-17); Calcium 9.0 mg/dL (8.4-10.2); Carbon Dioxide 24 mmol/L (22-30); Chloride 104 mmol/L (98-107); Estimated CRCL calculation 40 ml/min; Estimated Glomerular Filt Rate 60; Glucose 92 mg/dL (65-110); Lipase 43 U/L (23-300); Potassium 3.6 mmol/L (3.4-5.0); Sodium 136 mmol/L (137-145); Total Protein 7.1 g/dL (6.3-8.2)
[2025-03-02 20:53] LABS: Add Urine Microscopic? YES; Appearance Urine Cloudy (Clear); Glucose Urine UA Negative (Negative); Leukocyte Esterase Ur Negative LEU/UL (Negative); Nitrate Urine Negative (Negative); Non Pathogenic Casts 0-2; Specific Grav Ur 1.011 (1.001-1.035)
[2025-03-02] MEDS: SODIUM CHLORIDE 0.9% IV 1,000 ML 999 ML IV CONT (21:10)
[2025-03-02] MEDS: METOCLOPRAMIDE HCL 10 MG TABLET PO (21:11)
--- NOTE | 2025-03-02 21:12 | ED_ITS ---
HPI - Abdominal Pain General Chief Complaint: Abdominal Pain Stated Complaint: stomach cramps, abdominal pain, vomit, diarrhea Time Seen by Provider: 03/02/25 20:51 History of Present Illness HPI narrative: this is a 69-year-old female with history of depression, hyperlipidemia, TMJ who presents to the ED for abdominal pain. Patient states that for the past 2 days, she has been having diffuse cramping abdominal pain with nausea and vomiting. She states that about 10 days ago, she did start some include tied. She has also had a couple episodes of watery diarrhea. Denies fevers, chest pain, shortness of breath, rashes, changes in urination. Related Data Home Medications ?Medication ?Instructions ?Recorded ?Confirmed ?Last Taken ?Type calcium carbonate (Calcium 600) 600 mg PO BID 03/22/21 01/27/25 Unknown History golimumab 12.5 mg/mL intravenous See Rx Instructions . Route .COMPLEX 03/22/21 01/27/25 Unknown History solution (Simponi ARIA) acetaminophen 650 mg 650 mg PO Q12H PRN Pain 04/3001/27/25 Unknown History tablet,extended release (Tylenol Arthritis Pain) diclofenac sodium 75 mg 75 mg PO BID 04/06/24 Unknown History tablet,delayed release dicyclomine 20 mg tablet 20 mg PO BID PRN 01/27/25 Unknown History Allergies Allergy/AdvReac Type Severity Reaction Status Date / Time No Known Allergies Allergy Verified 01/27/25 09:29 Review of Systems 2 Review of Systems: Gen.: Denies fevers or chills Eyes: Denies eye pain or visual change ENT: Denies congestion Respiratory: Denies shortness of breath or cough CV: Denies chest pain or palpitations GI: As per HPI denies burning, urgency, frequency or hematuria Musculoskeletal: Denies back pain or muscle pain Neuro: Denies numbness, tingling, weakness or focal weakness Skin: Denies rash Except as documented, all other systems reviewed and negative [facility] Past Medical History Medical History Palpitations Normal colonoscopy 04/[facility] Osteopenia Ankylosing spondylitis Thyrotoxicosis, unspecified without thyrotoxic crisis or storm Major depressive disorder, recurrent, mild History of depression History of gastroesophageal reflux (GERD) Surgical History Surgical History History of thyroid surgery History of cholecystectomy History of hysterectomy Family History Family History Sibling Family history of coronary artery disease Mother Family history of malignant neoplasm of breast in first degree relative Hypertension Social History Social History Smoking packs per day: 1 Smoking cigarettes per day: 20.0 Years smoked: 20 Smoking pack-years: 20.00 Smoking status: Former smoker Tobacco type: cigarettes Second hand tobacco smoke exposure: No Smoking end date: 12/28/01 Alcohol intake: current Drinks per week: 2 Substance use: never Do You Feel Safe in your Home?: Yes Lack of Transportation: No Lack of Food: Never True Current Housing: I Have Housing Concerned About Future Housing: No Difficulty Paying Gas/Electric Bills: No Difficulty Paying for Meds: No Currently Unemployed: No Education: Associate Degree Difficulty w/ Childcare or Family Care: No Living arrangements: with family Additional living arrangements comments: [facility] Gender identity (if verbalized by the patient): Female Spiritual care concerns: No Exam 2 Narrative: APPEARANCE: No acute distress, nontoxic, resting in bed EYES: EOMI HEENT: Normocephalic, atraumatic, OMM RESPIRATORY: No respiratory distress Clear to auscultation bilaterally with no rhonchi wheezing or rales. CARDIOVASCULAR: Regular rate and rhythm without murmurs rubs or gallops. ABDOMINAL: Soft, mild diffuse tenderness to palpation without rebound or guarding MUSCULOSKELETAl: Moves all extremities. No clubbing, cyanosis or edema. NEURO: Awake and alert. Following commands, speech normal, no focal deficits SKIN:: Warm, dry. No rashes lesions or abrasions PSYCHIATRIC: Normal affect/mood, Course Vital Signs Vital signs: Vital Signs Temperature 98.0 F 03/02/25 20:11 Pulse Rate 63 03/02/25 20:11 Respiratory Rate 16 03/02/25 20:11 Blood Pressure 154/64 H 03/02/25 20:11 Pulse Oximetry 97 03/02/25 20:11 Oxygen Delivery Room Air 03/02/25 20:11 Temperature 98.0 F 03/02/25 20:11 Pulse Rate 68 03/02/25 23:25 Respiratory Rate 17 03/02/25 23:25 Blood Pressure 145/60 H 03/02/25 23:25 Pulse Oximetry 98 03/02/25 23:25 Oxygen Delivery Room Air 03/02/25 20:11 MDM - Abdominal Pain MDM Narrative Medical decision making narrative: 69-year-old female that presented to the ED for diffuse abdominal pain. On initial evaluation, patient was in no acute distress, afebrile, hemodynamically stable. She did have diffuse tenderness to palpation without rebound or guarding. CBC and CMP were without significant abnormalities. UA clear. CT abdomen / pelvis did show evidence of colitis. Patient was given a prescription for Bentyl and Zofran. She was educated on bland diet, good p.o. hydration and pain control. She was advised follow-up with PCP next week for re-evaluation. Patient was agreeable to this plan. Given return precautions. Differential Diagnosis Differential diagnosis: Likely other ( Medication side effect, electrolyte abnormality, gastroenteritis, pancreatitis, UTI) Medical Records Attestation: I reviewed the patient's medical records. Lab Data Attestation: I reviewed the patient's lab results. 03/02/25 20:34 03/02/25 20:34 Labs: Lab Results 03/02/25 Range/Units 20:34 WBC 10.0 (4.5-10.0) K/mm3 RBC 4.16 L (4.2-5.4) M/mm3 Hgb 12.1 (12.0-15.0) g/dL Hct 38.5 (37.0-47.0) % MCV 92.5 (80-100) fl MCH 29.1 (26-34) pg MCHC 31.4 L (32-36) g/dl RDW 14.5 (11.5-14.5) % Plt Count 324 (150-375) k/mm3 MPV 10.3 (7.4-10.4) fl Immature Gran % (Auto) 0.2 (0-0.5) % Neut % (Auto) 53.8 (45.5-73.1) % Lymph % (Auto) 32.6 (18.3-44.2) % [place] % (Auto) 11.5 H (2.6-8.5) % Eos % (Auto) 1.3 (0-4.4) % Baso % (Auto) 0.6 (0.2-1.2) % Lymph # (Auto) 3.25 H (0.9-3.2) K/mm3 [place] # (Auto) 1.2 H (0.1-0.6) K/mm3 Eos # (Auto) 0.1 (0-0.3) K/mm3 Baso # (Auto) 0.1 (0.0-0.1) K/mm3 Abs Immat Gran (auto) 0.02 (0.00-0.031) K/mm3 Absolute Neuts (auto) 5.4 (1.3-6.7) K/mm3 Absolute Nucleated RBC 0.000 (0.0-0.012) K/mm3 Nucleated RBC % 0.0 (0.0-0.2) % Sodium 136 L (137-145) mmol/L Potassium 3.6 (3.4-5.0) mmol/L Chloride 104 (98-107) mmol/L Carbon Dioxide 24 (22-30) mmol/L Anion Gap 8 (4-12) mmol/L BUN 15 D (7-17) mg/dL Creatinine 0.93 (0.7-1.0) mg/dL Estim Creat Clear Calc 40 ml/min Estimated GFR 60 (59 - ) Glucose 92 (65-110) mg/dL Calcium 9.0 (8.4-10.2) mg/dL Total Bilirubin 0.7 (0.2-1.3) mg/dL AST 26 (14-36) U/L ALT 21 (6-35) U/L Alkaline Phosphatase 85 (38-126) U/L Total Protein 7.1 (6.3-8.2) g/dL Albumin 4.1 (3.5-5.1) g/dL Lipase 43 (23-300) U/L Urine Color Yellow (Yellow) Urine Appearance Cloudy H (Clear) Urine pH 5.5 (5.0-9.0) Ur Specific [place] 1.011 (1.001-1.035) Urine Protein Negative (Negative) mg/dL Urine Glucose (UA) Negative (Negative) mg/dL Urine Ketones Trace H (Negative) mg/dL Ur Blood (Man) Trace (Negative) Urine Nitrate Negative (Negative) Urine Bilirubin Negative (Negative) Urine Urobilinogen 0.2 (<2.0) mg/dL Leukocyte Esterase Rfl Negative (Negative) JERRY/UL Urine RBC 0-2 (0-2) /hpf Urine WBC 0-5 (0-3) /hpf Ur Squamous Epith Cells None seen (Few) /hpf Urine Bacteria None seen /hpf Urine Casts 0-2 Imaging Data Radiologist's impression: V rad read: Multi segmental probable colitis Discharge Plan Discharge Clinical Impression: Colitis Patient Disposition: Home Condition: Stable Instructions: Antibiotic Form, Colitis (ED) Additional Instructions: CT scan showed evidence of colitis. This is treated supportively. He will be given prescriptions for Bentyl and Zofran, take these as prescribed. Continue to push plenty of fluids. Try a bland diet. Follow up with a PCP in the next week for re-evaluation. Return to the ED for any new or worsening symptoms. Patient Language: Danish Prescriptions: New dicyclomine 10 mg capsule 10 mg PO TID PRN (Reason: abdominal pain) Qty: 30 0RF ondansetron 4 mg tablet,disintegrating 4 mg PO Q8H PRN (Reason: nausea and vomiting) Qty: 20 0RF No Action diclofenac sodium 75 mg tablet,delayed release (DR/EC) 75 mg PO BID dicyclomine 20 mg tablet 20 mg PO BID PRN calcium carbonate [Calcium 600] 600 mg calcium (1,500 mg) tablet 600 mg PO BID Simponi ARIA 12.5 mg/mL solution See Rx Instructions .ROUTE .COMPLEX Rx Instructions: 1 INFUSION EVERY EVERY 8 WEEKS acetaminophen [Tylenol Arthritis Pain] 650 mg Tablet Extended Release 650 mg PO Q12H PRN (Reason: Pain) zolpidem 10 mg tablet 10 mg PO QHS Qty: 90 1RF alprazolam 0.25 mg tablet 0.25 mg PO TID PRN (Reason: anxiety) Qty: 20 1RF omeprazole 20 mg capsule,delayed release(DR/EC) See Rx Instructions .ROUTE .COMPLEX Qty: 90 3RF Dose Instruction: TAKE 1 CAPSULE BY MOUTH EVERY DAY Rx Instructions: TAKE 1 CAPSULE BY MOUTH EVERY DAY atorvastatin 20 mg tablet See Rx Instructions .ROUTE .COMPLEX Qty: 90 2RF Dose Instruction: TAKE 1 TABLET BY MOUTH EVERY DAY Rx Instructions: TAKE 1 TABLET BY MOUTH EVERY DAY fluticasone propionate 50 mcg/actuation spray,suspension See Rx Instructions .ROUTE .COMPLEX PRN (Reason: Congestion) Qty: 48 2RF Rx Instructions: INSTILL 2 SPRAY INTO EACH NOSTRIL TWICE A DAY escitalopram oxalate 20 mg tablet See Rx Instructions .ROUTE .COMPLEX Qty: 90 2RF Dose Instruction: TAKE 1 TABLET BY MOUTH EVERY DAY IN THE MORNING Rx Instructions: TAKE 1 TABLET BY MOUTH EVERY DAY IN THE MORNING estradiol 1 mg tablet 1 mg PO DAILY Qty: 90 3RF sumatriptan succinate 50 mg tablet See Rx Instructions .ROUTE .COMPLEX Qty: 18 1RF Dose Instruction: 1 TAB AT ONSET OF HEADACHE MAY REPEAT ONCE AFTER AT LEAST 2 HOUR IF NO RELIEF-MAX PER 24 HOUR: 4 TAB Rx Instructions: 1 TAB AT ONSET OF HEADACHE MAY REPEAT ONCE AFTER AT LEAST 2 HOUR IF NO RELIEF-MAX PER 24 HOUR: 4 TAB Follow-up/Referrals: Nishant Meehan MD [Primary Care Provider, Family Practice]
[2025-03-02 21:35] VITALS: BP 147/58; PULSE 67; RESP 17; O2SAT 98
[2025-03-02 23:25] VITALS: BP 145/60; PULSE 68; RESP 17; O2SAT 98
[2025-03-02] MEDS: DICYCLOMINE HCL 10 MG CAPSULE PO (23:38)
--- NOTE | 2025-03-02 23:38 | PC.NURSE ---
EDP Dr. Jermaine EPSTEIN 10mg PO bentyl. orders placed by this rn.
== END 2025-03-02 23:31 | disposition home or self-care (01) ==
PROVIDERS: Emergency Provider Student in an Organized Health Care Education/Training Program; PCP Family Medicine Adolescent Medicine
DX: K52.9 Noninfective gastroenteritis and colitis, unspecified (principal); M85.80 Other specified disorders of bone density and structure, unspecified site; K21.9 Gastro-esophageal reflux disease without esophagitis; F32.A Depression, unspecified; Z87.891 Personal history of nicotine dependence; Z90.710 Acquired absence of both cervix and uterus; Z90.49 Acquired absence of other specified parts of digestive tract; Z79.899 Other long term (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
CPT/HCPCS: 36415; 74177; 80053; 81001; 83690; 85025; 96360; 99284; A9270; J7030; Q9967

== ENCOUNTER 2025-04-05 07:11 | Outpatient (CLI) | payer MEDICARE, OTHER, SELFPAY ==
--- NOTE | ~2025-04-05 | MM_ITS ---
EXAMINATION: MM screening sahil BI w nicky HISTORY: Screening TECHNIQUE: Craniocaudal and mediolateral oblique 3-D tomosynthesis images were obtained and synthetic 2-D images were generated. CAD analysis was submitted and interpreted. COMPARISON: Comparison to multiple prior studies sequentially, with oldest reviewed study dated , 04/10/2018 BREAST PARENCHYMAL COMPOSITION: There are scattered areas of fibroglandular density. FINDINGS: There is no evidence of suspicious mass, calcification, or architectural distortion to suggest malignancy in either breast. IMPRESSION: 1. No mammographic evidence of malignancy. 2. Recommend routine screening mammography in one year. BI-RADS Category 1: Negative Reviewed, dictated and finalized at location B.
== END 2025-04-05 07:12 | disposition home or self-care (01) ==
PROVIDERS: PCP Family Medicine; Visit Provider Obstetrics & Gynecology
DX: Z12.31 Encounter for screening mammogram for malignant neoplasm of breast (principal)
CPT/HCPCS: 77063; 77067

== ENCOUNTER 2025-06-06 01:08 | Day surgery (SDC) | payer MEDICARE, OTHER, SELFPAY ==
--- OUTSIDE RECORDS SUMMARY | 2025-04-05 08:15 | XMS_ITS ---
Author Organization [facility] kb Address [address] [place] [address] Care Team Providers Care Customer Professional Name Role Phone Nishant Simms MD Primary Care Provider Unav ailable Sterling Dixon Unavailable [phone] Sterling Dixon MD Unavailable Unavailabl e Allergies No Known Allergies REASON FOR VISIT follow up with infusion Encounters Encounter Location Date Provider Diagnosis [facility] [address] [place] [address] 04/05/2025 Sterling Dixon Ankylosing spondylitis of unspecified sites in spine M45.9 ; Sciatica, unspecified side M54.30 and Other 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 (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 Z79.899 Assessments Encounter Date Diagnosis (ICD Code) Assessment Notes Treatment Notes Treatment Clinical Notes Section Notes 04/05/2025 Ankylosing spondylitis of unspecified sites in spine (ICD-10 - M45.9) [facility] infusion protocol. 04/05/2025 Sciatica, unspecified side (ICD-10 - M54.30) 04/05/2025 Other extermination supervisor (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 (ICD-10 - Z79.899) Plan Of Treatment Treatment Notes Assessment Notes Ankylosing spondylitis of unspecified si leela in spine [facility] infusion protocol. Next Appt Details Follow Up: 4 Months, Reason: Provider Name:Sterling tavarez, 07/26/2025 11:00:00 AM, [address], [place], [address], Provider Name:Sterling tavarez, 09/20/2025 11:00:00 AM, [address] [facility] [address], [place], [address], Provider Name:Sterling tavarez, 09/20/2025 11:00:00 AM, [address], [place], [address], Progress Notes * Vilma CARLISLE ADOB:1955 (69 yo F)Acc No.[id number]:04/05/2025 Progress Notes Patient: Vilma BLAS Appointment Provider: Elizabet Dixon MD :1955 A ge:69 Y S ex:Female Date:04/05/2025 Address:[address] [place], [place] [id number] Pcp:Nishant Simms MD Subjective: * Chief Complaints: * 1 . Follow up with infusion. * HPI: A dvance Care Planning: No acute joint swelling. No significant AM stiffness, gelling. No significant rash, bruises. No cough, SOB. No F/C/S. No GI upset. Bowels working. Energy and sleep are OK. Tolerates meds. BP listed. Wt. and appetite stable. * ROS: E nergy OK. Sleep OK . 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 * Surgical History: H ysterectomy; 2014-06-14, cholecystectomy; 2014-06-14, Back surgery; 2019-01-13. * Family History: M igrated Family History: New pt-No hx to enter . 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 * Allergies: N .K.D.A. Objective: * Vitals: * Examination: G eneral Examination: P hysical Examination Constitutional Appearance : well nourished, alert, in no acute distress Head and Face/Head : NC/AT Inspection : normocephalic, atraumatic Eyes/Conjunctivae : conjunctiva normal Sclerae : sclera white Psychiatric/Judgment and Insight : judgment and insight intact Mood and Affect : mood normal, affect appropriate Cervical Spine: normal curvatures Right Upper Extremity Hand : NS Left Upper Extremity Hand : NS Gait: gait normal . Assessment: * Assessment: 1. A nkylosing spondylitis of unspecified sites in spine - M45.9 (Primary) S pecify :Src Problem: Ankylosing spondylitis 2 . S ciatica, unspecified side - M54.30 S pecify :Src Problem: Sciatica 3 . O ther 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 (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 - Z79.899 Plan: * Treatment: * Follow Up: 4 Months * Billing Information: * Visit Code: 41981 Office Visit, Est Pt., Level 4. * Procedure Codes: * Electronic signature of Junior Dixon MD on 06/06/2025 at 01:11 AM RESIDENTIAL DOOR INSTALLER Sign off status: Pending * Appointment Provider: Elizabet Dixon MD Date: 1 Generated for Printing/Faxing/eTransmitting on: 2024 01:11 AM RESIDENTIAL DOOR INSTALLER History and Physical Notes * Examination Category Sub-Category Detail Notes Category Not es General Examination Physical Examination Constitutional Appearance : well nourished, alert, in no acute distress Head and Face/Head : NC/AT Inspection : normocephalic, atraumatic Eyes/Conjunctivae : conjunctiva normal Sclerae : sclera white Psychiatric/Judgment and Insight : judgment and insight intact Mood and Affect : mood normal, affect appropriate Cervical Spine: normal curvatures Right Upper Extremity Hand : NS Left Upper Extremity Hand : NS Gait: gait normal
[2025-06-02 12:35] VITALS: BMI 26.2
--- OUTSIDE RECORDS SUMMARY | 2025-06-06 01:10 | XMS_ITS | Clinical Summary ---
Author Organization [facility] Address [address] [facility] [address] [place] [address] Phone Care Team Providers Care As400 Analyst Name Role Phone Nishant Meehan MD Primary Care Provider + Leonel Bartlett DO Unavailable [phone] Allergies No known active allergies Medications [...] Virus (RSV) Immunization (Adult) (1 - Risk 50-74 years 1-dose series) 2005 Medicare Initial AWV [id number] 07/31/2021 Influenza Immunization (#1) 02/28/202503/01, 02/28/2020, 03/24/2015, Additional history exists SARS-COV-2 Immunization ( season) 2025 10/02/2021, 02/15/2021, 09/09/2020, Additional history [...] Maintenance Results * COLONOSCOPY (10/12/2015) us Leonel Elizabeth Bartlett DO PROCEDURE/MINOR SURGICAL ORDERA BLES Final Result from Last 3 Months or Most Recently Relevant to Health Maintenance Insurance MEDICARE [employer] Care Teams As400 Analyst Relationship Specialty Start Date End Date Nishant Meehan MD PCP - General Family Medicine 08/10/15 Leonel Bartlett DO Gastroenterology 10/31/15
--- OUTSIDE RECORDS SUMMARY | 2025-06-06 01:10 | XMS_ITS | Clinical Summary ---
Author Organization [facility] Address [address] [place] [address] Care Team Providers Care Secondary Art Teacher Name Role Phone Nishant Meehan MD Primary Care Prov ider Missy Rdz MD Unavailable [phone] Ryan Ghosh MD Unavailable [phone] Allergies No known active allergies Medications zolpidem [...] Encounters Date Type Department Care Team Description 05/31/2025 8:05 PM FIELD SOFTWARE ENGINEER - 05/31/2025 11:59 PM FIELD SOFTWARE ENGINEER Hospital Encounter [address] [address] Discharge Disposition: Discharge to home or self care 04/07/2025 4:42 PM CDT - 04/07/2025 11:59 PM CDT Hospital Encounter [address] [address] Discharge Disposition: Discharge to home or self care from Last 3 Months Surgical History Surgery [...] on file Legal Sex Female 11:32 PM FIELD SOFTWARE ENGINEER Gender Identity Not on file Sexual Orientation [...] Mass Index 24.01 03/02/2025 7:11 PM CDT Plan of Treatment Health Maintenance Due Date Last Done Comments Breast Cancer Screening-Mammogram 1955 Colon Cancer Screening-Colonoscopy 1955 Depression Screening 1955 Hepatitis C Screening 1955 Osteoporosis Screening-Bone Density Scan 1955 DTaP/Tdap/Td Vaccine (1 - Tdap) 1966 Hepatitis B Screening 1973 Lung Cancer Screening 2005 Pneumococcal vaccine 65+ (1 of 1 - PCV) 2005 Zoster Vaccine (1 of 2) 2005 Well Visit 65+ 2020 Covid-19 Vaccine (2024-2 6 season) 2025 03/06/2022, 10/02/2021, 02/15/2021, Additional history exists Influenza Vaccine (#1) 2025 4, 03/06/2022, 03/27/2021, Additional history exists Fall Risk Assessment 07/06/2025 07/06/2024 Procedures Procedure Name Priority Date/Time Associated Diagnosis Comments EGFR Routine 05/31/2025 10:15 AM FIELD SOFTWARE ENGINEER DIFFERENTIAL AUTO Routine 05/31/2025 10: 15 AM FIELD SOFTWARE ENGINEER TB TEST, QUANTIFERON GOLD Routine 05/31/2025 10:15 AM FIELD SOFTWARE ENGINEER HEPATIC FUNCTION PANEL Routine 05/31/2025 10:15 AM FIELD SOFTWARE ENGINEER CREATININE Routine 05/31/2025 10:15 AM FIELD SOFTWARE ENGINEER CBC WITH AUTO DIFFERENTIAL Routine 05/31/2025 10:15 AM FIELD SOFTWARE ENGINEER IRON PROFILE W/ IBC Routine 04/07/2025 1 :00 PM CDT FERRITIN Routine 04/07/2025 1:00 PM CDT EGFR Routine 04/07/2025 1:00 PM CDT DIFFERENTIAL AUTO Routine 04/07/2025 1:0 0 PM CDT HEPATIC FUNCTION PANEL Routine 04/07/2025 1:00 PM CDT CREATININE Routine 04/07/2025 1:00 PM CDT CBC WITH AUTO DIFFERENTIAL Routine 04/07/2025 1:00 PM CDT from Last 3 Months Results * eGFR (05/31/2025 10:15 AM FIELD SOFTWARE ENGINEER) Pathologist [facility] eGFR 88 >=60 mL/min/1. 73 m2 Comment: Interpretive Data Reference Interval Normal >/= 90 [...] interpretive data was last reviewed 2021. Blood 05/31/2025 10:1 5 AM FIELD SOFTWARE ENGINEER 05/31/2025 9:02 PM FIELD SOFTWARE ENGINEER us Sterling Sandoval MD LAB BLOOD ORDERABLES Fin al Result [facility] [address] [place] [address] * Differential, auto (05/31/2025 10:15 AM FIELD SOFTWARE ENGINEER) [facility] Neutrophil abs 3.88 1.50 - 6.50 K/cumm Imm gran abs 0.02 0.00 - 0.10 K/cumm [facility] Lymphocyte abs 2.48 0.80 - 3.30 K/cumm [facility] Monocyte abs 0.60 0.20 - 0.80 K/cumm [facility] Eosinophil abs 0.16 0.00 - 0.50 K/cumm [facility] Basophil abs 0.04 0.00 - 0.10 K/cumm [facility] Neutrophil pct 54.0 % [facility] Comment: Interpretive Data Percent cell count reference ranges are not reported, since discordance with absolute values may lead to misinterpretation of CBC data. Current Interpretive Data was last revised on 2017. Imm gran pct 0.3 % [facility] Comment: Interpretive Data Percent cell count reference ranges are not reported, since discordance with absolute values may lead to misinterpretation of CBC data. Current Interpretive Data was last revised on 2017. Lymphocyte pct 34.5 % [facility] Comment: Interpretive Data Percent cell count reference ranges are not reported, since discordance with absolute values may lead to misinterpretation of CBC data. Current Interpretive Data was last revised on 2017. Monocyte pct 8.4 % [facility] Comment: Interpretive Data Percent cell count reference ranges are not reported, since discordance with absolute values may lead to misinterpretation of CBC data. Current Interpretive Data was last revised on 2017. Eosinophil pct 2.2 % [facility] Comment: Interpretive Data Percent cell count reference ranges are not reported, since discordance with absolute values may lead to misinterpretation of CBC data. Current Interpretive Data was last revised on 2017. Basophil pct 0.6 % [facility] Comment: Interpretive Data Percent cell count reference ranges are not reported, since discordance with absolute values may lead to misinterpretation of CBC data. Current Interpretive Data was last revised on 2017. Blood 05/31/2025 10:1 5 AM FIELD SOFTWARE ENGINEER 05/31/2025 8:42 PM FIELD SOFTWARE ENGINEER Sterling Sandoval MD LAB BLOOD ORDERABLES Fin al Result [facility] [address] [place] [address] * TB test, quantiferon gold (05/31/2025 10:15 AM FIELD SOFTWARE ENGINEER) [facility] Quantiferon TB Gold Negative Negative [facility] Comment: No interferon-gamma response to M. tuberculosis antigens was detected. Latent infection with M. tuberculosis is unlikely. A single negative result does not exclude infection with M. tuberculosis. In patients at high risk for M.tuberculosis infection, a second test should be considered in accordance with the 2017 ATS/IDSA/CDC Clinical Practice Guidelines for Diagnosis of Tuberculosis in Adults and Children [Casandra CRUZ et. al. Clin. Infect. Dis. 2017;64(2):111-115]. The reference range for the 'TB1 Ag minus Nil Result' and 'TB2 Ag minus Nil Result' is an Interferon-gamma level <0.35 IU/mL. TB-Nil 0.00 IUnits/mL [facility] TB2-Nil 0.00 IUnits/mL [facility] Mitogen-Nil >10.00 IUnits/mL [facility] NIL 0.02 IUnits/mL [facility] Comment: Test Performed by: [facility] [address] [id number] [employer] Ambassador: Rama Sanchez Ph.D.; CLIA# [id number] Blood 05/31/2025 10:1 5 AM FIELD SOFTWARE ENGINEER 05/31/2025 9:15 PM FIELD SOFTWARE ENGINEER Sterling Sandoval MD LAB BLOOD ORDERABLES Fin al Result [facility] [address] Department [place] [address] [place] [facility] * (ABNORMAL) CBC with auto differential (05/31/2025 10:15 AM FIELD SOFTWARE ENGINEER) Pathologist [facility] WBC 7.18 3.80 - 9.90 K/cumm Hgb 12.0 11.9 - 15.5 g/dL [facility] Hct 38.0 35.6 - 45.5 % [facility] Plt 272 150 - 400 K/cumm [facility] MPV 11.4 9.1 - 12.3 fL [facility] RBC 3.92 3.90 - 5.20 M/cumm [facility] MCV 96.9(H) 81.3 - 96.4 fL [facility] MCH 30.6 27.1 - 33.3 pg [facility] MCHC 31.6(L) 32.3 - 35.7 g/dL [facility] RDW CV 14.6 11.1 - 14.9 % [facility] RDW SD 52.6(H) 35.7 - 48.1 fL [facility] NRBC abs 0.00 0.00 - 0.01 K/cumm [facility] Blood 05/31/2025 10:1 5 AM FIELD SOFTWARE ENGINEER 05/31/2025 8:42 PM FIELD SOFTWARE ENGINEER Sterling Sandoval MD LAB BLOOD ORDERABLES Fin al Result Performing Organization Address [facility] de Phone Number [facility] [address] Department [place] [address] * Creatinine (05/31/2025 10:15 AM FIELD SOFTWARE ENGINEER) Pathologist [facility] Creatinine 0.74 0.60 - 1.10 mg/dL Blood 05/31/2025 10:1 5 AM FIELD SOFTWARE ENGINEER 05/31/2025 8:42 PM FIELD SOFTWARE ENGINEER Sterling Sandoval MD LAB BLOOD ORDERABLES Fin al Result Performing Organization Address [facility] de Phone Number [facility] [address] Department [place] [address] * (ABNORMAL) Hepatic function panel (05/31/2025 10:15 AM FIELD SOFTWARE ENGINEER) Bilirubin, total 0.4 0.1 - 1.2 mg/dL Bilirubin, direct <0.2 0.1 - 0.3 mg/dL [facility] Protein, pl 6.4(L) 6.5 - 8.5 g/dL [facility] Albumin 3.8 3.5 - 5.0 g/dL [facility] Alk phos 67 40 - 130 Units/L [facility] ALT 18 7 - 45 Units/L [facility] AST 16 10 - 45 Units/L [facility] Blood 05/31/2025 10:1 5 AM FIELD SOFTWARE ENGINEER 05/31/2025 8:42 PM FIELD SOFTWARE ENGINEER Sterling Sandoval MD LAB BLOOD ORDERABLES Fin al Result [facility] [address] Department [place] [address] * eGFR (04/07/2025 1:00 PM CDT) Pathologist [facility] eGFR 76 >=60 mL/min/1. 73 m2 Comment: Interpretive Data Reference Interval Normal >/= 90 [...] interpretive data was last reviewed 2021. Blood 04/07/2025 1:00 PM CDT 04/07/2025 7:13 PM CDT us Sterling Sandoval MD LAB BLOOD ORDERABLES Fin al Result [facility] [address] Department [place] [address] * Differential, auto (04/07/2025 1:00 PM CDT) Pathologist [facility] Neutrophil abs 2.60 1.50 - 6.50 K/cumm Imm gran abs 0.02 0.00 - 0.10 K/cumm [facility] Lymphocyte abs 2.52 0.80 - 3.30 K/cumm [facility] Monocyte abs 0.46 0.20 - 0.80 K/cumm [facility] Eosinophil abs 0.18 0.00 - 0.50 K/cumm [facility] Basophil abs 0.06 0.00 - 0.10 K/cumm [facility] Neutrophil pct 44.5 % [facility] Comment: Interpretive Data Percent cell count reference ranges are not reported, since discordance with absolute values may lead to misinterpretation of CBC data. Current Interpretive Data was last revised on 2017. Imm gran pct 0.3 % [facility] Comment: Interpretive Data Percent cell count reference ranges are not reported, since discordance with absolute values may lead to misinterpretation of CBC data. Current Interpretive Data was last revised on 2017. Lymphocyte pct 43.2 % [facility] Comment: Interpretive Data Percent cell count reference ranges are not reported, since discordance with absolute values may lead to misinterpretation of CBC data. Current Interpretive Data was last revised on 2017. Monocyte pct 7.9 % [facility] Comment: Interpretive Data Percent cell count reference ranges are not reported, since discordance with absolute values may lead to misinterpretation of CBC data. Current Interpretive Data was last revised on 2017. Eosinophil pct 3.1 % [facility] Comment: Interpretive Data Percent cell count reference ranges are not reported, since discordance with absolute values may lead to misinterpretation of CBC data. Current Interpretive Data was last revised on 2017. Basophil pct 1.0 % [facility] Comment: Interpretive Data Percent cell count reference ranges are not reported, since discordance with absolute values may lead to misinterpretation of CBC data. Current Interpretive Data was last revised on 2017. Blood 04/07/2025 1:00 PM CDT 04/07/2025 5:04 PM CDT us Sterling Sandoval MD LAB BLOOD ORDERABLES Fin al Result [facility] [address] Department [place] [address] * Iron profile w/ IBC (04/07/2025 1:00 PM CDT) Iron 114 35 - 145 mcg/dL TIBC 330 250 - 400 mcg/dL [facility] Transferrin saturation 35 20 - 50 % [facility] Blood 04/07/2025 1:00 PM CDT 04/07/2025 7:13 PM CDT Sterling Sandoval MD LAB BLOOD ORDERABLES Fin al Result Performing Organization Address [facility] Co de Phone Number [facility] [address] [place] [place] [address] * (ABNORMAL) CBC with auto differential (04/07/2025 1:00 PM CDT) [facility] WBC 5.84 3.80 - 9.90 K/cumm Hgb 11.6(L) 11.9 - 15.5 g/dL [facility] Hct 39.5 35.6 - 45.5 % [facility] Plt 264 150 - 400 K/cumm [facility] MPV 11.2 9.1 - 12.3 fL [facility] RBC 3.97 3.90 - 5.20 M/cumm [facility] MCV 99.5(H) 81.3 - 96.4 fL [facility] MCH 29.2 27.1 - 33.3 pg [facility] MCHC 29.4(L) 32.3 - 35.7 g/dL [facility] RDW CV 15.1(H) 11.1 - 14.9 % [facility] RDW SD 55.8(H) 35.7 - 48.1 fL [facility] NRBC abs 0.00 0.00 - 0.01 K/cumm [facility] Blood 04/07/2025 1:00 PM CDT 04/07/2025 5:04 PM CDT Sterling Sandoval MD LAB BLOOD ORDERABLES Fin al Result Performing Organization Address City/[facility]/ZIP Co de Phone Number [facility] [address] [place] [address] * Ferritin (04/07/2025 1:00 PM CDT) [facility] Ferritin 25 13 - 150 ng/mL Blood 04/07/2025 1:00 PM CDT 04/07/2025 7:13 PM CDT Sterling Sandoval MD LAB BLOOD ORDERABLES Fin al Result Performing Organization Address [facility] Co de Phone Number [facility] [address] [facility] [place], [place] [id number] * Creatinine (04/07/2025 1:00 PM CDT) [facility] Creatinine 0.83 0.60 - 1.10 mg/dL Blood 04/07/2025 1:00 PM CDT 04/07/2025 5:04 PM CDT Sterling Sandoval MD LAB BLOOD ORDERABLES Fin al Result Performing Organization Address [facility] de Phone Number [facility] [address] [facility] [place] [address] * (ABNORMAL) Hepatic function panel (04/07/2025 1:00 PM CDT) [facility] Bilirubin, total 0.4 0.1 - 1.2 mg/dL Bilirubin, direct <0.2 0.1 - 0.3 mg/dL [facility] Protein, pl 6.3(L) 6.5 - 8.5 g/dL [facility] Albumin 4.0 3.5 - 5.0 g/dL [facility] Alk phos 57 40 - 130 Units/L [facility] ALT 17 7 - 45 Units/L [facility] AST 19 10 - 45 Units/L [facility] Blood 04/07/2025 1:00 PM CDT 04/07/2025 5:04 PM CDT Sterling Sandoval MD LAB BLOOD ORDERABLES Fin al Result Performing Organization Address [facility] Co de Phone Number [facility] [address] [facility] [place] [address] from Last 3 Months Insurance [facility] PPO MEDICARE [facility] MEDICARE [employer] Care Teams Secondary Art Teacher Relationship Specialty Start Date End Date Nishant Meehan MD PCP - General Family Medicine 02/20/23 Missy Rdz MD [address] [facility] [address] [place] [address] Radiation Oncologist Radiation Oncology 06/21/24 Ryan Ghosh MD [address] [facility] [address] [place] [address] Consulting Physician Internal Medicine 06/21/24
--- OUTSIDE RECORDS SUMMARY | 2025-06-06 01:11 | XMS_ITS | Clinical Summary ---
Author Organization [facility] [employer] Address [address] [facility] [place] [address] Care Team Providers Care Gas And Oil Checker Name Role Phone Nishant Meehan MD Primary Care Provider + Source Comments [facility],non-owned Affiliates and Associated Physician Practices is amultiple site organization consisting of ambulatory clinics and hospital sitesin [place], [place], [place] and [place]. This disclosure is being madepursuant to the Care Everywhere program and may not contain all information available regarding this patient. Last updated 18.[facility] Allergies No known active allergies Medications * [...] fluticasone propionate (Flonase) 50 MCG/ACT nasal spray [place] 2 (two) sprays into each nostril 2 [...] Noted Date Diagnosed Date Multinodular goiter 08/02/2024 Immunizations Immunization Administration Dates Next Due INFLUENZA [...] on file Legal Sex Female 6:21 PM BEHAVIORAL ANALYST Gender Identity Female 01/21/2025 8:59 AM CDT Sexual Orientation Not on file Last Filed Vital Signs Vital Sign Reading Time Taken Comments Blood Pressure 123/83 09/15/2024 9:59 AM CDT Pulse 66 09/15/2024 9:59 AM CDT Temperature 36.7 C (98 F) 08/30/2024 6:26 PM BEHAVIORAL ANALYST Respiratory Rate 12 08/30/2024 6:50 PM BEHAVIORAL ANALYST Oxygen Saturation 93% 08/30/2024 6:50 PM BEHAVIORAL ANALYST Inhaled Oxygen Concentration - - Weight 63.5 [...] of 2) 2005 COVID-19 VACCINE (3 - 2024-2 6 season) 2025 09/09/2020, 08/12/2020 INFLUENZA VACCINE (#1) 2025 0, 03/24/2015 Respiratory Syncytial Virus (RSV) Vaccine Pt: [...] on patient's age to complete this topic Insurance MEDICARE [facility] [id number] Care Teams Gas And Oil Checker Relationship Specialty Start Date End Date Nishant Meehan MD [address] [place] [id number] PCP - General 10/20/15
--- OUTSIDE RECORDS SUMMARY | 2025-06-06 01:11 | XMS_ITS | Patient Health Record ---
Author Organization [facility] Address [address] [place] [address] Care Team Providers Care Laboratory Analyst Name Role Phone Mendez HEDRICK, Nishant Primary Care Provider Unav ailable Sterling Dixon Unavailable [phone] Sterling Dixon MD Unavailable Unavailabl e Allergies No Known Allergies Results Component Value Reference Range Notes CBC w auto diff Reviewed date:07/29/2024 11:14:48 PM Interpretation: Performing Lab:[facility] , [facility]. [facility] [address] Notes/Report: WBC 7.7 3.8-9.9 K/cumm Hgb 12.0 11.9-15.5 g/dL Hct 39.6 35.6-45.5 % Platelet Ct 288 150-400 K/cumm MPV 11.1 9.1-12.3 fL RBC 4.08 3.90-5.20 M/cumm MCV 97.1 81.3-96.4 fL MCH 29.4 27.1-33.3 pg MCHC 30.3 32.3-35.7 g/dL RDW CV 14.2 11.1-14.9 % RDW SD 50.5 35.7-48.1 fL NRBC Abs Auto 0.00 0.00-0.01 K/cumm Creatinine Reviewed date:07/29/2024 11:14:52 PM Interpretation: Performing Lab:[facility] , [address] [facility] [place] [address] Notes/Report: Creatinine 0.81 0.60-1.10 mg/dL Hep Func Panel Reviewed date:07/29/2024 11:14:41 PM Interpretation: Performing Lab:[facility] , [address] [place] [address] Notes/Report: Total Bilirubin 0.4 0.1-1.2 mg/dL Bilirubin, Direct <0.2 0.1-0.3 mg/dL Plasma Total Protein 6.7 6.5-8.5 g/dL Albumin 4.0 3.5-5.0 g/dL Alkaline Phosphatase 74 40-130 Units/L ALT 16 7-45 Units/L AST 16 10-45 Units/L CBC w auto diff Reviewed date:09/24/2024 06:47:11 AM Interpretation: Performing Lab:[facility] , [address] [place] [address] Notes/Report: WBC 7.7 3.8-9.9 K/cumm Hgb 12.4 11.9-15.5 g/dL Hct 40.0 35.6-45.5 % Platelet Ct 303 150-400 K/cumm MPV 11.3 9.1-12.3 fL RBC 4.12 3.90-5.20 M/cumm MCV 97.1 81.3-96.4 fL MCH 30.1 27.1-33.3 pg MCHC 31.0 32.3-35.7 g/dL RDW CV 14.7 11.1-14.9 % RDW SD 52.9 35.7-48.1 fL NRBC Abs Auto 0.00 0.00-0.01 K/cumm Creatinine Reviewed date:09/24/2024 06:47:17 AM Interpretation: Performing Lab:[facility] , [address] [place] [address] Notes/Report: Creatinine 0.71 0.60-1.10 mg/dL Hep Func Panel Reviewed date:09/24/2024 06:47:05 AM Interpretation: Performing Lab:[facility] , [address] [place] [address]. [facility] [address] Notes/Report: Total Bilirubin 0.5 0.1-1.2 mg/dL Bilirubin, Direct 0.2 0.1-0.3 mg/dL Plasma Total Protein 7.0 6.5-8.5 g/dL Albumin 4.0 3.5-5.0 g/dL Alkaline Phosphatase 75 40-130 Units/L ALT 17 7-45 Units/L AST 17 10-45 Units/L eGFR Reviewed date:01/26/2025 07:54:56 PM Interpretation: Performing Lab:[facility] , [address] [place] [address]. [place] [address] Notes/Report: eGFR 88 >=60 mL/min/1.73 m2 Interpretive [...] Current interpretive data was last reviewed 2021. Iron Profile Reviewed date:01/27/2025 03:24:19 PM Interpretation: Performing Lab:[facility] , [address] [place] [address]. [facility] [address] Notes/Report: Total Iron 84 35-145 mcg/dL Total Iron Bind Capacity 434 250-400 mcg/dL Transferrin Saturation 19 20-50 % Ferritin Reviewed date:01/27/2025 03:24:19 PM Interpretation: Performing Lab:[facility] , [address] [place] [address]. [place] [address] Notes/Report: Ferritin 12 13-150 ng/mL Differential Automated Reviewed date:01/26/2025 07:54:46 PM Interpretation: Performing Lab:[facility] , [address] [place] [address]. [place] [address] Notes/Report: Neut Abs 3.99 1.50-6.50 K/cumm ImmGran Abs 0.02 0.00-0.10 K/cumm Lymphocyte Abs 2.85 0.80-3.30 K/cumm Pendleton Abs 0.64 0.20-0.80 K/cumm Eos Abs 0.17 [...] Interpretive Data was last revised on 2017. P[place]leton Pct 8.3 Interpretive Data Percent cell count [...] was last revised on 2017. eGFR Reviewed date:09/24/2024 06:51:16 AM Interpretation: Performing Lab:[facility] , [address] [place] [address]. [facility] [address] Notes/Report: eGFR >90 >=60 mL/min/1.73 m2 Interpretive [...] Automated Reviewed date:09/24/2024 06:50:26 AM Interpretation: Performing Lab:[facility] , [address] [place] [address]. [facility] [address] Notes/Report: Neut Abs 3.7 1.5-6.5 K/cumm ImmGran Abs 0.0 0.0-0.1 K/cumm Lymphocyte Abs 2.9 0.8-3.3 K/cumm P[place]leton Abs 0.8 0.2-0.8 K/cumm Eos Abs 0.2 [...] Interpretive Data was last revised on 2017. P[place]leton Pct 9.8 Interpretive Data Percent cell count [...] was last revised on 2017. eGFR Reviewed date:07/29/2024 11:15:52 PM Interpretation: Performing Lab:[facility] , [address] [place] [address]. [place] [address] Notes/Report: eGFR 79 >=60 mL/min/1.73 m2 Interpretive [...] Automated Reviewed date:07/29/2024 11:15:47 PM Interpretation: Performing Lab:[facility] , [address] [place] [address]. [place] [address] Notes/Report: Neut Abs 3.9 1.5-6.5 K/cumm ImmGran Abs 0.0 0.0-0.1 K/cumm Lymphocyte Abs 2.8 0.8-3.3 K/cumm Pendleton Abs 0.7 0.2-0.8 K/cumm Eos Abs 0.2 [...] Interpretive Data was last revised on 2017. P[place]leton Pct 9.5 with absolute values may lead to misinterpretation of CBC data. Current Interpretive Data was last revised on 2017. Interpretive Data Percent cell count reference ranges are not reported, since discordance Eos Pct 2.2 Interpretive Data Percent cell [...] Rate Reviewed date:01/26/2025 07:53:30 PM Interpretation: Performing Lab:[facility] , [address] [place] [address]. [place] [address] Notes/Report: ESR 10 1-30 mm/hr Hep Func Panel Reviewed date:01/26/2025 07:53:15 PM Interpretation: Performing Lab:[facility] , [address] [place] [address]. [place] [address] Notes/Report: Total Bilirubin 0.4 0.1-1.2 mg/dL Bilirubin, Direct <0.2 0.1-0.3 mg/dL Plasma Total Protein 6.8 6.5-8.5 g/dL Albumin 3.9 3.5-5.0 g/dL Alkaline Phosphatase 84 40-130 Units/L ALT 17 7-45 Units/L AST 20 10-45 Units/L Creatinine Reviewed date:01/26/2025 07:53:24 PM Interpretation: Performing Lab:[facility] , [address] [place] [address]. [place] [address] Notes/Report: Creatinine 0.74 0.60-1.10 mg/dL CBC w auto diff Reviewed date:01/27/2025 10:11:29 AM Interpretation: Performing Lab:[facility] , [address] [place] [address]. [facility] [address] Notes/Report: WBC 7.74 3.80-9.90 K/cumm Hgb 11.6 11.9-15.5 g/dL Hct 37.7 35.6-45.5 % Platelet Ct 319 150-400 K/cumm MPV 10.7 9.1-12.3 fL RBC 3.89 3.90-5.20 M/cumm MCV 96.9 81.3-96.4 fL MCH 29.8 27.1-33.3 pg MCHC 30.8 32.3-35.7 g/dL RDW CV 14.1 11.1-14.9 % RDW SD 50.1 35.7-48.1 fL NRBC Abs Auto 0.00 0.00-0.01 K/cumm C Reactive Protein Reviewed date:01/26/2025 07:54:39 PM Interpretation: Performing Lab:[facility] , [address] [place] [address]. [facility] [address] Notes/Report: C-Reactive Protein 5.2 <=10.0 mg/L CBC w auto diff Reviewed date:11/23/2024 02:24:27 PM Interpretation: Performing Lab:[facility] , [address] [place] [address]. [facility] [address] Notes/Report: WBC 6.47 3.80-9.90 K/cumm Hgb 11.5 11.9-15.5 g/dL Hct 37.2 35.6-45.5 % Platelet Ct 341 150-400 K/cumm MPV 10.6 9.1-12.3 fL RBC 3.83 3.90-5.20 M/cumm MCV 97.1 81.3-96.4 fL MCH 30.0 27.1-33.3 pg MCHC 30.9 32.3-35.7 g/dL RDW CV 14.6 11.1-14.9 % RDW SD 51.9 35.7-48.1 fL NRBC Abs Auto 0.00 0.00-0.01 K/cumm Creatinine Reviewed date:11/18/2024 08:11:34 PM Interpretation: Performing Lab:[facility] , [address] [place] [address] Notes/Report: Creatinine 0.78 0.60-1.10 mg/dL Hep Func Panel Reviewed date:11/18/2024 08:16:07 PM Interpretation: Performing Lab:[facility] , [address] [place] [address] Notes/Report: Total Bilirubin 0.3 0.1-1.2 mg/dL Bilirubin, Direct <0.2 0.1-0.3 mg/dL Plasma Total Protein 6.1 6.5-8.5 g/dL Albumin 3.7 3.5-5.0 g/dL Alkaline Phosphatase 70 40-130 Units/L ALT 17 7-45 Units/L AST 17 10-45 Units/L CBC w auto diff Reviewed date:04/08/2025 06:52:29 AM Interpretation: Performing Lab:[facility] , [address] [place] [address] Notes/Report: WBC 5.84 3.80-9.90 K/cumm Hgb 11.6 11.9-15.5 g/dL Hct 39.5 35.6-45.5 % Platelet Ct 264 150-400 K/cumm MPV 11.2 9.1-12.3 fL RBC 3.97 3.90-5.20 M/cumm MCV 99.5 81.3-96.4 fL MCH 29.2 27.1-33.3 pg MCHC 29.4 32.3-35.7 g/dL RDW CV 15.1 11.1-14.9 % RDW SD 55.8 35.7-48.1 fL NRBC Abs Auto 0.00 0.00-0.01 K/cumm Creatinine Reviewed date:04/08/2025 06:45:32 AM Interpretation: Performing Lab:[facility] , [address] [place] [address]. [facility] [address] Notes/Report: Creatinine 0.83 0.60-1.10 mg/dL Hep Func Panel Reviewed date:04/08/2025 06:45:03 AM Interpretation: Performing Lab:[facility] , [address] [place] [address]. [facility] [address] Notes/Report: Total Bilirubin 0.4 0.1-1.2 mg/dL Bilirubin, Direct <0.2 0.1-0.3 mg/dL Plasma Total Protein 6.3 6.5-8.5 g/dL Albumin 4.0 3.5-5.0 g/dL Alkaline Phosphatase 57 40-130 Units/L ALT 17 7-45 Units/L AST 19 10-45 Units/L Ferritin Reviewed date:04/08/2025 01:47:46 PM Interpretation: Performing Lab:[facility] , [address] [place] [address]. [facility] [address] Notes/Report: Ferritin 25 13-150 ng/mL Iron Profile Reviewed date:04/08/2025 01:47:47 PM Interpretation: Performing Lab:[facility] , [address] [place] [address]. [facility] [address] Notes/Report: Total Iron 114 35-145 mcg/dL Total Iron Bind Capacity 330 250-400 mcg/dL Transferrin Saturation 35 20-50 % eGFR Reviewed date:04/08/2025 06:41:30 AM Interpretation: Performing Lab:[facility] , [address] [place] [address]. [facility] [address] Notes/Report: eGFR 76 >=60 mL/min/1.73 m2 Interpretive Data Reference Interval [...] was last reviewed 2021. Differential Automated Reviewed date:04/08/2025 06:43:31 AM Interpretation: Performing Lab:[facility] , [address] [facility]. [place] [address] Notes/Report: Neut Abs 2.60 1.50-6.50 K/cumm ImmGran Abs 0.02 0.00-0.10 K/cumm Lymphocyte Abs 2.52 0.80-3.30 K/cumm Pendleton Abs 0.46 0.20-0.80 K/cumm Eos Abs 0.18 0.00-0.50 K/cumm Baso Abs 0.06 0.00-0.10 K/cumm Neut Pct 44.5 Interpretive Data Percent cell count reference ranges [...] was last revised on 2017. Lymph Pct 43.2 Interpretive Data Percent cell count reference ranges are not reported, since discordance with absolute values may lead to misinterpretation of CBC data. Current Interpretive Data was last revised on 2017. P[place]leton Pct 7.9 Interpretive Data Percent cell count reference ranges are not reported, since discordance with absolute values may lead to misinterpretation of CBC data. Current Interpretive Data was last revised on 2017. Eos Pct 3.1 Interpretive Data Percent cell count reference ranges are not reported, since discordance with absolute values may lead to misinterpretation of CBC data. Current Interpretive Data was last revised on 2017. Baso Pct 1.0 Interpretive Data Percent cell count reference ranges are not reported, since discordance with absolute values may lead to misinterpretation of CBC data. Current Interpretive Data was last revised on 2017. eGFR Reviewed date:11/18/2024 08:15:25 PM Interpretation: Performing Lab:[facility] , [address] [facility]. [place] [address] Notes/Report: eGFR 82 >=60 mL/min/1.73 m2 Interpretive [...] was last reviewed 2021. Differential Automated Reviewed date:11/18/2024 08:14:34 PM Interpretation: Performing Lab:[facility] , [address] [place] [address]. [facility] [address] Notes/Report: Neut Abs 3.21 1.50-6.50 K/cumm ImmGran Abs 0.02 0.00-0.10 K/cumm Lymphocyte Abs 2.38 0.80-3.30 K/cumm Pendleton Abs 0.70 0.20-0.80 K/cumm Eos Abs 0.12 [...] Interpretive Data was last revised on 2017. P[place]leton Pct 10.8 Interpretive Data Percent cell count [...] Interpretive Data was last revised on 2017. CBC w auto diff Reviewed date:06/01/2025 05:34:17 AM Interpretation: Performing Lab:[facility] , [address] [place] [address]. [place] [address] Notes/Report: WBC 7.18 3.80-9.90 K/cumm Hgb 12.0 11.9-15.5 g/dL Hct 38.0 35.6-45.5 % Platelet Ct 272 150-400 K/cumm MPV 11.4 9.1-12.3 fL RBC 3.92 3.90-5.20 M/cumm MCV 96.9 81.3-96.4 fL MCH 30.6 27.1-33.3 pg MCHC 31.6 32.3-35.7 g/dL RDW CV 14.6 11.1-14.9 % RDW SD 52.6 35.7-48.1 fL NRBC Abs Auto 0.00 0.00-0.01 K/cumm Hep Func Panel Reviewed date:06/01/2025 05:34:09 AM Interpretation: Performing Lab:[facility] , [address] [place] [address]. [place] [address] Notes/Report: Total Bilirubin 0.4 0.1-1.2 mg/dL Bilirubin, Direct <0.2 0.1-0.3 mg/dL Plasma Total Protein 6.4 6.5-8.5 g/dL Albumin 3.8 3.5-5.0 g/dL Alkaline Phosphatase 67 40-130 Units/L ALT 18 7-45 Units/L AST 16 10-45 Units/L Differential Automated Reviewed date:06/01/2025 05:34:32 AM Interpretation: Performing Lab:[facility] , [address] [place] [address]. [place] [address] Notes/Report: Neut Abs 3.88 1.50-6.50 K/cumm ImmGran Abs 0.02 0.00-0.10 K/cumm Lymphocyte Abs 2.48 0.80-3.30 K/cumm Pendleton Abs 0.60 0.20-0.80 K/cumm Eos Abs 0.16 0.00-0.50 K/cumm Baso Abs 0.04 0.00-0.10 K/cumm Neut Pct 54.0 Interpretive Data Percent cell count reference ranges [...] was last revised on 2017. Lymph Pct 34.5 Interpretive Data Percent cell count reference ranges are not reported, since discordance with absolute values may lead to misinterpretation of CBC data. Current Interpretive Data was last revised on 2017. Pendleton Pct 8.4 Interpretive Data Percent cell count reference ranges [...] Interpretive Data was last revised on 2017. Creatinine Reviewed date:06/01/2025 05:34:21 AM Interpretation: Performing Lab:[facility] , [address] [facility]. [place] [address] Notes/Report: Creatinine 0.74 0.60-1.10 mg/dL QTB Gold Reviewed date:06/03/2025 10:10:09 AM Interpretation: Performing Lab:[facility] , [address] [facility] [place] [address] Notes/Report: QuantiFERON TB Gold Negative Negative M. tuberculosis is unlikely. A single negative [...] Result' is an Interferon-gamma level <0.35 IU/mL. No interferon-gamma response to M. tuberculosis antigens was detected. Latent infection with TB-Nil 0.00 TB2-Nil 0.00 Mitogen-Nil >10.00 NIL 0.02 Test Performed by: [facility] [address] [place] [address] Rn Telehealth: Rama Sanchez Ph.D.; CLIA# [id number] eGFR Reviewed date:06/01/2025 05:34:51 AM Interpretation: Performing Lab:[facility] , [address] [place] [address]. [facility] [address] Notes/Report: eGFR 88 >=60 mL/min/1.73 m2 Interpretive [...] Current interpretive data was last reviewed 2021. Reason For Referral Reason 08.26.2024 Jenny vides J1602 dx M45.9 2mg/kg every 8 wks. medicare/[employer] [place] [employer] [place] REQUIRED Diagnosis 1 Ankylosing spondylit is of unspecified sites in spine (M45.9) Referral Organization [facility] Referring Provider First Name Sterling Referring Provider Last Name Zack Referring Provider Speciality Rheumatolo gy Referred Organization [facility] Referred Provider Zack Sterling Referred Address [address] [facility] [address],[place], [place],[address],[place] Referred Provider Specialty Rheumatology Procedure 1 INJECTION GOLIMUMAB 1 MG FOR IV USE (J1602) Referral Priority Routine Medications Medication SIG (Take, Route, Frequency, Duration) Notes Start Date End Date Status Tylenol 8 Hour Arthritis Pain 650 MG [...] DAY NEEDED 90 DAYS; Duration: 90 Active Calcium 500 + D (D3) 500-125 mg-unit take 1 tablet by oral route 2 times a day oral 2 *Reorder from [employer] for eRx and Interaction Alerts* Active Triamcinolone Acetonide 0.1 % place a small amount to the affected area by mucous membrane route once daily at bedtime Mouth/Throat 1 08/15/2021 Active Estradiol 1 MG take 1 tablet (1 mg) by oral route once daily Oral 1 Active methIMAzole oral *Pick strength-f orm from [employer] for eRX* Active Escitalopram Oxalate 20 MG take 1 tablet (20 mg) by oral route once daily Oral 1 Active Problems Problem Type SNOMED Code ICD Code Onset Dates Problem Status W/U Status Risk Notes Problem Thyrotoxicosis (55224756) Thyrotoxicosis, unspecified without thyrotoxic crisis or storm (E05.90) Active confirmed 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, 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 Problem Ankylosing spondylitis (2980612) Ankylosing spondylitis of unspecified sites in spine (M45.9) 1 Active confirmed Problem Sciatica (55083942) Sciatica, unspecified side (M54.30) Active confirmed Vital Signs Heart Rate 63 /min 04/06/2025 Temperature 98.1 degrees Fahrenheit 05/31/2025 Oximetry 96 % 01/26/2025 Height-cm 162.56 cm 05/31/2025 Blood pressure diastolic 78 mm Hg 05/31/2025 Weight-kg 66.5 kg 05/31/2025 Height 64 in 05/31/2025 Blood pressure systolic 122 mm Hg 05/31/2025 Weight 146.6 lbs 05/31/2025 BMI 25.16 kg/m2 05/31/2025 Encounters Encounter Location Date Provider Diagnosis [facility] [address] [place] [address] 07/29/2024 Sterling DiValerio Ankylosing spondylitis of unspecified sites in spine M45.9 [facility] [address] [place] [address] 09/23/2024 Sterling DiValerio Ankylosing spondylitis of unspecified sites in spine M45.9 [facility] [address] [place] [address] 09/23/2024 Sterling DiValerio Ankylosing spondylitis of unspecified sites in spine M45.9 ; Sciatica, unspecified side M54.30 and Other terminal worker (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 Z79.899 [facility] [address] [place] [address] 11/18/2024 Sterling DiValerio Ankylosing spondylitis M45.9 [facility] [address] [place] [address] 01/26/2025 Sterling DiValerio Ankylosing spondylitis of unspecified sites in spine M45.9 ; Sciatica, unspecified side M54.30 and Other terminal worker (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 Z79.899 [facility] [address] [place] [address] 01/26/2025 Sterling DiValerio Ankylosing spondylitis M45.9 [facility] [address] [place] [address] 04/06/2025 Sterling DiValerio Ankylosing spondylitis of unspecified sites in spine M45.9 [facility] [address] [place] [address] 05/31/2025 Sterling Butlerrosendo Ankylosing spondylitis of unspecified sites in spine M45.9 [facility] [address] [place] [address] 05/31/2025 Sterling Dixon Ankylosing spondylitis of unspecified sites in spine M45.9 ; Sciatica, unspecified side M54.30 and Other terminal worker (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 Z79.899 [facility] [address] [place] [address] 07/22/2024 Sterling Butlerrosendo [facility] [address] [place] [address] 04/08/2025 Sterling Zack Assessments Encounter Date Diagnosis (ICD Code) Assessment Notes Treatment Notes Treatment Clinical Notes Section Notes 07/29/2024 Ankylosing spondylitis of unspecified sites in [...] (ICD-10 - M45.9) [facility] infusion protocol. 04/06/2025 Ankylosing spondylitis of unspecified sites in spine (ICD-10 - M45.9) 05/31/2025 Ankylosing spondylitis of unspecified sites in spine (ICD-10 - M45.9) 05/31/2025 Ankylosing spondylitis of unspecified sites in spine (ICD-10 - M45.9) [facility] infusion protocol. 05/31/2025 Sciatica, unspecified side (ICD-10 - M54.30) 01/26/2025 Sciatica, unspecified side (ICD-10 - M54.30) 09/23/2024 Sciatica, unspecified side (ICD-10 - M54.30) 09/23/2024 Other terminal worker (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 (ICD-10 - Z79.899) 01/26/2025 Other terminal worker (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 (ICD-10 - Z79.899) 05/31/2025 Other long-term (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 (ICD-10 - Z79.899) Plan Of Treatment Pending Test Test Name Order Date CBC With Differential/Platelet CBC With Differential/Platelet Hepatic Function Panel (7) 09/02/2023 Hepatic Function Panel (7) 07/08/2023 Creatinine 07/08/2023 Creatinine 09/02/2023 Next Appt Details Provider Name:Sterling tavarez, 07/26/2025 11:00:00 AM, [address], [place], [address], Provider Name:Sterling tavarez, 09/20/2025 11:00:00 AM, [address], [place], [address], Provider Name:Sterling tavarez, 09/20/2025 11:00:00 AM, [address], [place], [address], Insurance Providers Payer Name Payer Address Payer Phone Subscriber Number Group Number Insured Name Patient Relationship to Insured Coverage Start Date Coverage End Date Medicare [address] [address] [place] [address] [id number] Vilma [place] Self - patient is the insured [address] [id number] Vilma [place] Self - patient is the insured Medical (General) History Medical History History ICD Code Ankylosing spondylitis, Date of Onset: 0 12/27/2020; Hyperthyroidism; Tiffanie's disease, 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
[2025-06-06 11:45] VITALS: BP 97/65; PULSE 74; RESP 18; TEMP 36.3; O2SAT 99
[2025-06-06] MEDS: LACTATED RINGERS 1,000 ML 150 ML IV CONT (11:48)
--- NOTE | 2025-06-06 12:37 | P.PNAN_ITS ---
Anes - Initial Pre Proc Eval Procedure: Operation Date: 06/06/25 13:00 Proposed Procedures p Diagnostic Colonoscopy - Casper Mcclain MD Date/Time: 06/06/25 12:37 Surgeon: Casper Mcclain MD Pre Op Diagnosis: Noninfective gastroenteritis and colitis, unspecif Patient Data Age: 69 Gender: F Height: 1.57 m Weight: 63.1 kg Last Vital Signs Temp 36.3 C L 06/06/25 11:45 Pulse 74 06/06/25 11:45 Resp 18 06/06/25 11:45 BP 97/65 L 06/06/25 11:45 Pulse Ox 99 06/06/25 11:45 O2 Del Method Room Air 06/06/25 11:45 Allergies Allergy/AdvReac Type Severity Reaction Status Date / Time No Known Allergies Allergy Verified 06/02/25 12:32 Home Medications ?Medication ?Instructions ?Recorded ?Confirmed ?Type calcium carbonate (Calcium 600) 600 mg PO BID 03/22/21 06/02/25 History golimumab 12.5 mg/mL intravenous See Rx Instructions . Route .COMPLEX 03/22/21 06/02/25 History solution (Simponi ARIA) acetaminophen 650 mg 650 mg PO Q12H PRN Pain 04/3006/02/25 History tablet,extended release (Tylenol Arthritis Pain) diclofenac sodium 75 mg 75 mg PO BID 04/06/24 History tablet,delayed release escitalopram oxalate 20 mg tablet See Rx Instructions .Route 09/20/24 06/06/25 Rx .COMPLEX #90 tabs estradiol 1 mg tablet 1 mg PO DAILY #90 tabs 11/0206/06/25 Rx ferrous sulfate 325 mg (65 mg 325 mg PO DAILY 03/09/25 06/06/25 History iron) tablet (iron) atorvastatin 20 mg tablet See Rx Instructions .Route 0 03/15/25 06/06/25 Rx .COMPLEX #90 tabs omeprazole 20 mg capsule,delayed See Rx Instructions . Route 03/15/25 06/06/25 Rx release .COMPLEX #90 caps hyoscyamine sulfate 0.125 mg tablet 0.125 mg PO QID NM N abdominal pain 05/16/25 06/02/25 Rx #20 tabs sodium,potassium,mag sulfates 17.5 See Rx Instructions PO .COMPLEX 11/19/25 12/04/25 Rx gram-3.13 gram-1.6 gram oral soln #354 mL (Suprep Bowel Prep Kit) alprazolam 0.25 mg tablet 0.25 mg PO TID PRN anxiety # 20 tabs 05/19/25 06/02/25 Rx zolpidem 10 mg tablet 10 mg PO QHS PRN insomnia 06/02/25 History Patient hx anesthesia problems: none Family hx anesthesia problems: none Results Review: All pre-operative results and documents have been reviewed as part of the pre- operative evaluation. [facility] Past Medical History Medical History (Updated 05/16/25 @ 11:02 by Rossy Burnham, JAMIE) GERD (gastroesophageal reflux disease) Palpitations Normal colonoscopy 04/19 Dr. Infante [facility] Osteopenia Ankylosing spondylitis Thyrotoxicosis, unspecified without thyrotoxic crisis or storm Major depressive disorder, recurrent, mild History of depression History of gastroesophageal reflux (GERD) Surgical History Surgical History History of thyroid surgery History of cholecystectomy History of hysterectomy Family History Family History Sibling Family history of coronary artery disease Mother Family history of malignant neoplasm of breast in first degree relative Hypertension Social History Social History Smoking packs per day: 1 Smoking cigarettes per day: 20.0 Years smoked: 20 Smoking pack-years: 20.00 Smoking status: Former smoker Tobacco type: cigarettes Second hand tobacco smoke exposure: No Smoking end date: 12/28/01 Alcohol intake: current Drinks per week: 3 Substance use: never Lack of Transportation: No Lack of Food: Never True Current Housing: I Have Housing Concerned About Future Housing: No Difficulty Paying Gas/Electric Bills: No Difficulty Paying for Meds: No Currently Unemployed: No Education: Associate Degree Difficulty w/ Childcare or Family Care: No Living arrangements: alone Additional living arrangements comments: HUSB Gender identity (if verbalized by the patient): Female Spiritual care concerns: No Anes - Eval Final PreProcedure Day of Procedure 06/06/25 12:37 Patient weight: overweight Heart: regular rate and rhythm Lungs: clear to auscultation Airway: Mallampati scale class II Neurological: alert and oriented Last oral intake: >/= 8 hours ASA classification: II Emergent: no Anesthetic plan: proceed Anesthesia type and monitoring: general GIVS and standard monitoring Results Review: All pre-operative results and documents have been reviewed as part of the pre- operative evaluation. Informed Consent: The patient's anesthetic plan and its attendant risks and benefits were discus sed with the patient/family/POA. Questions were solicited and answers provided to the satisfaction of the patient/family/POA.
--- NOTE | 2025-06-06 12:41 | WPDHPUPDATE1 ---
History and Physical Update Update Date/Time: 06/06/25 12:41 History and Physical has been reviewed, including an updated exam of the patient. There are NO changes in the patient's condition. Risks, benefits, and alternatives have been discussed and questions answered. Patient agrees to proceed with procedure.
--- NOTE | 2025-06-06 12:54 | S_PTH ---
PATIENT: Vilma Carlisle LOC: [facility]#:[id number] AGE/SX: 69/F ROOM: RE06/06/[address]: Casper Mcclain MD : 1955 BED: DIS: 06/06/2025 SPEC #: [id number] RECD: 06/06/25 14:36 STATUS: MARY REKrista #: [id number] JAN: 06/06/25 12:[address]: Casper Mcclain DEPT: [facility] Surgical RECD BY: Anuja Ventura ENTERED: 06/06/25 14:37 SP TYPE: Surgical OTHR DR: Radha Mercado, DO Tissues: A - Colon Biopsy Procedures: Hematoxylin and Eosin Stain Gross and Microscopic Level 4
[2025-06-06 12:55] VITALS: BP 95/35; PULSE 66; RESP 14; O2SAT 99
[2025-06-06 13:05] VITALS: BP 106/47; PULSE 54; RESP 17; O2SAT 100
[2025-06-06 13:15] VITALS: BP 124/62; PULSE 57; RESP 15; O2SAT 99
== END 2025-06-06 13:25 | disposition home or self-care (01) ==
PROVIDERS: PCP Family Medicine; Referring Provider Nurse Practitioner Family; Visit Provider Internal Medicine Gastroenterology
PROC: 0DJD8ZZ Inspection of Lower Intestinal Tract, Via Natural or Artificial Opening Endoscopic (ICD-10-PCS; CPT 45378; principal; 2025-06-06 13:00)
DX: K52.9 Noninfective gastroenteritis and colitis, unspecified (principal); K64.8 Other hemorrhoids; K57.30 Diverticulosis of large intestine without perforation or abscess without bleeding; K21.9 Gastro-esophageal reflux disease without esophagitis; E78.5 Hyperlipidemia, unspecified; R00.2 Palpitations; M85.88 Other specified disorders of bone density and structure, other site; E05.90 Thyrotoxicosis, unspecified without thyrotoxic crisis or storm; F33.0 Major depressive disorder, recurrent, mild; M45.9 Ankylosing spondylitis of unspecified sites in spine; Z79.620 Long term (current) use of immunosuppressive biologic; Z98.890 Other specified postprocedural states; Z90.49 Acquired absence of other specified parts of digestive tract; Z87.891 Personal history of nicotine dependence; Z80.3 Family history of malignant neoplasm of breast; Z82.49 Family history of ischemic heart disease and other diseases of the circulatory system
CPT/HCPCS: 45380; 88305; J2704; J7120